=== PATIENT | male | born 1950 | race Hispanic/Latino ===

== ENCOUNTER 2017-06-05 10:54 | Emergency (ER) | payer MEDICARE ==
--- NOTE | 2017-06-05 14:33 | Emergency Department Report ---
ED Extremity Problem HPI - General Chief complaint: Extremity Injury, Lower Stated complaint: LT FOOT SWOLLEN Time Seen by Provider: 06/05/17 14:05 Source: patient, family Mode of arrival: Ambulatory Limitations: No Limitations - History of Present Illness Initial comments: Patient here complaining of left foot swelling for several days. Patient reports that the left side of his other foot appears red. He reports pain at 7 out of 10 . Pain is achy in. Patient denies any injuries. Patient and says that he has a history of pulmonary embolism and he is on aspirin. Denies any chest pain or shortness of breath. Denies any fever or chills. Denies any nausea or vomiting. Patient does have a primary care physician who is Dr. Magallon. Patient also has history of CVA with left-sided deficit. He drove himself to the emergency room. Patient is fully ambulatory. He has a history of deep vein thrombosis in his right arm. Diabetes GERD heart attack in 2012 in 2013, hypertension 15 years on medication COPD and home O2, coronary stent, AAA repair, bilateral knee replacement. He did not take any pain medication prior to coming to the emergency room. He said he had similar incident in the past and his doctor told him it was from standing to long and to elevate his feet but because he's had the redness and also has a history of blood clot he wanted to come in to get it checked MD Complaint: extremity pain, extremity swelling Onset/Timin -: days(s) Location: left, lower extremity History of Same: Yes -: No myalgia, Yes arthralgia, No fever, No associated dyspnea, No associated chest pain Radiation: none Severity scale (0 -10): 7 Quality: aching Consistency: intermittent Improves with: nothing Worsens with: weight bearing, walking, palpation, rest Associated Symptoms: arthralgias, other (redness to left side of foot). denies : chest pain, shortness of breath, fever, myalgias, rash - Related Data Home Medications Medication Instructions Recorded Confirmed Last Taken Aspirin [Aspirin TAB] 81 mg PO QDAY 12/10/13 12/10/15 12/07/15 09:00 Sildenafil Citrate [Viagra] 50 mg PO QDAY PRN 01/11/15 12/10/15 12/08/15 09:00 oxyCODONE /ACETAMINOPHEN [Percocet 1 mg PO Q6H PRN 04/05/15 12/10/15 12/09/15 09 :00 5/325 mg] ALPRAZolam [Xanax TAB] 1 mg PO BID PRN 08/02/15 12/10/15 12/08/15 21:00 Insulin Lispro [HumaLOG VIAL] 7 units SUB-Q TID 08/02/15 12/10/15 12/09/15 12:00 Potassium Chloride [K-Dur] 20 meq PO BID 08/02/15 12/10/15 12/09/15 09:00 Previous Rx's Medication Instructions Recorded Last Taken Type Antacid [Alum-Mag Hydrox-Simeth 30 ml PO Q4H PRN oral.liqd 01/22/15 12/09/15 09 :00 Rx [id number]/[id number]] Furosemide [Lasix] 40 mg PO DAILY #30 tablet 01/22/15 12/09/15 09:00 Rx Levothyroxine [Synthroid] 100 mcg PO QAM #30 tablet 01/22/15 12/09/15 06:00 Rx Metolazone [Zaroxolyn] 2.5 mg PO QDAY #30 tablet 01/22/15 12/09/15 09:00 Rx Modafinil [Provigil] 200 mg PO QDAY #30 tablet 01/22/15 12/09/15 09:00 Rx Niacin/Simvastatin [Simcor 1,000 mg PO QHS #30 tbmp.24hr 01/22/15 12/09/15 09: 00 Rx 1,000-20 mg] Ranolazine ER [Ranexa ER] 500 mg PO BID #60 tablet 01/22/15 12/09/15 09:00 Rx Simvastatin [Zocor TAB] 20 mg PO QHS #30 tablet 01/22/15 12/09/15 22:00 Rx Zolpidem [Ambien] 10 mg PO QHS PRN tablet 01/22/15 12/09/15 22:00 Rx Arformoterol Nebu [Brovana Nebu] 15 mcg IH Q12HRT #1 ml 04/07/15 12/09/15 09:00 Rx DULoxetine [Cymbalta] 60 mg PO QDAY #30 capsule 04/07/15 12/09/15 09:[address] [Depakote Dr] 500 mg PO TID #90 tablet 04/07/15 12/09/15 09:00 Rx HYDROcodone/APAP 10-325 [[place] 1 each PO Q6H PRN #60 tablet 04/07/15 12/07/15 09 :00 Rx 10-325 mg TAB] Insulin Glargine [Lantus VIAL] 30 unit SUB-Q QHS #100 units 04/07/15 12/09/15 22 :00 Rx Losartan [Cozaar] 12.5 mg PO QDAY #30 tablet 04/07/15 12/09/15 09:00 Rx Metoprolol [Lopressor TAB] 25 mg PO QDAY #30 tablet 04/07/15 12/09/15 09:00 Rx OLANzapine [Zyprexa] 20 mg PO QHS #30 tablet 04/07/15 12/10/15 Rx metFORMIN [Glucophage] 500 mg PO BID #60 tablet 04/07/15 12/10/15 05:30 Rx Acetaminophen/Codeine [Tylenol 1 tab PO Q6H PRN #12 tab 06/05/17 Unknown Rx /Codeine # 3 tab] Clindamycin [Clindamycin CAP] 300 mg PO Q8H #30 cap 06/05/17 Unknown Rx Allergies Allergy/AdvReac Type Severity Reaction Status Date / Time Penicillins Allergy Severe Swelling Verified 10/22/15 07:35 bismuth subsalicylate AdvReac Vomiting Verified 10/15/15 16:09 [From Pepto-Bismol] squash Allergy Hives Uncoded 11/30/15 14:39 ED Review of Systems ROS: Stated complaint: LT FOOT SWOLLEN Other details as noted in HPI Comment: All other systems reviewed and negative Constitutional: denies: chills, fever Respiratory: no symptoms reported Cardiovascular: edema. denies: chest pain, palpitations, syncope Gastrointestinal: denies: abdominal pain, nausea, vomiting Musculoskeletal: joint swelling, arthralgia. denies: back pain Skin: change in color (redness to left side of foot) Neurological: denies: headache, numbness, paresthesias, confusion ED Past Medical Hx - Past Medical History Previous Medical History?: Yes Hx Hypertension: Yes (X 15 YRS) Hx CVA: Yes (L sided deficits) Hx Heart Attack/AMI: Yes (X 2 2011,2012) Hx Congestive Heart Failure: Yes (2010) Hx Diabetes: Yes Hx Deep Vein Thrombosis: Yes (RT ARM) Hx Pulmonary Embolism: Yes (RT SIDE 2011) Hx GERD: Yes Hx Renal Disease: No Hx Sickle Cell Disease: No Hx Arthritis: Yes Hx Seizures: Yes (LAST ONE 1 1/2 YR AGO) Hx COPD: Yes (Home O2) Hx HIV: No Additional medical history: Uses a cane for knee replacement surgery on right knee 2013. States has slight left side weakness from previous stroke. - Surgical History Past Surgical History?: Yes Hx Coronary Stent: Yes Hx Open Heart Surgery: Yes (CORONARY STENT X1;AAA) Additional Surgical History: bilateral knee replacement - Family History Family history: CAD/VT, hypertension - Social History Smoking Status: Former Smoker Substance Use Type: None Other Social History: lives with family - Medications Home Medications: Home Medications Medication Instructions Recorded Confirmed Last Taken Type Aspirin [Aspirin TAB] 81 mg PO QDAY 12/10/13 12/10/15 12/07/15 09:00 History Sildenafil Citrate [Viagra] 50 mg PO QDAY PRN 01/11/15 12/10/15 12/08/15 09:00 History Antacid [Alum-Mag Hydrox-Simeth 30 ml PO Q4H PRN oral.liqd 01/22/15 12/10/15 09:00 Rx [id number]/5Ml] Furosemide [Lasix] 40 mg PO DAILY #30 tablet 01/22/15 12/10/15 12/09/15 09:00 Rx Levothyroxine [Synthroid] 100 mcg PO QAM #30 tablet 01/22/15 12/10/15 12/09/15 06:00 Rx Metolazone [Zaroxolyn] 2.5 mg PO QDAY #30 tablet 01/22/15 12/10/15 12/09/15 09: 00 Rx Modafinil [Provigil] 200 mg PO QDAY #30 tablet 01/22/15 12/10/15 12/09/15 09:00 Rx Niacin/Simvastatin [Simcor 1,000 mg PO QHS #30 tbmp.24hr 01/22/15 12/10/1512/09 09:00 Rx 1,000-20 mg] Ranolazine ER [Ranexa ER] 500 mg PO BID #60 tablet 01/22/15 12/10/15 12/09/15 09 :00 Rx Simvastatin [Zocor TAB] 20 mg PO QHS #30 tablet 01/22/15 12/10/15 12/09/15 22: 00 Rx Zolpidem [Ambien] 10 mg PO QHS PRN tablet 01/22/15 12/10/15 12/09/15 22:00 Rx oxyCODONE /ACETAMINOPHEN [Percocet 1 mg PO Q6H PRN 04/05/15 12/10/15 12/09/15 09 :00 History 5/325 mg] Arformoterol Nebu [Brovana Nebu] 15 mcg IH Q12HRT #1 ml 04/07/15 12/10/15 09:00 Rx DULoxetine [Cymbalta] 60 mg PO QDAY #30 capsule 04/07/15 12/10/15 12/09/15 09: 00 Rx Divalproex [Good Ariza] 500 mg PO TID #90 tablet 04/07/15 12/10/15 12/09/15 09:00 Rx HYDROcodone/APAP 10-325 [[place] 1 each PO Q6H PRN #60 tablet 04/07/15 12/10/15 09:00 Rx 10-325 mg TAB] Insulin Glargine [Lantus VIAL] 30 unit SUB-Q QHS #100 units 04/07/15 12/10/15 22:00 Rx Losartan [Cozaar] 12.5 mg PO QDAY #30 tablet 04/07/15 12/10/15 12/09/15 09:00 Rx Metoprolol [Lopressor TAB] 25 mg PO QDAY #30 tablet 04/07/15 12/10/15 12/09/15 09:00 Rx OLANzapine [Zyprexa] 20 mg PO QHS #30 tablet 04/07/15 12/10/15 12/10/15 Rx metFORMIN [Glucophage] 500 mg PO BID #60 tablet 04/07/15 12/10/15 12/10/15 05: 30 Rx ALPRAZolam [Xanax TAB] 1 mg PO BID PRN 08/02/15 12/10/15 12/08/15 21:00 History Insulin Lispro [HumaLOG VIAL] 7 units SUB-Q TID 08/02/15 12/10/15 12/09/15 12: 00 History Potassium Chloride [K-Dur] 20 meq PO BID 08/02/15 12/10/15 12/09/15 09:00 History Acetaminophen/Codeine [Tylenol 1 tab PO Q6H PRN #12 tab 06/05/17 Unknown Rx /Codeine # 3 tab] Clindamycin [Clindamycin CAP] 300 mg PO Q8H #30 cap 06/05/17 Unknown Rx ED Physical Exam - General Limitations: No Limitations General appearance: alert, in no apparent distress - Head Head exam: Present: atraumatic, normocephalic, normal inspection - Eye Eye exam: Present: normal appearance, PERRL, EOMI Pupils: Present: normal accommodation - ENT ENT exam: Present: normal exam, normal orophraynx, mucous membranes moist, TM's normal bilaterally, normal external ear exam - Neck Neck exam: Present: normal inspection, full ROM. Absent: tenderness, meningismus, lymphadenopathy - Respiratory Respiratory exam: Present: normal lung sounds bilaterally. Absent: respiratory distress, wheezes, rales, rhonchi, stridor, chest wall tenderness, accessory muscle use - Cardiovascular Cardiovascular Exam: Present: regular rate, normal rhythm, normal heart sounds - GI/Abdominal GI/Abdominal exam: Present: soft, normal bowel sounds. Absent: distended, tenderness, guarding, rebound, rigid - Extremities Exam Extremities exam: Present: normal inspection - Expanded Lower Extremity Exam Left Hip exam: Present: normal inspection, full ROM, pelvic stability. Absent: tenderness, swelling, abrasion, laceration, ecchymosis, deformity, crepidus, dislocation, erythema, external rotation, internal rotation, shortening Upper Leg exam: Present: normal inspection, full ROM. Absent: tenderness, swelling, abrasion, laceration, ecchymosis, deformity, crepidus, dislocation, erythema Knee exam: Present: normal inspection, full ROM, full knee extension. Absent: tenderness, swelling, abrasion, laceration, ecchymosis, deformity, crepidus, dislocation, erythema, effusion, pain w/ pronation/supination, posterior draw sign, pain/laxity with valgus, pain/laxity with varus Lower Leg exam: Present: normal inspection, full ROM. Absent: tenderness, swelling, abrasion, laceration, ecchymosis, deformity, crepidus, dislocation, erythema, palpable cord, Ever's sign Ankle exam: Present: normal inspection, full ROM, swelling. Absent: tenderness , abrasion, laceration, ecchymosis, deformity, crepidus, dislocation, erythema Foot/Toe exam: Present: normal inspection, full ROM, tenderness (inner lateral foot anteriorly), swelling (lateral foot with mild swelling), erythema (mild erythema to inner lateral foot). Absent: abrasion, laceration, ecchymosis, deformity, crepidus, dislocation, amputation, puncture wound, foreign body, calcaneal tenderness, tenderness at base of 5th metatarsal, nail avulsion, subungual hematoma Neuro vascular tendon exam: Present: no vascular compromise. Absent: pulse deficit, abnormal cap refill, motor deficit, sensory deficit, tendon deficit, extremity cold to touch, pallor, abnormal 2-point discrimination, decreased fine /light touch, foot drop, peroneal nerve deficit, significant pain with passive ROM of distal joint Gait: Positive: observed and limited by pain - Back Exam Back exam: Present: normal inspection, full ROM. Absent: tenderness, CVA tenderness (R), CVA tenderness (L), muscle spasm, paraspinal tenderness, vertebral tenderness, rash noted - Neurological Exam Neurological exam: Present: alert, oriented X3, abnormal gait (abnormal gait to left lower extremity due to previous history of stroke and left-sided weakness) , reflexes normal - Psychiatric Psychiatric exam: Present: normal affect, normal mood - Skin Skin exam: Present: warm, dry, intact, normal color, erythema (Moll area of erythema located to the left inner/lateral foot with mild swelling. Tender to palpate. No induration) ED Course Vital Signs 06/05/17 06/05/17 11:11 16:30 Temperature 97.9 F Pulse Rate 84 Respiratory 18 20 Rate Blood Pressure 137/89 O2 Sat by Pulse 98 Oximetry - Reevaluation(s) Reevaluation #1: 06/05/17 17:00 She received Motrin 800 mg by mouth in emergency room for pain ED Medical Decision Making - Lab Data Result diagrams: 06/05/17 16:00 06/05/17 16:00 Lab Results 06/05/17 06/05/17 Range/Units 16:00 16:00 WBC 5.0 (4.5-11.0) K/mm3 RBC 4.36 (3.65-5.03) M/mm3 Hgb 12.0 (11.8-15.2) gm/dl Hct 36.8 (35.5-45.6) % MCV 85 (84-94) fl MCH 27 L (28-32) pg MCHC 33 (32-34) % RDW 14.7 (13.2-15.2) % Plt Count 232 (140-440) K/mm3 Lymph % (Auto) 26.2 (13.4-35.0) % [place] % (Auto) 8.0 H (0.0-7.3) % Eos % (Auto) 1.5 (0.0-4.3) % Baso % (Auto) 0.4 (0.0-1.8) % Lymph # 1.3 (1.2-5.4) K/mm3 [place] # 0.4 (0.0-0.8) K/mm3 Eos # 0.1 (0.0-0.4) K/mm3 Baso # 0.0 (0.0-0.1) K/mm3 Seg Neutrophils % 63.9 (40.0-70.0) % Seg Neutrophils # 3.2 (1.8-7.7) K/mm3 PT 13.7 (12.2-14.9) Sec. INR 1.06 (0.87-1.13) APTT 31.2 (24.2-36.6) Sec. - Radiology Data Radiology results: report reviewed X-ray of left foot and ankle reveal left ankle swelling without any fracture or dislocation. No fracture or dislocation to left foot. U/S doppler of left lower extremity revealed no SVT or DVT - Medical Decision Making ED course: An air reports that he has swelling to the foot and ankle for a couple days he reports small area of redness to left lateral foot with pain. Denies any injury. He has a history of blood clot and was concerned. He denies any breath or chest pain. Denies any pain to upper extremities. Denies any nausea or vomiting. Patient given Motrin 800 mg by mouth for pain. I discussed the patient and family his ultrasound and x-ray report. Based on well 's criteria patient is low risk for DVT and ultrasound report shows patient without DVT or SVT to left lower extremity. Report revealed no fracture or dislocation ankle or foot but does have some swelling to ankle. They voiced understanding of discharge instruction and patient discharged home to follow up with his primary care physician in 2 days. Mild cellulitis to left foot and left foot/ankle swelling, arthralgia left foot. Patient discharged home with prescription for and the clindaycin due to penicillin allergy and Motrin. Critical care attestation.: If time is entered above; I have spent that time in minutes in the direct care of this critically ill patient, excluding procedure time. ED Disposition Clinical Impression: Cellulitis of left foot, Arthralgia of left foot, Pain and swelling of left lower extremity Disposition: DC-01 TO HOME OR SELFCARE Is pt being admited?: No Does the pt Need Aspirin: No Condition: Critical Instructions: Arthralgia (ED), Cellulitis (ED) Additional Instructions: Follow-up with primary care physician as instructed Take antibiotic as instructed Prescriptions: Acetaminophen/Codeine [Tylenol /Codeine # 3 tab] 1 tab PO Q6H PRN #12 tab PRN Reason: Pain Clindamycin [Clindamycin CAP] 300 mg PO Q8H #30 cap Referrals: PRIMARY CAREMD [Primary Care Provider] - 06/07/17
--- NOTE | 2017-06-05 15:09 | XRay Report ---
Left ankle, left foot, 3 views of each: Swelling. There is mild edema of the soft tissues around the ankle mostly noted anteriorly. No significant swelling identified in the foot. The visualized bones, joints, and soft tissues are unremarkable. Impression: Nonspecific ankle swelling.
[2017-06-05] MEDS ORDERED: MOTRIN PO ONE (15:43)
[2017-06-05 16:20] LABS: Basophils % (Auto) 0.4 % (0.0-1.8); Eosinophils % (Auto) 1.5 % (0.0-4.3); Hematocrit 36.8 % (35.5-45.6); Mean Corpuscular HGB Conc 33 % (32-34); Mean Corpuscular Hemoglobin 27 pg (28-32); Mean Corpuscular Volume 85 fl (84-94); Platelet Count 232 K/mm3 (140-440); Red Blood Count 4.36 M/mm3 (3.65-5.03); Red Cell Distribution Width 14.7 % (13.2-15.2)
[2017-06-05 16:29] LABS: INR 1.06 (0.87-1.13)
[2017-06-05 16:30] LABS: Partial Thromboplastin Time 31.2 Sec. (24.2-36.6)
[2017-06-05 17:05] LABS: Anion Gap 21 mmol/L; Blood Urea Nitrogen 12 mg/dL (9-20); Calcium 9.1 mg/dL (8.4-10.2); Carbon Dioxide 23 mmol/L (22-30); Glucose 105 mg/dL (75-100); Potassium 5.5 mmol/L (3.6-5.0); Sodium 138 mmol/L (137-145)
[2017-06-05 17:51] VITALS: BP 136/84
--- NOTE | 2017-06-07 10:32 | Vascular Lab Report ---
Left Lower Extremity Venous Duplex Study: Reason for Exam: Swelling of the left lower extremity. Comments on the Right: A limited duplex study was done of the proximal veins of the right lower extremity. All veins visualized are freely compressible without evidence of internal echogenicity. Flow is spontaneous and phasic throughout. No evidence of acute or chronic thrombus is seen in any of the vessels visualized. Comments on the Left: All veins visualized are freely compressible without evidence of internal echogenicity. Flow is spontaneous and phasic throughout. No evidence of acute or chronic thrombus is seen in any of the vessels visualized. Impression: No evidence of acute or chronic deep venous thrombosis in the left lower extremity.
== END 2017-06-05 17:52 | disposition home or self-care (01) ==
LOC: ED 10:54
DX: L03.116 Cellulitis of left lower limb (principal); I11.0 Hypertensive heart disease with heart failure; I50.9 Heart failure, unspecified; E11.9 Type 2 diabetes mellitus without complications; M19.90 Unspecified osteoarthritis, unspecified site; I25.2 Old myocardial infarction; J44.9 Chronic obstructive pulmonary disease, unspecified; K21.9 Gastro-esophageal reflux disease without esophagitis; Z79.82 Long term (current) use of aspirin; Z79.4 Long term (current) use of insulin; Z88.0 Allergy status to penicillin; Z88.8 Allergy status to other drugs, medicaments and biological substances; Z86.73 Personal history of transient ischemic attack (TIA), and cerebral infarction without residual deficits; Z95.1 Presence of aortocoronary bypass graft
CPT/HCPCS: 36415; 80048; 85025; 85610; 85730; 99284

== ENCOUNTER 2017-11-05 08:16 | Emergency (ER) | payer MEDICARE ==
[2017-11-05 08:28] VITALS: BP 131/90
[2017-11-05] MEDS ORDERED: TORADOL IM ONE (10:32)
--- NOTE | 2017-11-05 10:58 | XRay Report ---
Right hip 2 views: X. History: Right hip pain for 3 months. Findings: No acute abnormality of the hip joint. No lytic or blastic lesion. Calcification in the lateral aspect of the superior part of the acetabulum. Impression: No evidence of acute fracture. Calcification probably related to old injury.
--- NOTE | 2017-11-05 11:04 | Emergency Department Report ---
ED Extremity Problem HPI - General Chief complaint: Extremity Problem,Nontraumatic Stated complaint: RIGHT HIP PAIN Source: patient Mode of arrival: Ambulatory Limitations: No Limitations - History of Present Illness Initial comments: 67-year-old male comes in today for complaint of right hip pain shooting down her right left leg 3 months. Patient does admit to having a fall couple weeks ago. Patient has a past medical history of hypothyroidism hypertension diabetes and chronic pain management. Patient reports that the pain is at his right hip bone. He denies any swelling denies any warmth. -: month(s) (3) Location: right, lower extremity History of Same: No Severity scale (0 -10): 10 Quality: sharp Consistency: intermittent (getting worse) Associated Symptoms: denies other symptoms - Related Data Home Medications Medication Instructions Recorded Confirmed Last Taken Aspirin [Aspirin TAB] 81 mg PO QDAY 12/10/13 12/10/15 12/07/15 09:00 Sildenafil Citrate [Viagra] 50 mg PO QDAY PRN 01/11/15 12/10/15 12/08/15 09:00 oxyCODONE /ACETAMINOPHEN [Percocet 1 mg PO Q6H PRN 04/05/15 12/10/15 12/09/15 09 :00 5/325 mg] ALPRAZolam [Xanax TAB] 1 mg PO BID PRN 08/02/15 12/10/15 12/08/15 21:00 Insulin Lispro [HumaLOG VIAL] 7 units SUB-Q TID 08/02/15 12/10/15 12/09/15 12:00 Potassium Chloride [K-Dur] 20 meq PO BID 08/02/15 12/10/15 12/09/15 09:00 Previous Rx's Medication Instructions Recorded Last Taken Type Antacid [Alum-Mag Hydrox-Simeth 30 ml PO Q4H PRN oral.liqd 01/22/15 12/09/15 09 :00 Rx [id number]/5Ml] Furosemide [Lasix] 40 mg PO DAILY #30 tablet 01/22/15 12/09/15 09:00 Rx Levothyroxine [Synthroid] 100 mcg PO QAM #30 tablet 01/22/15 12/09/15 06:00 Rx Metolazone [Zaroxolyn] 2.5 mg PO QDAY #30 tablet 01/22/15 12/09/15 09:00 Rx Modafinil [Provigil] 200 mg PO QDAY #30 tablet 01/22/15 12/09/15 09:00 Rx Niacin/Simvastatin [Simcor 1,000 mg PO QHS #30 tbmp.24hr 01/22/15 12/09/15 09: 00 Rx 1,000-20 mg] Ranolazine ER [Ranexa ER] 500 mg PO BID #60 tablet 01/22/15 12/09/15 09:00 Rx Simvastatin [Zocor TAB] 20 mg PO QHS #30 tablet 01/22/15 12/09/15 22:00 Rx Zolpidem [Ambien] 10 mg PO QHS PRN tablet 01/22/15 12/09/15 22:00 Rx Arformoterol Nebu [Brovana Nebu] 15 mcg IH Q12HRT #1 ml 04/07/15 12/09/15 09:00 Rx DULoxetine [Cymbalta] 60 mg PO QDAY #30 capsule 04/07/15 12/09/15 09:[address] [Good Ariza] 500 mg PO TID #90 tablet 04/07/15 12/09/15 09:00 Rx HYDROcodone/APAP 10-325 [[place] 1 each PO Q6H PRN #60 tablet 04/07/15 12/07/15 09 :00 Rx 10-325 mg TAB] Insulin Glargine [Lantus VIAL] 30 unit SUB-Q QHS #100 units 04/07/15 12/09/15 22 :00 Rx Losartan [Cozaar] 12.5 mg PO QDAY #30 tablet 04/07/15 12/09/15 09:00 Rx Metoprolol [Lopressor TAB] 25 mg PO QDAY #30 tablet 04/07/15 12/09/15 09:00 Rx OLANzapine [Zyprexa] 20 mg PO QHS #30 tablet 04/07/15 12/10/15 Rx metFORMIN [Glucophage] 500 mg PO BID #60 tablet 04/07/15 12/10/15 05:30 Rx Acetaminophen/Codeine [Tylenol 1 tab PO Q6H PRN #12 tab 06/05/17 Unknown Rx /Codeine # 3 tab] Clindamycin [Clindamycin CAP] 300 mg PO Q8H #30 cap 06/05/17 Unknown Rx Naproxen 500 mg PO TID #15 tablet 11/05/17 Unknown Rx Allergies Allergy/AdvReac Type Severity Reaction Status Date / Time Penicillins Allergy Severe Swelling Verified 10/22/15 07:35 bismuth subsalicylate AdvReac Vomiting Verified 10/15/15 16:09 [From Pepto-Bismol] squash Allergy Hives Uncoded 11/30/15 14:39 ED Review of Systems ROS: Stated complaint: RIGHT HIP PAIN Other details as noted in HPI Constitutional: denies: chills, fever Eyes: denies: eye pain, eye discharge, vision change ENT: denies: ear pain, throat pain Respiratory: denies: cough, shortness of breath, wheezing Cardiovascular: denies: chest pain, palpitations Endocrine: no symptoms reported Gastrointestinal: denies: abdominal pain, nausea, diarrhea Genitourinary: denies: urgency, dysuria Musculoskeletal: arthralgia (rt hip) Skin: denies: rash, lesions Neurological: denies: headache, weakness, paresthesias Psychiatric: as per HPI Hematological/Lymphatic: denies: easy bleeding, easy bruising ED Past Medical Hx - Past Medical History Hx Hypertension: Yes (X 15 YRS) Hx CVA: Yes (L sided deficits) Hx Heart Attack/AMI: Yes (X 2 2011,2012) Hx Congestive Heart Failure: Yes (2010) Hx Diabetes: Yes Hx Deep Vein Thrombosis: Yes (RT ARM) Hx Pulmonary Embolism: Yes (RT SIDE 2011) Hx GERD: Yes Hx Renal Disease: No Hx Sickle Cell Disease: No Hx Arthritis: Yes Hx Seizures: Yes (LAST ONE 1 1/2 YR AGO) Hx COPD: Yes (Home O2) Hx HIV: No Additional medical history: Uses a cane for knee replacement surgery on right knee 2013. States has slight left side weakness from previous stroke. - Surgical History Hx Coronary Stent: Yes Hx Open Heart Surgery: Yes (CORONARY STENT X1;AAA) Additional Surgical History: bilateral knee replacement - Social History Smoking Status: Former Smoker Substance Use Type: Alcohol, Prescribed - Medications Home Medications: Home Medications Medication Instructions Recorded Confirmed Last Taken Type Aspirin [Aspirin TAB] 81 mg PO QDAY 12/10/13 12/10/15 12/07/15 09:00 History Sildenafil Citrate [Viagra] 50 mg PO QDAY PRN 01/11/15 12/10/15 12/08/15 09:00 History Antacid [Alum-Mag Hydrox-Simeth 30 ml PO Q4H PRN oral.liqd 01/22/15 12/10/15 09:00 Rx [id number]/5Ml] Furosemide [Lasix] 40 mg PO DAILY #30 tablet 01/22/15 12/10/15 12/09/15 09:00 Rx Levothyroxine [Synthroid] 100 mcg PO QAM #30 tablet 01/22/15 12/10/15 12/09/15 06:00 Rx Metolazone [Zaroxolyn] 2.5 mg PO QDAY #30 tablet 01/22/15 12/10/15 12/09/15 09: 00 Rx Modafinil [Provigil] 200 mg PO QDAY #30 tablet 01/22/15 12/10/15 12/09/15 09:00 Rx Niacin/Simvastatin [Simcor 1,000 mg PO QHS #30 tbmp.24hr 01/22/15 12/10/1512/09 09:00 Rx 1,000-20 mg] Ranolazine ER [Ranexa ER] 500 mg PO BID #60 tablet 01/22/15 12/10/15 12/09/15 09 :00 Rx Simvastatin [Zocor TAB] 20 mg PO QHS #30 tablet 01/22/15 12/10/15 12/09/15 22: 00 Rx Zolpidem [Ambien] 10 mg PO QHS PRN tablet 01/22/15 12/10/15 12/09/15 22:00 Rx oxyCODONE /ACETAMINOPHEN [Percocet 1 mg PO Q6H PRN 04/05/15 12/10/15 12/09/15 09 :00 History 5/325 mg] Arformoterol Nebu [Brovana Nebu] 15 mcg IH Q12HRT #1 ml 04/07/15 12/10/15 09:00 Rx DULoxetine [Cymbalta] 60 mg PO QDAY #30 capsule 04/07/15 12/10/15 12/09/15 09: [address] [Depdafne Dr] 500 mg PO TID #90 tablet 04/07/15 12/10/15 12/09/15 09:00 Rx HYDROcodone/APAP 10-325 [[place] 1 each PO Q6H PRN #60 tablet 04/07/15 12/10/15 09:00 Rx 10-325 mg TAB] Insulin Glargine [Lantus VIAL] 30 unit SUB-Q QHS #100 units 04/07/15 12/10/15 22:00 Rx Losartan [Cozaar] 12.5 mg PO QDAY #30 tablet 04/07/15 12/10/15 12/09/15 09:00 Rx Metoprolol [Lopressor TAB] 25 mg PO QDAY #30 tablet 04/07/15 12/10/15 12/09/15 09:00 Rx OLANzapine [Zyprexa] 20 mg PO QHS #30 tablet 04/07/15 12/10/15 12/10/15 Rx metFORMIN [Glucophage] 500 mg PO BID #60 tablet 04/07/15 12/10/15 12/10/15 05: 30 Rx ALPRAZolam [Xanax TAB] 1 mg PO BID PRN 08/02/15 12/10/15 12/08/15 21:00 History Insulin Lispro [HumaLOG VIAL] 7 units SUB-Q TID 08/02/15 12/10/15 12/09/15 12: 00 History Potassium Chloride [K-Dur] 20 meq PO BID 08/02/15 12/10/15 12/09/15 09:00 History Acetaminophen/Codeine [Tylenol 1 tab PO Q6H PRN #12 tab 06/05/17 Unknown Rx /Codeine # 3 tab] Clindamycin [Clindamycin CAP] 300 mg PO Q8H #30 cap 06/05/17 Unknown Rx Naproxen 500 mg PO TID #15 tablet 11/05/17 Unknown Rx ED Physical Exam - General Limitations: No Limitations General appearance: alert, in no apparent distress - Head Head exam: Present: atraumatic, normocephalic - Eye Eye exam: Present: normal appearance - ENT ENT exam: Present: mucous membranes moist - Respiratory Respiratory exam: Present: normal lung sounds bilaterally. Absent: respiratory distress - Cardiovascular Cardiovascular Exam: Present: regular rate, normal rhythm. Absent: systolic murmur, diastolic murmur, rubs, gallop - GI/Abdominal GI/Abdominal exam: Present: soft, normal bowel sounds - Expanded Lower Extremity Exam Right Hip exam: Present: tenderness (greater trochanter, tenderness to palpate down the gluteal and posterior aspect of the hamstring.). Absent: swelling, ecchymosis, deformity, crepidus, erythema Knee exam: Present: normal inspection Lower Leg exam: Present: normal inspection Ankle exam: Present: normal inspection, full ROM Foot/Toe exam: Present: normal inspection, full ROM Gait: Positive: not tested/not observed - Back Exam Back exam: Present: normal inspection - Neurological Exam Neurological exam: Present: alert, oriented X3 - Psychiatric Psychiatric exam: Present: normal affect, normal mood - Skin Skin exam: Present: warm, dry, intact, normal color. Absent: rash ED Course Vital Signs 11/05/17 08:20 Temperature 98.7 F Pulse Rate 94 H Respiratory 18 Rate Blood Pressure 131/90 O2 Sat by Pulse 95 Oximetry ED Medical Decision Making - Radiology Data Radiology results: report reviewed, image reviewed Findings: No acute abnormality of the hip joint. No lytic or blastic lesion. Calcification in the lateral aspect of the superior part of the acetabulum. Impression: No evidence of acute fracture. Calcification probably related to old injury. - Medical Decision Making Patient has been evaluated by this provider fast track. I would discharge patient on naproxen 1 tablet by mouth twice a day and a referral to physical therapy for sciatica. Critical care attestation.: If time is entered above; I have spent that time in minutes in the direct care of this critically ill patient, excluding procedure time. ED Disposition Clinical Impression: Sciatica without back pain Qualifiers: Laterality: right Qualified Code(s): M54.31 - Sciatica, right side Disposition: - TO HOME OR SELFCARE Is pt being admited?: No Does the pt Need Aspirin: No Condition: Stable Instructions: Sciatica (ED) Additional Instructions: Follow-up with your primary care provider and neurologist. Discussed with them to refer you to physical therapy. Take your medication as prescribed. Prescriptions: Naproxen 500 mg PO TID #15 tablet Referrals: PRIMARY CARE, [Primary Care Provider] - 3-5 Days DAVID VEGA MD [Staff Physician] - 3-5 Days
== END 2017-11-05 11:31 | disposition home or self-care (01) ==
LOC: ED 08:16
DX: M54.31 Sciatica, right side (principal); I10 Essential (primary) hypertension; Z86.73 Personal history of transient ischemic attack (TIA), and cerebral infarction without residual deficits; I25.2 Old myocardial infarction; E11.9 Type 2 diabetes mellitus without complications; K21.9 Gastro-esophageal reflux disease without esophagitis; M19.90 Unspecified osteoarthritis, unspecified site; I82.621 Acute embolism and thrombosis of deep veins of right upper extremity; J44.9 Chronic obstructive pulmonary disease, unspecified; Z88.0 Allergy status to penicillin; Z88.8 Allergy status to other drugs, medicaments and biological substances; Z95.818 Presence of other cardiac implants and grafts; Z79.82 Long term (current) use of aspirin; Z87.891 Personal history of nicotine dependence; W17.89XA Other fall from one level to another, initial encounter; Y93.89 Activity, other specified; Y92.89 Other specified places as the place of occurrence of the external cause; Y99.8 Other external cause status
CPT/HCPCS: 73502; 96372; 99283; J1885

== ENCOUNTER 2018-03-10 11:53 | Emergency (ER) | payer MEDICARE ==
--- NOTE | 2018-03-10 13:05 | Emergency Department Report ---
Chief Complaint: Medical Clearance Stated Complaint: CHEST INJURY Time Seen by Provider: 03/10/18 12:49 - HPI History of Present Illness: 67-year-old male presents to the emergency department with complaint of some discomfort to the lower sternum and upper abdomen after a 3 pound hammer fell off of a door he was working on and hit him in this area. He is mostly concerned with making sure that he does not have any cracked rib. Patient has a past medical history significant for diabetes, coronary artery disease with [place], CHF. He has not taken anything for symptoms. Presentation. - ROS Review of Systems: Positive for chest wall and upper abdominal pain Negative for shortness of breath, fever, back pain, nausea, vomiting, diaphoresis. - Exam Vital Signs: Vital Signs 03/10/18 11:58 Temperature 98.6 F Pulse Rate 82 Respiratory 16 Rate Blood Pressure 115/72 O2 Sat by Pulse 94 Oximetry Physical Exam: Patient has some reproducible tenderness palpation to the lower mid sternum and upper abdomen over the epigastrium. Heart SOUNDS ARE NORMAL TO AUSCULTATION. NO VISIBLE BRUISING. MSE screening note: Focused history and physical exam performed. Due to findings the following was ordered: Patient will have a CBC, BMP, troponin, EKG and a 2 view x-ray of the chest and abdomen. ED Disposition for MSE Condition: Stable Referrals: JAY BOUCHER MD [Primary Care Provider] - 3-5 Days
[2018-03-10 13:41] LABS: Basophils % (Auto) 0.5 % (0.0-1.8); Eosinophils # (Auto) 0.1 K/mm3 (0.0-0.4); Eosinophils % (Auto) 1.5 % (0.0-4.3); Hemoglobin 10.6 gm/dl (11.8-15.2); Lymphocytes # (Auto) 0.7 K/mm3 (1.2-5.4); Lymphocytes % (Auto) 10.9 % (13.4-35.0); Mean Corpuscular HGB Conc 32 % (32-34); Mean Corpuscular Volume 78 fl (84-94); Monocytes # (Auto) 0.5 K/mm3 (0.0-0.8); Monocytes % (Auto) 7.2 % (0.0-7.3); Platelet Count 237 K/mm3 (140-440); Red Blood Count 4.24 M/mm3 (3.65-5.03); Red Cell Distribution Width 15.8 % (13.2-15.2)
[2018-03-10 13:44] LABS: Mean Corpuscular Hemoglobin 25 pg (28-32)
[2018-03-10 13:58] LABS: BUN/Creatinine Ratio 13; Blood Urea Nitrogen 13 mg/dL (9-20); Calcium 8.6 mg/dL (8.4-10.2); Hemolysis Index 11
--- NOTE | 2018-03-10 15:33 | XRay Report ---
FINAL REPORT PROCEDURE: XR CHEST ROUTINE 2V TECHNIQUE: PA and lateral chest radiographs were obtained. CPT 41743 HISTORY: chest trauma, sternal pain COMPARISON: No prior studies are available for comparison. FINDINGS: Lungs are hyperinflated consistent with underlying COPD. Heart size and pulmonary vasculature appear normal. No evidence of pulmonary edema pleural effusion infiltrate or mass. Postsurgical changes are present involving the left shoulder. There is a sideplate fixation screws in place. IMPRESSION: COPD. Postsurgical changes left shoulder. No acute abnormalities are identified. If clinically indicated plain films of the sternum could be obtained for further evaluation..
--- NOTE | 2018-03-10 15:55 | XRay Report ---
FINAL REPORT PROCEDURE: XR ABDOMEN 2V TECHNIQUE: Abdominal series, including supine and upright AP views. HISTORY: Abd pain COMPARISON: No prior studies are available for comparison. FINDINGS: Surgical clips are seen in the right upper quadrant and also project over the pelvis. There appear to be metallic implants in the patient's prostate gland. These are only partially visualized suggesting treatment for prostate malignancy. Moderate thoracolumbar scoliosis present convex to the right. No abnormal masses are seen. There are few air-fluid levels seen on the upright view. These are nonspecific. No definite evidence of bowel obstruction. There is no free intraperitoneal gas.. IMPRESSION: Postsurgical changes are present as described as well as scoliosis. No acute abnormalities are identified. Metallic implants appear to be present within the patient's prostate gland..
--- NOTE | 2018-03-10 16:25 | XRay Report ---
FINAL REPORT PROCEDURE: XR STERNUM 2+V TECHNIQUE: Sternal radiographs, minimum of 2 views, including lateral and oblique projections. HISTORY: sternal pain FROM 5 POUND SLEDGE HAMMER COMPARISON: No prior studies are available for comparison. FINDINGS: No fracture is identified. Alignment of the sternoclavicular joint appears abnormal. I suspect there subluxation on the right. No other abnormalities are identified. IMPRESSION: Abnormal alignment right sternal clavicular joint. Consider CT scan to evaluate for subluxation or dislocation.
--- NOTE | 2018-03-10 16:57 | Emergency Department Report ---
HPI - General Chief Complaint: Medical Clearance Time Seen by Provider: 03/10/18 12:49 - HPI HPI: 67-year-old male presents to the emergency department with complaint of some discomfort to the lower sternum and upper abdomen after a 3 pound hammer fell off of a door he was working on and hit him in this area. He is mostly concerned with making sure that he does not have any cracked rib. Patient has a past medical history significant for diabetes, coronary artery disease with [place], CHF. He has not taken anything for symptoms. ED Past Medical Hx - Past Medical History Hx Hypertension: Yes (X 15 YRS) Hx CVA: Yes (L sided deficits) Hx Heart Attack/AMI: Yes (X 2 2011,2012) Hx Congestive Heart Failure: Yes (2010) Hx Diabetes: Yes Hx Deep Vein Thrombosis: Yes (RT ARM) Hx Pulmonary Embolism: Yes (RT SIDE 2011) Hx GERD: Yes Hx Renal Disease: No Hx Sickle Cell Disease: No Hx Arthritis: Yes Hx Seizures: Yes (LAST ONE 1 1/2 YR AGO) Hx COPD: Yes (Home O2) Hx HIV: No Additional medical history: Uses a cane for knee replacement surgery on right knee Dec. 2013. States has slight left side weakness from previous stroke. - Surgical History Hx Coronary Stent: Yes Hx Open Heart Surgery: Yes (CORONARY STENT X1;AAA) Additional Surgical History: bilateral knee replacement - Social History Smoking Status: Never Smoker - Medications Home Medications: Home Medications Medication Instructions Recorded Confirmed Last Taken Type Aspirin [Aspirin TAB] 81 mg PO QDAY 12/10/13 12/10/15 12/07/15 09:00 History Sildenafil Citrate [Viagra] 50 mg PO QDAY PRN 01/11/15 12/10/15 12/08/15 09:00 History Antacid [Alum-Mag Hydrox-Simeth 30 ml PO Q4H PRN oral.liqd 01/22/15 12/10/15 09:00 Rx [id number]/5Ml] Furosemide [Lasix] 40 mg PO DAILY #30 tablet 01/22/15 12/10/15 12/09/15 09:00 Rx Levothyroxine [Synthroid] 100 mcg PO QAM #30 tablet 01/22/15 12/10/15 12/09/15 06:00 Rx Metolazone [Zaroxolyn] 2.5 mg PO QDAY #30 tablet 01/22/15 12/10/15 12/09/15 09: 00 Rx Modafinil [Provigil] 200 mg PO QDAY #30 tablet 01/22/15 12/10/15 12/09/15 09:00 Rx Niacin/Simvastatin [Simcor 1,000 mg PO QHS #30 tbmp.24hr 01/22/15 12/10/1512/09 09:00 Rx 1,000-20 mg] Ranolazine ER [Ranexa ER] 500 mg PO BID #60 tablet 01/22/15 12/10/15 12/09/15 09 :00 Rx Simvastatin [Zocor TAB] 20 mg PO QHS #30 tablet 01/22/15 12/10/15 12/09/15 22: 00 Rx Zolpidem [Ambien] 10 mg PO QHS PRN tablet 01/22/15 12/10/15 12/09/15 22:00 Rx oxyCODONE /ACETAMINOPHEN [Percocet 1 mg PO Q6H PRN 04/05/15 12/10/15 12/09/15 09 :00 History 5/325 mg] Arformoterol Nebu [Brovana Nebu] 15 mcg IH Q12HRT #1 ml 04/07/15 12/10/15 09:00 Rx DULoxetine [Cymbalta] 60 mg PO QDAY #30 capsule 04/07/15 12/10/15 12/09/15 09: 00 Rx Divalproex [Good Ariza] 500 mg PO TID #90 tablet 04/07/15 12/10/15 12/09/15 09:00 Rx HYDROcodone/APAP 10-325 [[place] 1 each PO Q6H PRN #60 tablet 04/07/15 12/10/15 09:00 Rx 10-325 mg TAB] Insulin Glargine [Lantus VIAL] 30 unit SUB-Q QHS #100 units 04/07/15 12/10/15 22:00 Rx Losartan [Cozaar] 12.5 mg PO QDAY #30 tablet 04/07/15 12/10/15 12/09/15 09:00 Rx Metoprolol [Lopressor TAB] 25 mg PO QDAY #30 tablet 04/07/15 12/10/15 12/09/15 09:00 Rx OLANzapine [Zyprexa] 20 mg PO QHS #30 tablet 04/07/15 12/10/15 12/10/15 Rx metFORMIN [Glucophage] 500 mg PO BID #60 tablet 04/07/15 12/10/15 12/10/15 05: 30 Rx ALPRAZolam [Xanax TAB] 1 mg PO BID PRN 08/02/15 12/10/15 12/08/15 21:00 History Insulin Lispro [HumaLOG VIAL] 7 units SUB-Q TID 08/02/15 12/10/15 12/09/15 12: 00 History Potassium Chloride [K-Dur] 20 meq PO BID 08/02/15 12/10/15 12/09/15 09:00 History Acetaminophen/Codeine [Tylenol 1 tab PO Q6H PRN #12 tab 06/05/17 Unknown Rx /Codeine # 3 tab] Clindamycin [Clindamycin CAP] 300 mg PO Q8H #30 cap 06/05/17 Unknown Rx Naproxen 500 mg PO TID #15 tablet 11/05/17 Unknown Rx HYDROcodone/APAP 5-325 [[place] 1 each PO Q6HR PRN #10 tablet 03/10/18 Unknown Rx 5/325] ED Review of Systems ROS: Stated complaint: CHEST INJURY Other details as noted in HPI Comment: All other systems reviewed and negative Constitutional: denies: chills, fever Eyes: denies: eye pain, eye discharge, vision change ENT: denies: ear pain, throat pain Respiratory: denies: cough, shortness of breath, wheezing Cardiovascular: chest pain. denies: palpitations Gastrointestinal: abdominal pain. denies: nausea, diarrhea Genitourinary: denies: urgency, dysuria Musculoskeletal: denies: back pain, joint swelling, arthralgia Skin: denies: rash, lesions Neurological: denies: headache, weakness, paresthesias Physical Exam - Physical Exam Vital Signs: Vital Signs 03/10/18 11:58 Temperature 98.6 F Pulse Rate 82 Respiratory 16 Rate Blood Pressure 115/72 O2 Sat by Pulse 94 Oximetry Physical Exam: GENERAL: The patient is well-developed well-nourished. HENT: Normocephalic. Atraumatic. Patient has moist mucous membranes. EYES: Extraocular motions are intact. Pupils equal reactive to light bilaterally. NECK: Supple. Trachea is midline. CHEST/LUNGS: Clear to auscultation. There is no respiratory distress noted. There is some mild tenderness to palpation to the lower mid sternum but no crepitus or deformity. HEART/CARDIOVASCULAR: Regular. There is no tachycardia. There is no murmur. ABDOMEN: Abdomen is soft. Mild epigastric abdominal wall tenderness to palpation. No guarding. Patient has normal bowel sounds. There is no abdominal distention. SKIN: Skin is warm and dry. NEURO: The patient is awake, alert, and oriented. The patient is cooperative. The patient has no focal neurologic deficits. The patient has normal speech and gait. MUSCULOSKELETAL: There is no tenderness or deformity. There is no limitation range of motion. There is no evidence of acute injury. ED Course Vital Signs 03/10/18 11:58 Temperature 98.6 F Pulse Rate 82 Respiratory 16 Rate Blood Pressure 115/72 O2 Sat by Pulse 94 Oximetry ED Medical Decision Making - Lab Data Result diagrams: 03/10/18 13:13 03/10/18 13:13 - EKG Data -: EKG Interpreted by Me EKG shows normal: sinus rhythm, axis (left axis deviation), intervals, QRS complexes, ST-T waves Rate: normal - EKG Data When compared to previous EKG there are: no significant change Interpretation: unchanged when compared t (08/05/15) - Radiology Data Radiology results: report reviewed, image reviewed interpreted by me: Chest x-ray does not show any acute process. There are no pleural effusions, obvious pneumonia and there is no pneumothorax. Abdominal x-ray shows nonspecific nodular to bowel gas. PROCEDURE: XR STERNUM 2+V TECHNIQUE: Sternal radiographs, minimum of 2 views, including lateral and oblique projections. HISTORY: sternal pain FROM 5 POUND SLEDGE HAMMER COMPARISON: No prior studies are available for comparison. FINDINGS: No fracture is identified. Alignment of the sternoclavicular joint appears abnormal. I suspect there subluxation on the right. No other abnormalities are identified. IMPRESSION: Abnormal alignment right sternal clavicular joint. Consider CT scan to evaluate for subluxation or dislocation. Transcribed By: JUSTIN Dictated By: TRISTON ELY MD Electronically Authenticated By: TRISTON ELY MD Signed Date/Time: 03/10/18 4936 - Medical Decision Making Patient presents with some pain to the lower sternum and upper abdomen after a 3 -5 pound hammer came down him off the chest and abdomen. No obvious deformity on physical examination. The chest x-ray and abdominal x-ray were unremarkable. The sternal x-ray was read by radiology is concerned for a sternoclavicular right-sided subluxation. However this was not where the patient was hit and he has no pain to palpation or even without palpation to this area. I told the patient that we would need a CT scan to further evaluate this possible injury but he did not have time and would not stay for any further evaluation. I spoke with his PCP, Dr. Boucher, who says that the patient can follow-up with him on Monday and if there is still any issues or discomfort to this area that he will send him for further evaluation and treatment. The patient had labs that were unremarkable and negative troponin and EKG that did not show any signs of ST elevation [place]. - Differential Diagnosis contusion, rib fracture, sternal fracture, [place] Critical Care Time: No Critical care attestation.: If time is entered above; I have spent that time in minutes in the direct care of this critically ill patient, excluding procedure time. ED Disposition Clinical Impression: Chest wall pain, Abdominal wall pain Disposition: TO HOME OR SELFCARE Is pt being admited?: No Condition: Stable Instructions: Chest Pain (ED), Costochondritis (ED), Abdominal Pain (ED) Additional Instructions: Please follow-up with your primary care physician on Monday. Return to the emergency Department with any worsening of her symptoms or any acute distress. You have been prescribed a medication that is sedating and therefore should not be taken prior to driving, working, and responsible for children and in no way should be mixed with alcohol of any quantity. Prescriptions: HYDROcodone/APAP 5-325 [[place] 5/325] 1 each PO Q6HR PRN #10 tablet PRN Reason: Pain Referrals: JAY BOUCHER MD [Primary Care Provider] - [facility] Time of Disposition: 16:57
[2018-03-10 17:05] VITALS: BP 126/84
== END 2018-03-10 17:04 | disposition home or self-care (01) ==
LOC: ED 11:53
DX: R07.89 Other chest pain (principal); R10.13 Epigastric pain; I10 Essential (primary) hypertension; E11.9 Type 2 diabetes mellitus without complications; K21.9 Gastro-esophageal reflux disease without esophagitis; I50.9 Heart failure, unspecified; M19.90 Unspecified osteoarthritis, unspecified site; J44.9 Chronic obstructive pulmonary disease, unspecified; I21.9 Acute myocardial infarction, unspecified; Z79.4 Long term (current) use of insulin; Z86.718 Personal history of other venous thrombosis and embolism; Z86.73 Personal history of transient ischemic attack (TIA), and cerebral infarction without residual deficits; Z86.711 Personal history of pulmonary embolism
CPT/HCPCS: 36415; 71046; 71120; 74019; 80048; 84484; 85025; 93005; 93010; 99284

== ENCOUNTER 2018-04-27 13:04 | Emergency (ER) | payer MEDICARE ==
[2018-04-27 13:23] VITALS: BP 116/84
--- NOTE | 2018-04-27 14:34 | XRay Report ---
PA and lateral chest: Cough, chills. There is a focal linear area of atelectasis at the right lung base. The lungs the lungs appear generally clear and well inflated. Normal heart size with no vascular congestion. No significant change compared to prior exam on March 10, 2018. Impression: No significant findings.
[2018-04-27] MEDS ORDERED: TESSALON PERLES PO ONE ×2 (16:32→16:46)
--- NOTE | 2018-04-27 16:38 | Emergency Department Report ---
- General Chief Complaint: Upper Respiratory Infection Stated Complaint: FLU LIKE SYMPTOMS Time Seen by Provider: 04/27/18 16:26 Source: patient Mode of arrival: Ambulatory Limitations: No Limitations - History of Present Illness Initial Comments: 67 yo with a past medical history CHF, COPD with home O2 when necessary, CVA with residual left-sided weakness, history of right arm DVT, diabetes, GERD, CAD , hypertension, PE, and seizures presents to the hospital complains of cough and cold symptoms 1 week. Patient have a cough productive of white and occasionally yellow brown sputum. Anterior chest wall pain reported with coughing. Patient having subjective fevers with last hospital fever 4 days ago. Patient denies wheezing or shortness of breath. Having difficulty sleeping due to persistent coughing. Patient has not been using his home oxygen lately. Generalized body aches reported. PMD: Dr. Boucher - Related Data Home Medications Medication Instructions Recorded Confirmed Last Taken Aspirin [Aspirin TAB] 81 mg PO QDAY 12/10/13 12/10/15 12/07/15 09:00 Sildenafil Citrate [Viagra] 50 mg PO QDAY PRN 01/11/15 12/10/15 12/08/15 09:00 oxyCODONE /ACETAMINOPHEN [Percocet 1 mg PO Q6H PRN 04/05/15 12/10/15 12/09/15 09 :00 5/325 mg] ALPRAZolam [Xanax TAB] 1 mg PO BID PRN 08/02/15 12/10/15 12/08/15 21:00 Insulin Lispro [HumaLOG VIAL] 7 units SUB-Q TID 08/02/15 12/10/15 12/09/15 12:00 Potassium Chloride [K-Dur] 20 meq PO BID 08/02/15 12/10/15 12/09/15 09:00 Previous Rx's Medication Instructions Recorded Last Taken Type Antacid [Alum-Mag Hydrox-Simeth 30 ml PO Q4H PRN oral.liqd 01/22/15 12/09/15 09 :00 Rx [id number]/5Ml] Furosemide [Lasix] 40 mg PO DAILY #30 tablet 01/22/15 12/09/15 09:00 Rx Levothyroxine [Synthroid] 100 mcg PO QAM #30 tablet 01/22/15 12/09/15 06:00 Rx Metolazone [Zaroxolyn] 2.5 mg PO QDAY #30 tablet 01/22/15 12/09/15 09:00 Rx Modafinil [Provigil] 200 mg PO QDAY #30 tablet 01/22/15 12/09/15 09:00 Rx Niacin/Simvastatin [Simcor 1,000 mg PO QHS #30 tbmp.24hr 01/22/15 12/09/15 09: 00 Rx 1,000-20 mg] Ranolazine ER [Ranexa ER] 500 mg PO BID #60 tablet 01/22/15 12/09/15 09:00 Rx Simvastatin [Zocor TAB] 20 mg PO QHS #30 tablet 01/22/15 12/09/15 22:00 Rx Zolpidem [Ambien] 10 mg PO QHS PRN tablet 01/22/15 12/09/15 22:00 Rx Arformoterol Nebu [Brovana Nebu] 15 mcg IH Q12HRT #1 ml 04/07/15 12/09/15 09:00 Rx DULoxetine [Cymbalta] 60 mg PO QDAY #30 capsule 04/07/15 12/09/15 09:[address] [Good Ariza] 500 mg PO TID #90 tablet 04/07/15 12/09/15 09:00 Rx HYDROcodone/APAP 10-325 [[place] 1 each PO Q6H PRN #60 tablet 04/07/15 12/07/15 09 :00 Rx 10-325 mg TAB] Insulin Glargine [Lantus VIAL] 30 unit SUB-Q QHS #100 units 04/07/15 12/09/15 22 :00 Rx Losartan [Cozaar] 12.5 mg PO QDAY #30 tablet 04/07/15 12/09/15 09:00 Rx Metoprolol [Lopressor TAB] 25 mg PO QDAY #30 tablet 04/07/15 12/09/15 09:00 Rx OLANzapine [Zyprexa] 20 mg PO QHS #30 tablet 04/07/15 12/10/15 Rx metFORMIN [Glucophage] 500 mg PO BID #60 tablet 04/07/15 12/10/15 05:30 Rx Acetaminophen/Codeine [Tylenol 1 tab PO Q6H PRN #12 tab 06/05/17 Unknown Rx /Codeine # 3 tab] Clindamycin [Clindamycin CAP] 300 mg PO Q8H #30 cap 06/05/17 Unknown Rx Naproxen 500 mg PO TID #15 tablet 11/05/17 Unknown Rx HYDROcodone/APAP 5-325 [[place] 1 each PO Q6HR PRN #10 tablet 03/10/18 Unknown Rx 5/325] Azithromycin [Zithromax Z-LUDWIG] 1 dose PO DAILY 5 Days tab 04/27/18 Unknown Rx Benzonatate [Tessalon Perles] 100 mg PO Q8HR #30 capsule 04/27/18 Unknown Rx Allergies Allergy/AdvReac Type Severity Reaction Status Date / Time Penicillins Allergy Severe Swelling Verified 10/22/15 07:35 bismuth subsalicylate AdvReac Vomiting Verified 10/15/15 16:09 [From Pepto-Bismol] squash Allergy Hives Uncoded 11/30/15 14:39 ED Review of Systems ROS: Stated complaint: FLU LIKE SYMPTOMS Other details as noted in HPI Comment: All other systems reviewed and negative ED Past Medical Hx - Past Medical History Hx Hypertension: Yes (X 15 YRS) Hx CVA: Yes (L sided deficits) Hx Heart Attack/AMI: Yes (X 2 2011,2012) Hx Congestive Heart Failure: Yes (2010) Hx Diabetes: Yes Hx Deep Vein Thrombosis: Yes (RT ARM) Hx Pulmonary Embolism: Yes (RT SIDE 2011) Hx GERD: Yes Hx Renal Disease: No Hx Sickle Cell Disease: No Hx Arthritis: Yes Hx Seizures: Yes (LAST ONE 1 1/2 YR AGO) Hx COPD: Yes (Home O2) Hx HIV: No Additional medical history: Uses a cane for knee replacement surgery on right knee 2013. States has slight left side weakness from previous stroke. - Surgical History Hx Coronary Stent: Yes Hx Open Heart Surgery: Yes (CORONARY STENT X1;AAA) Additional Surgical History: bilateral knee replacement - Social History Smoking Status: Former Smoker Substance Use Type: None - Medications Home Medications: Home Medications Medication Instructions Recorded Confirmed Last Taken Type Aspirin [Aspirin TAB] 81 mg PO QDAY 12/10/13 12/10/15 12/07/15 09:00 History Sildenafil Citrate [Viagra] 50 mg PO QDAY PRN 01/11/15 12/10/15 12/08/15 09:00 History Antacid [Alum-Mag Hydrox-Simeth 30 ml PO Q4H PRN oral.liqd 01/22/15 12/10/15 09:00 Rx [id number]/5Ml] Furosemide [Lasix] 40 mg PO DAILY #30 tablet 01/22/15 12/10/15 12/09/15 09:00 Rx Levothyroxine [Synthroid] 100 mcg PO QAM #30 tablet 01/22/15 12/10/15 12/09/15 06:00 Rx Metolazone [Zaroxolyn] 2.5 mg PO QDAY #30 tablet 01/22/15 12/10/15 12/09/15 09: 00 Rx Modafinil [Provigil] 200 mg PO QDAY #30 tablet 01/22/15 12/10/15 12/09/15 09:00 Rx Niacin/Simvastatin [Simcor 1,000 mg PO QHS #30 tbmp.24hr 01/22/15 12/10/1512/09 09:00 Rx 1,000-20 mg] Ranolazine ER [Ranexa ER] 500 mg PO BID #60 tablet 01/22/15 12/10/15 12/09/15 09 :00 Rx Simvastatin [Zocor TAB] 20 mg PO QHS #30 tablet 01/22/15 12/10/15 12/09/15 22: 00 Rx Zolpidem [Ambien] 10 mg PO QHS PRN tablet 01/22/15 12/10/15 12/09/15 22:00 Rx oxyCODONE /ACETAMINOPHEN [Percocet 1 mg PO Q6H PRN 04/05/15 12/10/15 12/09/15 09 :00 History 5/325 mg] Arformoterol Nebu [Brovana Nebu] 15 mcg IH Q12HRT #1 ml 04/07/15 12/10/15 09:00 Rx DULoxetine [Cymbalta] 60 mg PO QDAY #30 capsule 04/07/15 12/10/15 12/09/15 09: 00 Rx Divalproex [Good Ariza] 500 mg PO TID #90 tablet 06/12/2112/10/15 12/09/15 09:00 Rx HYDROcodone/APAP 10-325 [[place] 1 each PO Q6H PRN #60 tablet 04/07/15 12/10/15 09:00 Rx 10-325 mg TAB] Insulin Glargine [Lantus VIAL] 30 unit SUB-Q QHS #100 units 04/07/15 12/10/15 22:00 Rx Losartan [Cozaar] 12.5 mg PO QDAY #30 tablet 04/07/15 12/10/15 12/09/15 09:00 Rx Metoprolol [Lopressor TAB] 25 mg PO QDAY #30 tablet 04/07/15 12/10/15 12/09/15 09:00 Rx OLANzapine [Zyprexa] 20 mg PO QHS #30 tablet 04/07/15 12/10/15 12/10/15 Rx metFORMIN [Glucophage] 500 mg PO BID #60 tablet 04/07/15 12/10/15 12/10/15 05: 30 Rx ALPRAZolam [Xanax TAB] 1 mg PO BID PRN 08/02/15 12/10/15 12/08/15 21:00 History Insulin Lispro [HumaLOG VIAL] 7 units SUB-Q TID 08/02/15 12/10/15 12/09/15 12: 00 History Potassium Chloride [K-Dur] 20 meq PO BID 08/02/15 12/10/15 12/09/15 09:00 History Acetaminophen/Codeine [Tylenol 1 tab PO Q6H PRN #12 tab 06/05/17 Unknown Rx /Codeine # 3 tab] Clindamycin [Clindamycin CAP] 300 mg PO Q8H #30 cap 06/05/17 Unknown Rx Naproxen 500 mg PO TID #15 tablet 11/05/17 Unknown Rx HYDROcodone/APAP 5-325 [[place] 1 each PO Q6HR PRN #10 tablet 03/10/18 Unknown Rx 5/325] Azithromycin [Zithromax Z-LUDWIG] 1 dose PO DAILY 5 Days tab 04/27/18 Unknown Rx Benzonatate [Tessalon Perles] 100 mg PO Q8HR #30 capsule 04/27/18 Unknown Rx ED Physical Exam - General Limitations: No Limitations - Other Other exam information: General: No limitations, patient is alert in no acute distress Head exam: Atraumatic, normocephalic Eyes exam: Normal appearance ENT: Moist mucous membrane, normal oropharynx Neck exam: Normal inspection, full range of motion, no meningismus nontender Respiratory exam: Clear to auscultation bilateral, no wheezes, rales, crackles. Anterior chest wall tenderness Cardiovascular: Normal rate and rhythm, normal heart sounds Abdomen: Soft, nondistended, and nontender, with normal bowel sounds, no rebound, or guarding Extremity: Full range of motion normal inspection no deformity, no calf tenderness or edema Back: Normal Inspection, full range of motion, no tenderness Neurologic: Alert, oriented x3, cranial nerves intact, no motor or sensory deficit Psychiatric: normal affect, normal mood Skin: Warm, dry, intact ED Course Vital Signs 04/27/18 13:21 Temperature 98.4 F Pulse Rate 76 Respiratory 16 Rate Blood Pressure 116/84 O2 Sat by Pulse 96 Oximetry - Reevaluation(s) Reevaluation #1: 04/27/18 16:38 talasalon margaret for cough ED Medical Decision Making - Radiology Data Radiology results: report reviewed LEFT WRIST: Nontraumatic pain. Routine views demonstrate the carpal bones to be well mineralized with well preserved bony mineralization and interosseous joint spaces. The carpal and adjacent articular bones have normal contours. The surrounding soft tissues are unremarkable. IMPRESSION: Normal study. - Medical Decision Making Vital signs unremarkable. Chest x-ray negative. Lungs clear. Patient be treated with Z-Ludwig for possible bronchitis/atypical pneumonia. This patient denies wheezing therefore no steroids will be prescribed at this time. Earnestine Thakkar for cough. Outpatient follow-up recommended. - Differential Diagnosis pneumonia, bronchitis, COPD, viral syndrome Critical Care Time: No Critical care attestation.: If time is entered above; I have spent that time in minutes in the direct care of this critically ill patient, excluding procedure time. ED Disposition Clinical Impression: COPD with acute bronchitis Disposition: TO HOME OR SELFCARE Is pt being admited?: No Does the pt Need Aspirin: No Condition: Stable Instructions: Acute Bronchitis (ED) Additional Instructions: Taken medication as prescribed. Follow-up with your primary care doctor within 3-5 days. Return if symptoms worsen as indicated by your dischrage instructions. Prescriptions: Azithromycin [Zithromax Z-LUDWIG] 1 dose PO DAILY 5 Days tab Benzonatate [Tessalon Perles] 100 mg PO Q8HR #30 capsule Referrals: JAY BOUCHER MD [Staff Physician] - 3-5 Days Time of Disposition: 16:38
== END 2018-04-27 16:48 | disposition home or self-care (01) ==
LOC: ED 13:04
DX: J44.9 Chronic obstructive pulmonary disease, unspecified (principal); J20.9 Acute bronchitis, unspecified; I10 Essential (primary) hypertension; E11.9 Type 2 diabetes mellitus without complications
CPT/HCPCS: 71046

== ENCOUNTER 2018-11-30 12:13 | Inpatient (IN) | payer MEDICARE ==
[~2018-11-30 12:13] MED LIST: D50W (25GM) Syringe IV PRN; MORPHINE IV PRN; NACL 0.9% 1000 ML 1,000 ML IV SCH; PROTONIX IV SCH; SODIUM CHLORIDE FLUSH SYRINGE 10 ML IV PRN; TYLENOL PO PRN; ZOFRAN IV PRN
[2018-11-30 12:26] LABS: Basophils # (Auto) 0.1 K/mm3 (0.0-0.1); Basophils % (Auto) 1.1 % (0.0-1.8); Eosinophils # (Auto) 0.1 K/mm3 (0.0-0.4); Eosinophils % (Auto) 1.3 % (0.0-4.3); Lymphocytes # (Auto) 1.5 K/mm3 (1.2-5.4); Lymphocytes % (Auto) 21.2 % (13.4-35.0); Mean Corpuscular HGB Conc 31 % (32-34); Mean Corpuscular Volume 70 fl (84-94); Monocytes # (Auto) 0.5 K/mm3 (0.0-0.8); Monocytes % (Auto) 7.7 % (0.0-7.3); Platelet Count 370 K/mm3 (140-440); Red Blood Count 5.48 M/mm3 (3.65-5.03); Red Cell Distribution Width 17.9 % (13.2-15.2)
[2018-11-30 12:27] LABS: Hematocrit 38.6 % (35.5-45.6); Hemoglobin 11.8 gm/dl (11.8-15.2)
--- NOTE | 2018-11-30 12:28 | History and Physical Report ---
History of Present Illness Date of examination: 11/30/18 Date of admission: 11/30/2018 Chief complaint: GI bleed, epigastric abdominal pain, symptomatic anemia. History of present illness: Patient is a 68 y.o male who has a h/o CHF, DM-II, A-fib, PUD, on Xarelto for A- fib, presented to my office with progressive fatigue and anemia. Per his lab studies that was done on 11/26/18 when he presented to Emergency department showed low H/H of 9.7/32.0. Patient has epigastric abdominal pain that is dull in nature, severity of pain is 5-6/10, no radiation. Endorses melena, no hematemesis, petechiae. Patient had been passing blood in his stool for the past 2 months, progressively getting worse. Patient started being very fatigue and unable to perform his daily activities. Medications and Allergies Allergies Allergy/AdvReac Type Severity Reaction Status Date / Time Penicillins Allergy Severe Swelling Verified 11/30/18 12:27 bismuth subsalicylate AdvReac Vomiting Verified 11/30/18 12:27 [From Pepto-Bismol] squash Allergy Hives Uncoded 11/30/15 14:39 Home Medications Medication Instructions Recorded Confirmed Last Taken Type Aspirin [Aspirin TAB] 81 mg PO QDAY 12/10/13 12/10/15 12/07/15 09:00 History Sildenafil Citrate [Viagra] 50 mg PO QDAY PRN 01/11/15 12/10/15 12/08/15 09:00 History Antacid [Alum-Mag Hydrox-Simeth 30 ml PO Q4H PRN oral.liqd 01/22/15 12/10/15 12/09/15 09:00 Rx [id number]/5Ml] Furosemide [Lasix] 40 mg PO DAILY #30 tablet 01/22/15 12/10/15 12/09/15 09:00 Rx Levothyroxine [Synthroid] 100 mcg PO QAM #30 tablet 01/22/15 12/10/15 12/09/15 06:00 Rx Modafinil [Provigil] 200 mg PO QDAY #30 tablet 01/22/15 12/10/15 12/09/15 09:00 Rx Niacin/Simvastatin [Simcor 1,000 mg PO QHS #30 tbmp.24hr 01/22/15 12/10/15 12/09/15 09:00 Rx 1,000-20 mg] Ranolazine ER [Ranexa ER] 500 mg PO BID #60 tablet 01/22/15 12/10/15 12/09/15 09:00 Rx Simvastatin (Nf) [Zocor TAB] 20 mg PO QHS #30 tablet 01/22/15 12/10/15 12/09/15 22:00 Rx Zolpidem [Ambien] 10 mg PO QHS PRN tablet 01/22/15 12/10/15 12/09/15 22:00 Rx metOLazone [Zaroxolyn] 2.5 mg PO QDAY #30 tablet 01/22/15 12/10/15 12/09/15 09:00 Rx oxyCODONE /ACETAMINOPHEN [Percocet 1 mg PO Q6H PRN 04/05/15 12/10/15 12/09/15 09:00 History 5/325 mg] Arformoterol Nebu [Brovana Nebu] 15 mcg IH Q12HRT #1 ml 04/07/15 12/10/15 12/09/15 09:00 Rx DULoxetine [Cymbalta] 60 mg PO QDAY #30 capsule 04/07/15 12/10/15 12/09/15 09:[address] [Good Dr] 500 mg PO TID #90 tablet 04/07/15 12/10/15 12/09/15 09:00 Rx HYDROcodone/APAP 10-325 [[place] 1 each PO Q6H PRN #60 tablet 04/07/15 12/10/15 12/07/15 09:00 Rx 10-325 mg TAB] Insulin Glargine [Lantus VIAL] 30 unit SUB-Q QHS #100 units 04/07/15 12/10/15 12/09/15 22:00 Rx Losartan [Cozaar] 12.5 mg PO QDAY #30 tablet 04/07/15 12/10/15 12/09/15 09:00 Rx Metoprolol [Lopressor TAB] 25 mg PO QDAY #30 tablet 04/07/15 12/10/15 12/09/15 09:00 Rx OLANzapine [Zyprexa] 20 mg PO QHS #30 tablet 04/07/15 12/10/15 12/10/15 Rx metFORMIN [Glucophage] 500 mg PO BID #60 tablet 04/07/15 12/10/15 12/10/15 05:30 Rx ALPRAZolam [Xanax TAB] 1 mg PO BID PRN 08/02/15 12/10/15 12/08/15 21:00 History Insulin Lispro [HumaLOG VIAL] 7 units SUB-Q TID 08/02/15 12/10/15 12/09/15 12:00 History Potassium Chloride [K-Dur] 20 meq PO BID 08/02/15 12/10/15 12/09/15 09:00 History Acetaminophen/Codeine [Tylenol 1 tab PO Q6H PRN #12 tab 06/05/17 Unknown Rx /Codeine # 3 tab] Clindamycin [Clindamycin CAP] 300 mg PO Q8H #30 cap 06/05/17 Unknown Rx Naproxen 500 mg PO TID #15 tablet 11/05/17 Unknown Rx HYDROcodone/APAP 5-325 [[place] 1 each PO Q6HR PRN #10 tablet 03/10/18 Unknown Rx 5/325] Azithromycin [Zithromax Z-CIARA] 1 dose PO DAILY 5 Days tab 04/27/18 Unknown Rx Benzonatate [Tessalon Perles] 100 mg PO Q8HR #30 capsule 04/27/18 Unknown Rx Ondansetron [Zofran Odt] 4 mg PO Q8HR #6 tab.rapdis 11/26/18 Unknown Rx traMADol [Ultram 50 MG tab] 50 mg PO Q6HR PRN #10 tablet 11/26/18 Unknown Rx
[2018-11-30 12:35] LABS: INR 0.96 (0.87-1.13)
[2018-11-30 12:36] LABS: Partial Thromboplastin Time 20.3 Sec. (24.2-36.6)
[2018-11-30 12:42] LABS: Albumin 4.8 g/dL (3.9-5); BUN/Creatinine Ratio 25; Blood Urea Nitrogen 28 mg/dL (9-20); Calcium 9.5 mg/dL (8.4-10.2); Hemolysis Index 4
[2018-11-30 12:43] LABS: Alanine Aminotransferase < 5 units/L (7-56)
[2018-11-30 13:19] LABS: Basophils % (Auto) 0.7 % (0.0-1.8); Eosinophils # (Auto) 0.1 K/mm3 (0.0-0.4); Eosinophils % (Auto) 0.9 % (0.0-4.3); Hematocrit 37.5 % (35.5-45.6); Hemoglobin 11.8 gm/dl (11.8-15.2); Lymphocytes # (Auto) 1.4 K/mm3 (1.2-5.4); Mean Corpuscular HGB Conc 31 % (32-34); Mean Corpuscular Volume 70 fl (84-94); Monocytes # (Auto) 0.5 K/mm3 (0.0-0.8); Monocytes % (Auto) 7.1 % (0.0-7.3); Platelet Count 360 K/mm3 (140-440); Red Blood Count 5.36 M/mm3 (3.65-5.03); Red Cell Distribution Width 18.1 % (13.2-15.2)
[2018-11-30 13:25] LABS: Albumin 4.7 g/dL (3.9-5); BUN/Creatinine Ratio 25; Blood Urea Nitrogen 27 mg/dL (9-20); Calcium 9.5 mg/dL (8.4-10.2); Hemolysis Index 5
[2018-11-30 13:26] LABS: Alanine Aminotransferase < 5 units/L (7-56)
[2018-11-30 13:29] LABS: INR 1.01 (0.87-1.13); Partial Thromboplastin Time 23.4 Sec. (24.2-36.6)
[2018-11-30] MEDS ORDERED: MORPHINE IV ONE (13:38)
[2018-11-30] MEDS ORDERED: ZOFRAN IV ONE (13:38)
--- NOTE | 2018-11-30 13:48 | Cat Scan Report ---
CT ABDOMEN PELVIS WITHOUT CONTRAST: HISTORY: Epigastric abdominal pain, GI bleeding. COMPARISON: none. TECHNIQUE: Helical CT in 1.25mm intervals without IV contrast. Sagittal and coronal reconstructions. FINDINGS: Lung bases: Normal. Liver: Normal. Biliary system: Cholecystectomy. No biliary dilatation. Pancreas: Normal. Spleen: Normal. Kidneys/ureters/bladder: Multiple bilateral renal cysts are identified. The largest cyst measures 5.5 cm at the superior pole of the left kidney. No evidence for nephrolithiasis or hydronephrosis. The ureters and bladder are unremarkable. Radiotherapy beads are noted in the prostate bed. Adrenal glands: Normal. Aorta: Normal. Intestines: There are a few scattered diverticula in the descending colon. No evidence for GI obstruction, obvious mass or inflammation. Please note this exam is slightly limited without oral and IV contrast. Appendix: Normal. Ascites: None. Adenopathy: None. Musculoskeletal: No suspicious bony lesion or fracture. Moderate lumbar spondylosis. IMPRESSION: No acute process is identified in the abdomen or pelvis. Bilateral renal cysts. Mild diverticulosis of the descending colon. Thoracolumbar spondylosis.
--- NOTE | 2018-11-30 14:07 | Emergency Department Report ---
ED Abdominal Pain HPI - General Chief Complaint: GI Bleed Stated Complaint: GI BLEED Time Seen by Provider: 11/30/18 12:46 Source: patient Mode of arrival: Wheelchair Limitations: No Limitations - History of Present Illness Initial Comments: 68-year-old male with with a extensive past medical history presents to the Hospital complaining of abdominal pain and black stool. Patient has had intermittent abdominal pain for last 2-3 months but becoming more constant and severe. Pain is currently analyzed, guarding, and rated 10/10 in intensity. Patient complains of nausea without vomiting. He complains of diarrhea every time he eats his stool is dark/black color. Patient was here in the ED for evaluation on November 26 and had a hemoglobin of 9.7 feet. He follow up with his primary care doctor within to the ER for admission. Patient denied he had labs and CT ordered prior to my evaluation. Patient has had previous cholecystectomy and has a history of a AAA. Patient had a colonoscopy with polypectomy 2 years ago and states he has never received an EGD. PMD: Dr. Magallon Severity scale (0 -10): 10 - Related Data Home Medications Medication Instructions Recorded Confirmed Last Taken Aspirin [Aspirin TAB] 81 mg PO QDAY 12/10/13 12/10/15 12/07/15 09:00 Sildenafil Citrate [Viagra] 50 mg PO QDAY PRN 01/11/15 12/10/15 12/08/15 09:00 oxyCODONE /ACETAMINOPHEN [Percocet 1 mg PO Q6H PRN 04/05/15 12/10/15 12/09/15 09:00 5/325 mg] ALPRAZolam [Xanax TAB] 1 mg PO BID PRN 08/02/15 12/10/15 12/08/15 21:00 Insulin Lispro [HumaLOG VIAL] 7 units SUB-Q TID 08/02/15 12/10/15 12/09/15 12:00 Potassium Chloride [K-Dur] 20 meq PO BID 08/02/15 12/10/15 12/09/15 09:00 Previous Rx's Medication Instructions Recorded Last Taken Type Antacid [Alum-Mag Hydrox-Simeth 30 ml PO Q4H PRN oral.liqd 01/22/15 12/09/15 09:00 Rx [id number]/5Ml] Furosemide [Lasix] 40 mg PO DAILY #30 tablet 01/22/15 12/09/15 09:00 Rx Levothyroxine [Synthroid] 100 mcg PO QAM #30 tablet 01/22/15 12/09/15 06:00 Rx Modafinil [Provigil] 200 mg PO QDAY #30 tablet 01/22/15 12/09/15 09:00 Rx Niacin/Simvastatin [Simcor 1,000 mg PO QHS #30 tbmp.24hr 01/22/15 12/09/15 09:00 Rx 1,000-20 mg] Ranolazine ER [Ranexa ER] 500 mg PO BID #60 tablet 01/22/15 12/09/15 09:00 Rx Simvastatin (Nf) [Zocor TAB] 20 mg PO QHS #30 tablet 01/22/15 12/09/15 22:00 Rx Zolpidem [Ambien] 10 mg PO QHS PRN tablet 01/22/15 12/09/15 22:00 Rx metOLazone [Zaroxolyn] 2.5 mg PO QDAY #30 tablet 01/22/15 12/09/15 09:00 Rx Arformoterol Nebu [Brovana Nebu] 15 mcg IH Q12HRT #1 ml 04/07/15 12/09/15 09:00 Rx DULoxetine [Cymbalta] 60 mg PO QDAY #30 capsule 04/07/15 12/09/15 09:[address] [Depakote Dr] 500 mg PO TID #90 tablet 04/07/15 12/09/15 09:00 Rx HYDROcodone/APAP 10-325 [[place] 1 each PO Q6H PRN #60 tablet 04/07/15 12/07/15 09:00 Rx 10-325 mg TAB] Insulin Glargine [Lantus VIAL] 30 unit SUB-Q QHS #100 units 04/07/15 12/09/15 22:00 Rx Losartan [Cozaar] 12.5 mg PO QDAY #30 tablet 04/07/15 12/09/15 09:00 Rx Metoprolol [Lopressor TAB] 25 mg PO QDAY #30 tablet 04/07/15 12/09/15 09:00 Rx OLANzapine [Zyprexa] 20 mg PO QHS #30 tablet 04/07/15 12/10/15 Rx metFORMIN [Glucophage] 500 mg PO BID #60 tablet 04/07/15 12/10/15 05:30 Rx Acetaminophen/Codeine [Tylenol 1 tab PO Q6H PRN #12 tab 06/05/17 Unknown Rx /Codeine # 3 tab] Clindamycin [Clindamycin CAP] 300 mg PO Q8H #30 cap 06/05/17 Unknown Rx Naproxen 500 mg PO TID #15 tablet 11/05/17 Unknown Rx HYDROcodone/APAP 5-325 [[place] 1 each PO Q6HR PRN #10 tablet 03/10/18 Unknown Rx 5/325] Azithromycin [Zithromax Z-CIARA] 1 dose PO DAILY 5 Days tab 04/27/18 Unknown Rx Benzonatate [Tessalon Perles] 100 mg PO Q8HR #30 capsule 04/27/18 Unknown Rx Ondansetron [Zofran Odt] 4 mg PO Q8HR #6 tab.rapdis 11/26/18 Unknown Rx traMADol [Ultram 50 MG tab] 50 mg PO Q6HR PRN #10 tablet 11/26/18 Unknown Rx Allergies Allergy/AdvReac Type Severity Reaction Status Date / Time Penicillins Allergy Severe Swelling Verified 11/30/18 12:27 bismuth subsalicylate AdvReac Vomiting Verified 11/30/18 12:27 [From Pepto-Bismol] squash Allergy Hives Uncoded 11/30/15 14:39 ED Review of Systems ROS: Stated complaint: GI BLEED Other details as noted in HPI Comment: All other systems reviewed and negative ED Past Medical Hx - Past Medical History Previous Medical History?: Yes Hx Hypertension: Yes (X 15 YRS) Hx CVA: Yes (L sided deficits) Hx Heart Attack/AMI: Yes (X 2 2011,2012) Hx Congestive Heart Failure: Yes (2010) Hx Diabetes: Yes Hx Deep Vein Thrombosis: Yes (RT ARM) Hx Pulmonary Embolism: Yes (RT SIDE 2012) Hx GERD: Yes Hx Renal Disease: No Hx Sickle Cell Disease: No Hx Arthritis: Yes Hx Seizures: Yes (LAST ONE 1 1/2 YR AGO) Hx COPD: Yes (Home O2) Hx HIV: No Additional medical history: Uses a cane for knee replacement surgery on right knee 2013. States has slight left side weakness from previous stroke. - Surgical History Past Surgical History?: Yes Hx Coronary Stent: Yes Hx Open Heart Surgery: Yes (CORONARY STENT X1;AAA) Hx Cholecystectomy: Yes Additional Surgical History: bilateral knee replacement,left shoulder - Social History Smoking Status: Never Smoker Substance Use Type: Alcohol - Medications Home Medications: Home Medications Medication Instructions Recorded Confirmed Last Taken Type Aspirin [Aspirin TAB] 81 mg PO QDAY 12/10/13 12/10/15 12/07/15 09:00 History Sildenafil Citrate [Viagra] 50 mg PO QDAY PRN 01/11/15 12/10/15 12/08/15 09:00 History Antacid [Alum-Mag Hydrox-Simeth 30 ml PO Q4H PRN oral.liqd 01/22/15 12/10/15 12/09/15 09:00 Rx [id number]/5Ml] Furosemide [Lasix] 40 mg PO DAILY #30 tablet 01/22/15 12/10/15 12/09/15 09:00 Rx Levothyroxine [Synthroid] 100 mcg PO QAM #30 tablet 01/22/15 12/10/15 12/09/15 06:00 Rx Modafinil [Provigil] 200 mg PO QDAY #30 tablet 01/22/15 12/10/15 12/09/15 09:00 Rx Niacin/Simvastatin [Simcor 1,000 mg PO QHS #30 tbmp.24hr 01/22/15 12/10/15 12/09/15 09:00 Rx 1,000-20 mg] Ranolazine ER [Ranexa ER] 500 mg PO BID #60 tablet 01/22/15 12/10/15 12/09/15 09:00 Rx Simvastatin (Nf) [Zocor TAB] 20 mg PO QHS #30 tablet 01/22/15 12/10/15 12/09/15 22:00 Rx Zolpidem [Ambien] 10 mg PO QHS PRN tablet 01/22/15 12/10/15 12/09/15 22:00 Rx metOLazone [Zaroxolyn] 2.5 mg PO QDAY #30 tablet 01/22/15 12/10/15 12/09/15 09:00 Rx oxyCODONE /ACETAMINOPHEN [Percocet 1 mg PO Q6H PRN 04/05/15 12/10/15 12/09/15 09:00 History 5/325 mg] Arformoterol Nebu [Brovana Nebu] 15 mcg IH Q12HRT #1 ml 04/07/15 12/10/15 12/09/15 09:00 Rx DULoxetine [Cymbalta] 60 mg PO QDAY #30 capsule 04/07/15 12/10/15 12/09/15 09:00 Rx Divalproex [Good Ariza] 500 mg PO TID #90 tablet 04/07/15 12/10/15 12/09/15 09:00 Rx HYDROcodone/APAP 10-325 [[place] 1 each PO Q6H PRN #60 tablet 04/07/15 12/10/15 12/07/15 09:00 Rx 10-325 mg TAB] Insulin Glargine [Lantus VIAL] 30 unit SUB-Q QHS #100 units 04/07/15 12/10/15 12/09/15 22:00 Rx Losartan [Cozaar] 12.5 mg PO QDAY #30 tablet 04/07/15 12/10/15 12/09/15 09:00 Rx Metoprolol [Lopressor TAB] 25 mg PO QDAY #30 tablet 04/07/15 12/10/15 12/09/15 09:00 Rx OLANzapine [Zyprexa] 20 mg PO QHS #30 tablet 04/07/15 12/10/15 12/10/15 Rx metFORMIN [Glucophage] 500 mg PO BID #60 tablet 04/07/15 12/10/15 12/10/15 05:30 Rx ALPRAZolam [Xanax TAB] 1 mg PO BID PRN 08/02/15 12/10/15 12/08/15 21:00 History Insulin Lispro [HumaLOG VIAL] 7 units SUB-Q TID 08/02/15 12/10/15 12/09/15 12:00 History Potassium Chloride [K-Dur] 20 meq PO BID 08/02/15 12/10/15 12/09/15 09:00 History Acetaminophen/Codeine [Tylenol 1 tab PO Q6H PRN #12 tab 06/05/17 Unknown Rx /Codeine # 3 tab] Clindamycin [Clindamycin CAP] 300 mg PO Q8H #30 cap 06/05/17 Unknown Rx Naproxen 500 mg PO TID #15 tablet 11/05/17 Unknown Rx HYDROcodone/APAP 5-325 [[place] 1 each PO Q6HR PRN #10 tablet 03/10/18 Unknown Rx 5/325] Azithromycin [Zithromax Z-CIARA] 1 dose PO DAILY 5 Days tab 04/27/18 Unknown Rx Benzonatate [Tessalon Perles] 100 mg PO Q8HR #30 capsule 04/27/18 Unknown Rx Ondansetron [Zofran Odt] 4 mg PO Q8HR #6 tab.rapdis 11/26/18 Unknown Rx traMADol [Ultram 50 MG tab] 50 mg PO Q6HR PRN #10 tablet 11/26/18 Unknown Rx ED Physical Exam - General Limitations: No Limitations - Other Other exam information: General: No limitations, patient is alert in no acute distress Head exam: Atraumatic, normocephalic Eyes exam: Normal appearance, pupils equal reactive to light, extraocular movements intact ENT: Moist mucous membrane Neck exam: Normal inspection, full range of motion, no meningismus nontender Respiratory exam: Clear to auscultation bilateral, no wheezes, rales, crackles Cardiovascular: Normal rate and rhythm, normal heart sounds Abdomen: Soft, nondistended, generalized tenderness, with normal bowel sounds, no rebound, or guarding Extremity: Full range of motion normal inspection no deformity Back: Normal Inspection, full range of motion, no tenderness Neurologic: Alert, oriented x3, cranial nerves intact, no motor or sensory deficit Psychiatric: normal affect, normal mood Skin: Warm, dry, intact ED Course Vital Signs 11/30/18 11/30/18 11/30/18 12:13 13:30 13:45 Temperature 98.3 F Pulse Rate 87 80 84 Respiratory 18 19 16 Rate Blood Pressure 115/89 123/90 120/91 O2 Sat by Pulse 98 95 93 Oximetry 11/30/18 14:00 Temperature Pulse Rate 72 Respiratory 10 L Rate Blood Pressure 128/87 O2 Sat by Pulse 96 Oximetry ED Medical Decision Making - Lab Data Result diagrams: 11/30/18 12:38 11/30/18 12:38 Lab Results 11/30/18 11/30/18 11/30/18 Range/Units 12:38 12:38 12:38 WBC 6.4 (4.5-11.0) K/mm3 RBC 5.36 H (3.65-5.03) M/mm3 Hgb 11.8 (11.8-15.2) gm/dl Hct 37.5 (35.5-45.6) % MCV 70 L (84-94) fl MCH 22 L (28-32) pg MCHC 31 L (32-34) % RDW 18.1 H (13.2-15.2) % Plt Count 360 (140-440) K/mm3 Lymph % (Auto) 22.0 (13.4-35.0) % [place] % (Auto) 7.1 (0.0-7.3) % Eos % (Auto) 0.9 (0.0-4.3) % Baso % (Auto) 0.7 (0.0-1.8) % Lymph # 1.4 (1.2-5.4) K/mm3 [place] # 0.5 (0.0-0.8) K/mm3 Eos # 0.1 (0.0-0.4) K/mm3 Baso # 0.0 (0.0-0.1) K/mm3 Seg Neutrophils % 69.3 (40.0-70.0) % Seg Neutrophils # 4.5 (1.8-7.7) K/mm3 PT 13.7 (12.2-14.9) Sec. INR 1.01 (0.87-1.13) APTT 23.4 L (24.2-36.6) Sec. Sodium 133 L (137-145) mmol/L Potassium 4.4 (3.6-5.0) mmol/L Chloride 94.5 L (98-107) mmol/L Carbon Dioxide 24 (22-30) mmol/L Anion Gap 19 mmol/L BUN 27 H (9-20) mg/dL Creatinine 1.1 (0.8-1.5) mg/dL Estimated GFR > 60 ml/min BUN/Creatinine Ratio 25 % Glucose 189 H (75-100) mg/dL Calcium 9.5 (8.4-10.2) mg/dL Total Bilirubin 0.80 (0.1-1.2) mg/dL AST 19 (5-40) units/L ALT < 5 L (7-56) units/L Alkaline Phosphatase 59 (35-129) units/L Total Protein 7.7 (6.3-8.2) g/dL Albumin 4.7 (3.9-5) g/dL Albumin/Globulin Ratio 1.6 % Lipase 69 H (13-60) units/L - EKG Data -: EKG Interpreted by [place] EKG shows normal: sinus rhythm, axis (qrs -62), QRS complexes (qrsd 96 ), ST-T waves (no stemi/t inv) Rate: normal (83) - EKG Data When compared to previous EKG there are: no significant change - Radiology Data Radiology results: report reviewed CT ABDOMEN PELVIS WITHOUT CONTRAST: HISTORY: Epigastric abdominal pain, GI bleeding. COMPARISON: none. TECHNIQUE: Helical CT in 1.25mm intervals without IV contrast. Sagittal and coronal reconstructions. FINDINGS: Lung bases: Normal. Liver: Normal. Biliary system: Cholecystectomy. No biliary dilatation. Pancreas: Normal. Spleen: Normal. Kidneys/ureters/bladder: Multiple bilateral renal cysts are identified. The largest cyst measures 5.5 cm at the superior pole of the left kidney. No evidence for nephrolithiasis or hydronephrosis. The ureters and bladder are unremarkable. Radiotherapy beads are noted in the prostate bed. Adrenal glands: Normal. Aorta: Normal. Intestines: There are a few scattered diverticula in the descending colon. No evidence for GI obstruction, obvious mass or inflammation. Please note this exam is slightly limited without oral and IV contrast. Appendix: Normal. Ascites: None. Adenopathy: None. Musculoskeletal: No suspicious bony lesion or fracture. Moderate lumbar spondylosis. IMPRESSION: No acute process is identified in the abdomen or pelvis. Bilateral renal cysts. Mild diverticulosis of the descending colon. Thoracolumbar spondylosis. - Medical Decision Making Patient's hemoglobin has improved compared to previous value. CT without acute findings. Patient will be admitted to Dr. Magallon service for further GI evaluation as per his recommendation. Patient did receive morphine and Zofran for pain in the ED. - Differential Diagnosis AAA, diverticulitis, colitis, UTI Critical Care Time: No Critical care attestation.: If time is entered above; I have spent that time in minutes in the direct care of this critically ill patient, excluding procedure time. ED Disposition Clinical Impression: Abdominal pain, Diabetes, Diarrhea Disposition: - OP ADMIT IP TO THIS HOSP Is pt being admited?: Yes Condition: Stable Referrals: DAVID PEOPLES MD [Primary Care Provider] - 3-5 Days Time of Disposition: 14:07 (Dr Magallon)
[2018-11-30] MEDS ORDERED: NACL 0.9% 1000 ML 1,000 ML IV ONE (14:31)
--- NOTE | 2018-11-30 14:47 | Gastroenterology Consultation ---
<BETO KING - Last Filed: 11/30/18 15:15> History of Present Illness - Reason for Consult Consult date: 11/30/18 GI bleed Requesting physician: JAY BOUCHER - History of Present Illness Patient is a 68 y/o male with PMH of CHF, DM, HTN, CVA, CAD ([place] x 2; 2012& 2013; coronary stent x 1), DVT (rt arm), A-fib, GERD, PE, arthritis, seizures, and COPD who presented to ED with c/o generalized abd pain and black stool to which GI has been consulted. Abd CT upon admission, showed no acute process (renal cysts, diverticulosis w/o evidence of diverticulitis, and thoracolumbar spondylosis). This afternoon patient was sitting on stretcher w/o acute distress drinking liquid. He reports intermittent generalized abd pain for the last couple of months with sometimes pain being in epigastic area and other times pain being in lower abdomen on either side with also intermittent dark stools. No exacerbating or alleviating factors. Denies fever, CP, SOB, N/V, hematemesis, diarrhea, constipation, or hematochezia. Takes daily ASA at home (xarelto?). No prior EGD. Last colonoscopy 2 yrs ago with polyps removed per pt reports. Past History Past Medical History: other (as per HPI) Past Surgical History: cholecystectomy, Other (AAA, bilateral knee replacement) Social history: , other (alcohol). denies: smoking (former smoker) Medications and Allergies Allergies Allergy/AdvReac Type Severity Reaction Status Date / Time Penicillins Allergy Severe Swelling Verified 11/30/18 12:27 bismuth subsalicylate AdvReac Vomiting Verified 11/30/18 12:27 [From Pepto-Bismol] squash Allergy Hives Uncoded 11/30/15 14:39 Home Medications Medication Instructions Recorded Confirmed Last Taken Type Aspirin [Aspirin TAB] 81 mg PO QDAY 12/10/13 12/10/15 12/07/15 09:00 History Sildenafil Citrate [Viagra] 50 mg PO QDAY PRN 01/11/15 12/10/15 12/08/15 09:00 History Antacid [Alum-Mag Hydrox-Simeth 30 ml PO Q4H PRN oral.liqd 0312/10/15 12/09/15 09:00 Rx [id number]/5Ml] Furosemide [Lasix] 40 mg PO DAILY #30 tablet 01/22/15 12/10/15 12/09/15 09:00 Rx Levothyroxine [Synthroid] 100 mcg PO QAM #30 tablet 01/22/15 12/10/15 12/09/15 06:00 Rx Modafinil [Provigil] 200 mg PO QDAY #30 tablet 01/22/15 12/10/15 12/09/15 09:00 Rx Niacin/Simvastatin [Simcor 1,000 mg PO QHS #30 tbmp.24hr 01/22/15 12/10/15 12/09/15 09:00 Rx 1,000-20 mg] Ranolazine ER [Ranexa ER] 500 mg PO BID #60 tablet 01/22/15 12/10/15 12/09/15 09:00 Rx Simvastatin (Nf) [Zocor TAB] 20 mg PO QHS #30 tablet 01/22/15 12/10/15 12/09/15 22:00 Rx Zolpidem [Ambien] 10 mg PO QHS PRN tablet 01/22/15 12/10/15 12/09/15 22:00 Rx metOLazone [Zaroxolyn] 2.5 mg PO QDAY #30 tablet 01/22/15 12/10/15 12/09/15 09:00 Rx oxyCODONE /ACETAMINOPHEN [Percocet 1 mg PO Q6H PRN 04/05/15 12/10/15 12/09/15 09:00 History 5/325 mg] Arformoterol Nebu [Brovana Nebu] 15 mcg IH Q12HRT #1 ml 04/07/15 12/10/15 12/09/15 09:00 Rx DULoxetine [Cymbalta] 60 mg PO QDAY #30 capsule 04/07/15 12/10/15 12/09/15 09:[address] [Good Ariza] 500 mg PO TID #90 tablet 04/07/15 12/10/15 12/09/15 09:00 Rx HYDROcodone/APAP 10-325 [[place] 1 each PO Q6H PRN #60 tablet 04/07/15 12/10/15 12/07/15 09:00 Rx 10-325 mg TAB] Insulin Glargine [Lantus VIAL] 30 unit SUB-Q QHS #100 units 04/07/15 12/10/15 12/09/15 22:00 Rx Losartan [Cozaar] 12.5 mg PO QDAY #30 tablet 04/07/15 12/10/15 12/09/15 09:00 Rx Metoprolol [Lopressor TAB] 25 mg PO QDAY #30 tablet 04/07/15 12/10/15 12/09/15 09:00 Rx OLANzapine [Zyprexa] 20 mg PO QHS #30 tablet 04/07/15 12/10/15 12/10/15 Rx metFORMIN [Glucophage] 500 mg PO BID #60 tablet 04/07/15 12/10/15 12/10/15 05:30 Rx ALPRAZolam [Xanax TAB] 1 mg PO BID PRN 08/02/15 12/10/15 12/08/15 21:00 History Insulin Lispro [HumaLOG VIAL] 7 units SUB-Q TID 08/02/15 12/10/15 12/09/15 12:00 History Potassium Chloride [K-Dur] 20 meq PO BID 08/02/15 12/10/15 12/09/15 09:00 History Acetaminophen/Codeine [Tylenol 1 tab PO Q6H PRN #12 tab 06/05/17 Unknown Rx /Codeine # 3 tab] Clindamycin [Clindamycin CAP] 300 mg PO Q8H #30 cap 06/05/17 Unknown Rx Naproxen 500 mg PO TID #15 tablet 11/05/17 Unknown Rx HYDROcodone/APAP 5-325 [[place] 1 each PO Q6HR PRN #10 tablet 03/10/18 Unknown Rx 5/325] Azithromycin [Zithromax Z-CIARA] 1 dose PO DAILY 5 Days tab 04/27/18 Unknown Rx Benzonatate [Tessalon Perles] 100 mg PO Q8HR #30 capsule 04/27/18 Unknown Rx Ondansetron [Zofran Odt] 4 mg PO Q8HR #6 tab.rapdis 11/26/18 Unknown Rx traMADol [Ultram 50 MG tab] 50 mg PO Q6HR PRN #10 tablet 11/26/18 Unknown Rx Active Meds: Active Medications Dextrose/Sodium Chloride (D5/0.45ns) 1,000 mls @ 100 mls/hr IV DIRECT ALAN Sodium Chloride (Nacl 0.9% 1000 Ml) 1,000 mls @ 100 mls/hr IV DIRECT ONE Stop: 12/01/18 00:30 Insulin Human Regular (Humulin R) 0 units SUB-Q ACHS ALAN; Protocol medications reviewed/updated as required Review of Systems - Review of Systems All systems: negative Gastrointestinal: abdominal pain (generalized), other (dark stool) Exam - Constitutional Vital Signs: Temp Pulse Resp BP Pulse Ox 98.3 F 72 10 L 128/87 96 11/30/18 12:13 11/30/18 14:00 11/30/18 14:00 11/30/18 14:00 11/30/18 14:00 General appearance: no acute distress - EENT Eyes: PERRL, EOM intact ENT: hearing intact - Respiratory Respiratory: bilateral: diminished - Cardiovascular Rhythm: regular - Gastrointestinal General gastrointestinal: Present: soft, tender (slight generalized TTP), non- distended, normal bowel sounds Rectal Exam: stool brown (light brown stool noted on rectal-lunchroom mother present during exam (Rey RN)) - Neurologic Neurological: alert and oriented x3 - Labs CBC & Chem 7: 11/30/18 12:38 11/30/18 12:38 Lab Results: Laboratory Results - last 24 hr 11/30/18 11/30/18 11/30/18 12:38 12:38 12:38 WBC 6.4 RBC 5.36 H Hgb 11.8 Hct 37.5 MCV 70 L MCH 22 L MCHC 31 L RDW 18.1 H Plt Count 360 Lymph % (Auto) 22.0 [place] % (Auto) 7.1 Eos % (Auto) 0.9 Baso % (Auto) 0.7 Lymph # 1.4 [place] # 0.5 Eos # 0.1 Baso # 0.0 Seg Neutrophils % 69.3 Seg Neutrophils # 4.5 PT 13.7 INR 1.01 APTT 23.4 L Sodium 133 L Potassium 4.4 Chloride 94.5 L Carbon Dioxide 24 Anion Gap 19 BUN 27 H Creatinine 1.1 Estimated GFR > 60 BUN/Creatinine Ratio 25 Glucose 189 H Calcium 9.5 Total Bilirubin 0.80 AST 19 ALT < 5 L Alkaline Phosphatase 59 Total Protein 7.7 Albumin 4.7 Albumin/Globulin Ratio 1.6 Lipase 69 H Assessment and Plan 1.GI bleed? -INR 1.01 -H/H WNL (11.8/37.5)-improved compared to previous -continue to monitor H/H and transfuse as needed -patient reports intermittent dark stool x approximately 1 month-rectal exam revealed light brown stool (no hematemesis or hematochezia) -HD stable -abd CT w/o acute process -last colonoscopy approximately 2 years ago which showed polyps per pt report -etiology- no clinical evidence of significant GI bleeding -no plan for scope at this time, unless overt bleeding develops -start on daily PPI -continue supportive care -recommend f/u in clinic in ~2-3 weeks for further workup as an outpatient -will sign off, please call if needed <EVA ABAD - Last Filed: 11/30/18 15:17> Medications and Allergies Active Meds: Active Medications Dextrose/Sodium Chloride (D5/0.45ns) 1,000 mls @ 100 mls/hr IV DIRECT ALAN Sodium Chloride (Nacl 0.9% 1000 Ml) 1,000 mls @ 100 mls/hr IV DIRECT ONE Stop: 12/01/18 00:30 Last Admin: 11/30/18 15:01 Dose: 100 mls/hr Documented by: Insulin Human Regular (Humulin R) 0 units SUB-Q ACHS ALAN; Protocol Exam - Constitutional Vital Signs: Temp Pulse Resp BP Pulse Ox 98.3 F 72 10 L 128/87 96 11/30/18 12:13 11/30/18 14:00 11/30/18 14:00 11/30/18 14:00 11/30/18 14:00 - Labs CBC & Chem 7: 11/30/18 12:38 11/30/18 12:38 Lab Results: Laboratory Results - last 24 hr 11/30/18 11/30/18 11/30/18 12:38 12:38 12:38 WBC 6.4 RBC 5.36 H Hgb 11.8 Hct 37.5 MCV 70 L MCH 22 L MCHC 31 L RDW 18.1 H Plt Count 360 Lymph % (Auto) 22.0 [place] % (Auto) 7.1 Eos % (Auto) 0.9 Baso % (Auto) 0.7 Lymph # 1.4 [place] # 0.5 Eos # 0.1 Baso # 0.0 Seg Neutrophils % 69.3 Seg Neutrophils # 4.5 PT 13.7 INR 1.01 APTT 23.4 L Sodium 133 L Potassium 4.4 Chloride 94.5 L Carbon Dioxide 24 Anion Gap 19 BUN 27 H Creatinine 1.1 Estimated GFR > 60 BUN/Creatinine Ratio 25 Glucose 189 H Calcium 9.5 Total Bilirubin 0.80 AST 19 ALT < 5 L Alkaline Phosphatase 59 Total Protein 7.7 Albumin 4.7 Albumin/Globulin Ratio 1.6 Lipase 69 H Assessment and Plan Pt seen and examined. Agree with note above. no signs of bleeding at present time. manage conservatively from gi stand point. will sign off, please call as needed. f/u in gi clinic in 2-3 weeks
[2018-11-30 16:02] LABS: Chol/HDL Ratio 3.11 %
[2018-11-30] MEDS ORDERED: HumaLOG SUB-Q SCH (16:30)
[2018-11-30] MEDS ORDERED: MORPHINE IV PRN (16:46)
[2018-11-30] MEDS: HumuLIN R SUB-Q SCH ×2 (16:47→22:10)
[2018-11-30] MEDS ORDERED: MORPHINE ONE (16:54)
[2018-11-30 17:50] LABS: Hematocrit 36.5 % (35.5-45.6); Hemoglobin 11.1 gm/dl (11.8-15.2)
--- NOTE | 2018-11-30 20:55 | History and Physical Report ---
History of Present Illness Date of examination: 11/30/18 Date of admission: 11/30/18 14:05 Chief complaint: Abdominal pain with dark tarry stool - 2 months History of present illness: Patient is a 68-year-old gentleman was a history of diabetes mellitus, CHF, hypertension, A. fib, PE, GERD, [place] 2 in 2011 and 2012, COPD who presented to the emergency department initially on 11/26/2018 for abdomen pain and fatigue. Patient was evaluated and advised to follow-up with primary care physician as hemoglobin was 9.7 at the time and patient was hemodynamically stable. Patient presents to the office today complaining intermittent dark tarry stool for past 2 - 3 months.patient was in my office today accompanied office complains of progressive weakness. Denies any hematemesis, melena, petechia or subcutaneous hemorrhage. Patient had colonoscopy 2 years ago with polypectomy. Has not had an EGD. Denies any chest pain or shortness of breath. No PND. No fever or chills. Patient is Jehovah witness and does not want any blood transfusion. Admission was therefore requested for further evaluation of diffuse abdominal pain with dark tarry stool On admission hemoglobin was found to 11.8 with hematocrit 0.5. Glucose Was 189. Lipase Was 69. CT Abdomen and pelvis is pending Past History Past Medical History: CAD, COPD, diabetes, heart failure, hyperlipidemia, other (as per HPI) Past Surgical History: cholecystectomy, Other (AAA, bilateral knee replacement) Social history: , other (alcohol). denies: smoking (former smoker) Medications and Allergies Allergies Allergy/AdvReac Type Severity Reaction Status Date / Time Penicillins Allergy Severe Swelling Verified 11/30/18 12:27 bismuth subsalicylate AdvReac Vomiting Verified 11/30/18 12:27 [From Pepto-Bismol] squash Allergy Hives Uncoded 11/30/15 14:39 Home Medications Medication Instructions Recorded Confirmed Last Taken Type Furosemide [Lasix] 40 mg PO DAILY #30 tablet 01/22/15 11/30/18 12/09/15 09:00 Rx Modafinil [Provigil] 200 mg PO QDAY #30 tablet 01/22/15 11/30/18 12/09/15 09:00 Rx DULoxetine [Cymbalta] 60 mg PO QDAY #30 capsule 04/07/15 11/30/18 12/09/15 09:00 Rx Insulin Glargine [Lantus VIAL] 30 unit SUB-Q QHS #100 units 04/07/15 11/30/18 12/09/15 22:00 Rx metFORMIN [Glucophage] 500 mg PO BID #60 tablet 04/07/15 11/30/18 12/10/15 05:30 Rx Insulin Lispro [HumaLOG VIAL] 7 units SUB-Q TID 08/02/15 11/30/18 12/09/15 12:00 History Azithromycin [Zithromax Z-CIARA] 1 dose PO DAILY 5 Days tab 04/27/18 11/30/18 Unknown Rx Ondansetron [Zofran Odt] 4 mg PO Q8HR #6 tab.rapdis 11/26/18 11/30/18 Unknown Rx traMADol [Ultram 50 MG tab] 50 mg PO Q6HR PRN #10 tablet 11/26/18 11/30/18 Unknown Rx Carisoprodol [Soma] 350 mg PO QID 11/30/18 11/30/18 Unknown History Gabapentin [Neurontin] 100 mg PO Q8HR 11/30/18 11/30/18 Unknown History Mirtazapine 45 mg PO QHS 11/30/18 11/30/18 Unknown History Omeprazole 40 mg PO BID 11/30/18 11/30/18 Unknown History QUEtiapine [SEROquel] 200 mg PO BID 11/30/18 11/30/18 Unknown History Rosuvastatin (Nf) [Crestor] 20 mg PO QHS 11/30/18 11/30/18 Unknown History Trazodone HCl 150 mg PO QHS 11/30/18 11/30/18 Unknown History diazePAM [Diazepam] 2 mg PO QHS 11/30/18 11/30/18 Unknown History tiZANidine [Zanaflex] 4 mg PO QID 11/30/18 11/30/18 Unknown History Active Meds: Active Medications Dextrose/Sodium Chloride (D5/0.45ns) 1,000 mls @ 100 mls/hr IV DIRECT ALAN Sodium Chloride (Nacl 0.9% 1000 Ml) 1,000 mls @ 100 mls/hr IV DIRECT ONE Stop: 12/01/18 00:30 Last Admin: 11/30/18 15:01 Dose: 100 mls/hr Documented by: Insulin Human Regular (Humulin R) 0 units SUB-Q ACHS ALAN; Protocol Last Admin: 11/30/18 16:47 Dose: Not Given Documented by: Morphine Sulfate (Morphine) 2 mg IV Q4H PRN PRN Reason: Pain, Moderate (4-6) Last Admin: 11/30/18 16:54 Dose: 2 mg Documented by: Review of systems Constitutional: Well Nouridhed and Well developed. Head: NC/ AT Eyes: Denies any visual impairments. No discharge from the eyes Nose: Denies any rhinorrhea or epistaxis Throats: Denies any post nasal drainage. Ears: Denies any hearing deficits Cardiovascular system: Denies any chest pain, shortness of breath, orthopnea, paroxysmal nocturnal dyspnea, or palpitation. Respiratory system: Denies any cough, difficulty breathing, wheezing, pleuritic chest pain, Gastrointestinal system: Has abdominal pain, no nausea vomiting, hematemesis or melena. Neurological system: Denies any headache, slurred speech, facial droop, lateralizing weakness Genitalia system: Denies any dysuria, urinary frequency or urgency, urethral discharge Skin: No rashes, hyperpigmented spots. Hematological: Denies any cervical tenderness hemorrhages or petechia. Immunological: Denies any multiple septic spots, Lymphatic: Denies any generalized lymphadenopathy. Endocrine: Denies any polyuria, polydipsia, polyphagia. No heat or cold intolerance. Musculoskeletal system: No joint pain or swelling. Psych: No visual, tactile, auditory or hallucination Exam - Physical Exam Narrative exam: Constitutional: Well-nourished well-developed. In no distress Head: Normocephalic atraumatic Eyes: Pupils are equal round and reactive to light Nose: No enlarged turbinates, no septal deviation. Mouth: Moist mucous membranes. Neck: Supple no thyromegaly. No bruit. No JVD Heart: Regular rate and rhythm, S1-S2 normal. No rubs murmurs or gallop Lungs: Clear to auscultation bilaterally. no rales or rhonchi Abdomen: Soft, epigastric tenderness. Bowel sound are present. Extremities: No edema, no cyanosis, no clubbing. Neuro: Alert oriented Oriented x3. No focal sensory or motor deficit. Skin: No rashes or hyperpigmented spots Musculoskeletal system: No joint pain or swelling Hematological: No petechia or subcutanous hemorrhages. Immunological: No multiple septic spots on the skin Lymphatic: No generalized lymphadenopathy Psychiatry: Euthymic. Calm. - Constitutional Vitals: Temp Pulse Resp BP Pulse Ox 98.1 F 66 16 133/86 94 11/30/18 19:28 11/30/18 19:28 11/30/18 19:28 11/30/18 19:28 11/30/18 19:28 Results - Labs CBC & Chem 7: 11/30/18 17:33 11/30/18 12:38 Labs: Abnormal lab results 11/30/18 11/30/18 11/30/18 Range/Units 12:38 12:38 12:38 RBC 5.36 H (3.65-5.03) M/mm3 Hgb (11.8-15.2) gm/dl MCV 70 L (84-94) fl MCH 22 L (28-32) pg MCHC 31 L (32-34) % RDW 18.1 H (13.2-15.2) % APTT 23.4 L (24.2-36.6) Sec. Sodium 133 L (137-145) mmol/L Chloride 94.5 L (98-107) mmol/L BUN 27 H (9-20) mg/dL Glucose 189 H (75-100) mg/dL POC Glucose (70-105) ALT < 5 L (7-56) units/L Lipase 69 H (13-60) units/L 11/30/18 11/30/18 Range/Units 16:43 17:33 RBC (3.65-5.03) M/mm3 Hgb 11.1 L (11.8-15.2) gm/dl MCV (84-94) fl MCH (28-32) pg MCHC (32-34) % RDW (13.2-15.2) % APTT (24.2-36.6) Sec. Sodium (137-145) mmol/L Chloride (98-107) mmol/L BUN (9-20) mg/dL Glucose (75-100) mg/dL POC Glucose 129 H (70-105) ALT (7-56) units/L Lipase (13-60) units/L Assessment and Plan - GI bleeding Hemodynamically stable Obtain Hemoccult Serial H&H Nothing by mouth, IV fluids, Last colonoscopy was 2 years ago. No neoplastic findings. Had polypectomy GI sap pp consultant. Input appreciated. Patient had a questionable history of xerotic intake. Sputum aspirin - Epigastric pain Likely from peptic ulcer disease IV Protonix - Hyponatremia Cautious repletion of sodium - Diabetes mellitus Obtain A1c Sliding scale insulin Consistent carbohydrate diet when patient commences or a feeding - History of CHF Was reminded to inputs and outputs Continue with appropriate home medications - History of A. fib EKG We still anticoagulation because of GI bleeding in the patient's who does not take blood transfusion as a Jehovah witness - DVT prophylaxis With SCDs only. We will anticoagulation because of GI bleeding Plan was discussed with the patient and . Nondistended. All questions answered. Spent 40 minutes during this admission process
[2018-11-30] MEDS: CYMBALTA PO SCH (21:48)
[2018-11-30] MEDS: GLUCOPHAGE PO SCH (21:49)
[2018-11-30] MEDS: NEURONTIN PO SCH (21:49)
[2018-11-30] MEDS: VALIUM PO SCH (21:49)
[2018-11-30] MEDS: LASIX PO SCH (21:49)
[2018-11-30] MEDS ORDERED: NON-FORMULARY (Rosuvastatin (Nf) 20 MG) PO SCH (22:00)
[2018-11-30] MEDS ORDERED: SODIUM CHLORIDE FLUSH SYRINGE 10 ML IV SCH (22:00)
[2018-11-30] MEDS: REMERON PO SCH (22:06)
[2018-11-30] MEDS: DESYREL PO SCH (22:06)
[2018-11-30] MEDS: LANTUS SUB-Q SCH (22:16)
[2018-11-30] MEDS: MORPHINE IV PRN (22:23)
[2018-11-30 22:33] LABS: Chol/HDL Ratio 3.5 %
[2018-11-30] MEDS: PROVIGIL PO SCH (23:29)
[2018-11-30] MEDS: D5/0.45NS 1,000 ML IV SCH (23:30)
[2018-12-01 00:01] LABS: Hemoglobin 11.1 gm/dl (11.8-15.2)
[2018-12-01 02:17] LABS: Basophils % (Auto) 0.7 % (0.0-1.8); Eosinophils # (Auto) 0.1 K/mm3 (0.0-0.4); Eosinophils % (Auto) 1.9 % (0.0-4.3); Hematocrit 36.1 % (35.5-45.6); Hemoglobin 11.1 gm/dl (11.8-15.2); Lymphocytes # (Auto) 1.7 K/mm3 (1.2-5.4); Lymphocytes % (Auto) 29.5 % (13.4-35.0); Mean Corpuscular HGB Conc 31 % (32-34); Mean Corpuscular Volume 71 fl (84-94); Monocytes # (Auto) 0.5 K/mm3 (0.0-0.8); Monocytes % (Auto) 9.1 % (0.0-7.3); Platelet Count 314 K/mm3 (140-440); Red Blood Count 5.12 M/mm3 (3.65-5.03)
[2018-12-01] MEDS: MORPHINE IV PRN ×5 (04:04→23:45)
[2018-12-01 05:31] LABS: INR 1.11 (0.87-1.13)
[2018-12-01] MEDS: NEURONTIN PO SCH ×3 (05:33→21:54)
[2018-12-01 06:50] LABS: Alanine Aminotransferase 14 units/L (7-56); Albumin 4.3 g/dL (3.9-5); BUN/Creatinine Ratio 24; Blood Urea Nitrogen 26 mg/dL (9-20); Calcium 9.3 mg/dL (8.4-10.2); Hemolysis Index 0
[2018-12-01] MEDS: D5/0.45NS 1,000 ML IV SCH ×2 (08:53→18:31)
[2018-12-01] MEDS: HumuLIN R SUB-Q SCH ×4 (08:55→21:55)
[2018-12-01] MEDS: LASIX PO SCH (10:27)
[2018-12-01] MEDS: GLUCOPHAGE PO SCH ×2 (10:36→21:54)
[2018-12-01] MEDS: CYMBALTA PO SCH (10:37)
[2018-12-01 10:41] LABS: Hematocrit 37.5 % (35.5-45.6); Hemoglobin 11.4 gm/dl (11.8-15.2)
[2018-12-01] MEDS: PROVIGIL PO SCH (12:33)
--- NOTE | 2018-12-01 15:23 | Progress Note ---
Assessment and Plan - Patient Problems (1) Abdominal pain Current Visit: Yes Status: Acute Qualifiers: Abdominal location: lower abdomen, unspecified Qualified Code(s): R10.30 - Lower abdominal pain, unspecified Plan to address problem: We'll order an ultrasound of the abdomen to evaluate ongoing abdominal discomfort. (2) Diarrhea Current Visit: Yes Status: Acute Plan to address problem: We will send stool samples for stool studies, start on anti diarrhea medication (3) Diabetes Current Visit: Yes Status: Chronic Qualifiers: Diabetes mellitus complication status: without complication (4) Acute renal failure Current Visit: No Status: Acute (5) Anemia Current Visit: No Status: Acute Qualifiers: Anemia type: unspecified type Qualified Code(s): D64.9 - Anemia, unspecified Plan to address problem: Hemoglobin noted to be stable we will continue to monitor Subjective Date of service: 12/01/18 Interval history: Covering Dr Magallon Patient seen and examined chart reviewed , patient complained of lower abdominal pain no nausea or vomiting, appetite is poor denied chest pain or shortness of breath no fever reported . Objective - Constitutional Vitals: Vital Signs - 12hr 12/01/18 12/01/18 12/01/18 04:48 07:48 08:00 Temperature 98.0 F 98.2 F Pulse Rate 114 H 87 87 Respiratory 17 20 Rate Blood Pressure 97/62 91/65 Blood Pressure [Right] O2 Sat by Pulse 88 91 Oximetry 12/01/18 12/01/18 09:58 10:00 Temperature Pulse Rate 76 Respiratory 18 Rate Blood Pressure Blood Pressure 106/73 [Right] O2 Sat by Pulse Oximetry General appearance: Present: no acute distress - EENT Eyes: PERRL ENT: hearing intact, clear oral mucosa - Neck Neck: normal ROM - Respiratory Respiratory effort: normal Respiratory: bilateral: CTA - Cardiovascular Rhythm: regular Heart Sounds: Present: S1 & S2 Extremities: no ischemia, pulses symmetrical - Gastrointestinal General gastrointestinal: Present: soft, tender, normal bowel sounds Localized gastrointestinal: tender: suprapubic, guarding: suprapubic Rectal Exam: deferred - Integumentary Integumentary: warm, dry - Musculoskeletal Musculoskeletal: strength equal bilaterally - Neurologic Neurologic: CNII-XII intact - Psychiatric Psychiatric: appropriate mood/affect - Labs CBC & Chem 7: 12/02/18 05:16 11/30/18 12:38 Labs: Abnormal lab results 11/30/18 11/30/18 11/30/18 Range/Units 16:43 17:33 21:13 RBC (3.65-5.03) M/mm3 Hgb 11.1 L (11.8-15.2) gm/dl MCV (84-94) fl MCH (28-32) pg MCHC (32-34) % RDW (13.2-15.2) % [place] % (Auto) (0.0-7.3) % POC Glucose 129 H 118 H (70-105) Phosphorus (2.5-4.5) mg/dL Magnesium (1.7-2.3) mg/dL Triglycerides (2-149) mg/dL HDL Cholesterol (40-59) mg/dL TSH (0.270-4.200) mlU/mL 11/30/18 11/30/18 12/01/18 Range/Units 21:21 21:21 01:50 RBC 5.12 H (3.65-5.03) M/mm3 Hgb 11.1 L (11.8-15.2) gm/dl MCV 71 L (84-94) fl MCH 22 L (28-32) pg MCHC 31 L (32-34) % RDW 18.0 H (13.2-15.2) % [place] % (Auto) 9.1 H (0.0-7.3) % POC Glucose (70-105) Phosphorus (2.5-4.5) mg/dL Magnesium (1.7-2.3) mg/dL Triglycerides 151 H (2-149) mg/dL HDL Cholesterol 36 L (40-59) mg/dL TSH 6.410 H (0.270-4.200) mlU/mL 12/01/18 12/01/18 12/01/18 Range/Units 04:34 05:49 09:46 RBC (3.65-5.03) M/mm3 Hgb 11.4 L (11.8-15.2) gm/dl MCV (84-94) fl MCH (28-32) pg MCHC (32-34) % RDW (13.2-15.2) % [place] % (Auto) (0.0-7.3) % POC Glucose 169 H (70-105) Phosphorus 4.80 H (2.5-4.5) mg/dL Magnesium 1.40 L (1.7-2.3) mg/dL Triglycerides (2-149) mg/dL HDL Cholesterol (40-59) mg/dL TSH (0.270-4.200) mlU/mL 12/01/18 Range/Units 11:20 RBC (3.65-5.03) M/mm3 Hgb (11.8-15.2) gm/dl MCV (84-94) fl MCH (28-32) pg MCHC (32-34) % RDW (13.2-15.2) % [place] % (Auto) (0.0-7.3) % POC Glucose 185 H (70-105) Phosphorus (2.5-4.5) mg/dL Magnesium (1.7-2.3) mg/dL Triglycerides (2-149) mg/dL HDL Cholesterol (40-59) mg/dL TSH (0.270-4.200) mlU/mL
[2018-12-01] MEDS: VALIUM PO SCH (21:52)
[2018-12-01] MEDS: REMERON PO SCH (21:52)
[2018-12-01] MEDS: DESYREL PO SCH (21:54)
[2018-12-01] MEDS: LANTUS SUB-Q SCH (21:55)
[2018-12-02] MEDS: D5/0.45NS 1,000 ML IV SCH ×2 (04:52→14:37)
[2018-12-02] MEDS: MORPHINE IV PRN ×5 (04:57→22:38)
[2018-12-02 06:04] LABS: Basophils % (Auto) 0.7 % (0.0-1.8); Eosinophils # (Auto) 0.1 K/mm3 (0.0-0.4); Eosinophils % (Auto) 3.1 % (0.0-4.3); Hematocrit 34.4 % (35.5-45.6); Hemoglobin 10.6 gm/dl (11.8-15.2); Lymphocytes # (Auto) 1.2 K/mm3 (1.2-5.4); Lymphocytes % (Auto) 32.9 % (13.4-35.0); Mean Corpuscular HGB Conc 31 % (32-34); Mean Corpuscular Volume 70 fl (84-94); Monocytes # (Auto) 0.4 K/mm3 (0.0-0.8); Monocytes % (Auto) 11.5 % (0.0-7.3); Platelet Count 284 K/mm3 (140-440); Red Cell Distribution Width 17.8 % (13.2-15.2)
[2018-12-02] MEDS: NEURONTIN PO SCH ×3 (06:13→22:29)
[2018-12-02] MEDS: HumuLIN R SUB-Q SCH ×4 (07:49→22:30)
[2018-12-02 08:07] LABS: Alanine Aminotransferase 18 units/L (7-56); Albumin 3.9 g/dL (3.9-5); BUN/Creatinine Ratio 19; Blood Urea Nitrogen 21 mg/dL (9-20); Calcium 8.6 mg/dL (8.4-10.2); Hemolysis Index 17
[2018-12-02] MEDS: LASIX PO SCH (09:46)
[2018-12-02] MEDS: CYMBALTA PO SCH (09:46)
[2018-12-02] MEDS: GLUCOPHAGE PO SCH ×3 (09:46→22:30)
[2018-12-02] MEDS: PROVIGIL PO SCH (12:05)
--- NOTE | 2018-12-02 13:35 | Progress Note ---
Assessment and Plan - Patient Problems (1) Abdominal pain Current Visit: Yes Status: Acute Qualifiers: Abdominal location: lower abdomen, unspecified Qualified Code(s): R10.30 - Lower abdominal pain, unspecified Plan to address problem: We'll order an ultrasound of the abdomen to evaluate ongoing abdominal discomfort. (2) Diarrhea Current Visit: Yes Status: Acute Plan to address problem: We will send stool samples for stool studies, start on anti diarrhea medication (3) Diabetes Current Visit: Yes Status: Chronic Qualifiers: Diabetes mellitus complication status: without complication (4) Acute renal failure Current Visit: No Status: Acute (5) Anemia Current Visit: No Status: Acute Qualifiers: Anemia type: unspecified type Qualified Code(s): D64.9 - Anemia, unspecified Plan to address problem: Hemoglobin noted to be stable we will continue to monitor Subjective Date of service: 12/02/18 Interval history: Patient complaint abdominal pain as well as diarrhea, had 2 loose bowel movements this morning, denied any nausea vomiting and no fever reported. Abdominal pain is mostly in the suprapubic area denied any dysuria, urinary frequency Objective - Constitutional Vitals: Vital Signs - 12hr 12/02/18 12/02/18 12/02/18 05:05 05:12 08:04 Temperature 98.6 F 98.0 F Pulse Rate 82 85 75 Pulse Rate [ From Monitor] Respiratory 17 20 Rate Blood Pressure 114/74 112/79 O2 Sat by Pulse 94 95 Oximetry 12/02/18 10:00 Temperature Pulse Rate Pulse Rate [ 75 From Monitor] Respiratory 20 Rate Blood Pressure O2 Sat by Pulse 95 Oximetry General appearance: Present: no acute distress - EENT Eyes: PERRL, EOM intact ENT: clear oral mucosa - Neck Neck: supple, normal ROM - Respiratory Respiratory effort: normal Respiratory: bilateral: CTA - Cardiovascular Rhythm: regular Heart Sounds: Present: S1 & S2 Extremities: no ischemia, pulses intact, pulses symmetrical - Gastrointestinal General gastrointestinal: Present: soft, tender Localized gastrointestinal: tender: suprapubic Rectal Exam: deferred - Genitourinary Male genitourinary: deferred - Integumentary Integumentary: clear, warm - Musculoskeletal Musculoskeletal: strength equal bilaterally - Neurologic Neurologic: CNII-XII intact - Psychiatric Psychiatric: appropriate mood/affect - Labs CBC & Chem 7: 12/02/18 05:16 11/30/18 12:38 Labs: Abnormal lab results 12/01/18 12/01/18 12/02/18 Range/Units 16:06 20:49 05:16 WBC 3.6 L (4.5-11.0) K/mm3 Hgb 10.6 L (11.8-15.2) gm/dl Hct 34.4 L (35.5-45.6) % MCV 70 L (84-94) fl MCH 22 L (28-32) pg MCHC 31 L (32-34) % RDW 17.8 H (13.2-15.2) % [place] % (Auto) 11.5 H (0.0-7.3) % POC Glucose 179 H 163 H (70-105) 12/02/18 12/02/18 Range/Units 06:19 11:39 WBC (4.5-11.0) K/mm3 Hgb (11.8-15.2) gm/dl Hct (35.5-45.6) % MCV (84-94) fl MCH (28-32) pg MCHC (32-34) % RDW (13.2-15.2) % [place] % (Auto) (0.0-7.3) % POC Glucose 182 H 273 H (70-105)
[2018-12-02 17:54] LABS: Bilirubin,Urine NEG (Negative); Blood,Urine NEG (Negative); Color,Urine Straw (Yellow); Protein,Urine <15 mg/dL mg/dL (Negative); Urobilinogen,Urine < 2.0 mg/dL (<2.0); WBC,Urine < 1.0 /HPF (0.0-6.0)
[2018-12-02] MEDS: LANTUS SUB-Q SCH (22:29)
[2018-12-02] MEDS: VALIUM PO SCH (22:29)
[2018-12-02] MEDS: REMERON PO SCH (22:29)
[2018-12-02] MEDS: DESYREL PO SCH (22:30)
[2018-12-03] MEDS: MORPHINE IV PRN ×5 (01:38→20:11)
[2018-12-03] MEDS: D5/0.45NS 1,000 ML IV SCH ×2 (01:39→15:14)
[2018-12-03] MEDS: NEURONTIN PO SCH ×3 (06:03→21:45)
[2018-12-03 07:19] LABS: Basophils % (Auto) 1.1 % (0.0-1.8); Eosinophils # (Auto) 0.1 K/mm3 (0.0-0.4); Eosinophils % (Auto) 4.1 % (0.0-4.3); Hematocrit 32.2 % (35.5-45.6); Lymphocytes # (Auto) 1.3 K/mm3 (1.2-5.4); Lymphocytes % (Auto) 38.3 % (13.4-35.0); Mean Corpuscular HGB Conc 31 % (32-34); Mean Corpuscular Volume 71 fl (84-94); Monocytes # (Auto) 0.4 K/mm3 (0.0-0.8); Monocytes % (Auto) 11.9 % (0.0-7.3); Platelet Count 290 K/mm3 (140-440); Red Blood Count 4.54 M/mm3 (3.65-5.03); Red Cell Distribution Width 17.6 % (13.2-15.2)
[2018-12-03 07:24] LABS: Alanine Aminotransferase 21 units/L (7-56); Albumin 3.9 g/dL (3.9-5); BUN/Creatinine Ratio 11; Blood Urea Nitrogen 11 mg/dL (9-20); Calcium 8.7 mg/dL (8.4-10.2); Hemolysis Index 4
[2018-12-03] MEDS: HumuLIN R SUB-Q SCH ×4 (07:30→21:54)
--- NOTE | 2018-12-03 10:10 | Progress Note ---
Assessment and Plan - GI bleeding - resolved Hemodynamically stable Obtain Hemoccult Nothing by mouth, IV fluids, Last colonoscopy was 2 years ago. No neoplastic findings. Had polypectomy GI crm consultant. Input appreciated. Patient had a questionable history of being Xeralto but stopped now on Sputum aspirin - Epigastric pain Likely from peptic ulcer disease IV Protonix - Hyponatremia Cautious repletion of sodium b/c h/o CHF - Diabetes mellitus Obtain A1c Sliding scale insulin Consistent carbohydrate diet when patient commences or a feeding - History of CHF strict inputs and outputs Continue with appropriate home medications - History of A. fib EKG showed no Afib Stopped all antiplatelet and anticoagulation because of GI bleeding in the pat yong's who does not take blood transfusion as a Jehovah witness - DVT prophylaxis With SCDs only. We will anticoagulation because of GI bleeding Plan was discussed with the patient and . Expressed understanding and questions answered. Spent 25 min Subjective Date of service: 12/03/18 Principal diagnosis: GI bleeding, Epigastic pain, CHF Interval history: no new complaint Objective - Exam Narrative Exam: Constitutional: Well-nourished well-developed. In no distress Head: Normocephalic atraumatic Eyes: Pupils are equal round and reactive to light Nose: No enlarged turbinates, no septal deviation. Mouth: Moist mucous membranes. Neck: Supple no thyromegaly. No bruit. No JVD Heart: Regular rate and rhythm, S1-S2 normal. No rubs murmurs or gallop Lungs: Clear to auscultation bilaterally. no rales or rhonchi Abdomen: Soft, epigastric tenderness. Bowel sound are present. Extremities: No edema, no cyanosis, no clubbing. Neuro: Alert oriented Oriented x3. No focal sensory or motor deficit. Skin: No rashes or hyperpigmented spots Musculoskeletal system: No joint pain or swelling Hematological: No petechia or subcutanous hemorrhages. Immunological: No multiple septic spots on the skin Lymphatic: No generalized lymphadenopathy Psychiatry: Euthymic. Calm. - Constitutional Vitals: Vital Signs - 12hr 12/02/18 12/02/18 12/03/18 22:38 23:13 03:34 Temperature 97.4 F L Pulse Rate 75 Respiratory 20 18 20 Rate Blood Pressure 125/77 O2 Sat by Pulse 90 Oximetry 12/03/18 12/03/18 04:17 07:44 Temperature 97.9 F 97.9 F Pulse Rate 89 89 Respiratory 18 20 Rate Blood Pressure 98/69 138/77 O2 Sat by Pulse 89 95 Oximetry - Labs CBC & Chem 7: 12/03/18 06:26 11/30/18 12:38 Labs: Abnormal lab results 12/02/18 12/02/18 12/02/18 Range/Units 11:39 15:43 16:50 WBC (4.5-11.0) K/mm3 Hgb (11.8-15.2) gm/dl Hct (35.5-45.6) % MCV (84-94) fl MCH (28-32) pg MCHC (32-34) % RDW (13.2-15.2) % Lymph % (Auto) (13.4-35.0) % [place] % (Auto) (0.0-7.3) % Seg Neutrophils # (1.8-7.7) K/mm3 POC Glucose 273 H 316 H (70-105) Ur Specific [place] 1.001 L (1.003-1.030) 12/02/18 12/03/18 12/03/18 Range/Units 21:34 05:59 06:26 WBC 3.3 L (4.5-11.0) K/mm3 Hgb 10.0 L (11.8-15.2) gm/dl Hct 32.2 L (35.5-45.6) % MCV 71 L (84-94) fl MCH 22 L (28-32) pg MCHC 31 L (32-34) % RDW 17.6 H (13.2-15.2) % Lymph % (Auto) 38.3 H (13.4-35.0) % [place] % (Auto) 11.9 H (0.0-7.3) % Seg Neutrophils # 1.5 L (1.8-7.7) K/mm3 POC Glucose 205 H 186 H (70-105) Ur Specific [place] (1.003-1.030)
[2018-12-03] MEDS: CYMBALTA PO SCH (10:51)
[2018-12-03] MEDS: LASIX PO SCH (10:52)
[2018-12-03] MEDS: GLUCOPHAGE PO SCH ×2 (10:53→21:55)
--- NOTE | 2018-12-03 13:12 | Ultrasound Report ---
ULTRASOUND ABDOMEN INDICATION: Abdominal pain. COMPARISON: 11/30/2018 CT. FINDINGS: Abdominal sonography demonstrates diffuse hepatic echogenic coarsening/fatty infiltration with possible right hepatic lobe craniocaudal enlargement, estimated at 18.5 cm on the prior CT. No definite focal suspicious hepatic lesions or biliary dilatation. Gallbladder again surgically absent. CBD caliber at the merari hepatis 0.9 cm, image 26. Homogenous spleen, 13 cm in length. No ascites. Pancreas partly obscured due to bowel gas, though imaged portions grossly within normal limits. Unremarkable IVC. Nonaneurysmal abdominal aorta. No hydronephrosis. Right kidney estimated at 11.9 x 4 x 5.2 cm with cortical thickness of 1.4 cm. A 1.8 x 1.5 cm right upper pole cortical cyst noted, image 18. Left kidney is 13.1 x 6.6 x 7.1 cm with cortical thickness of 1.2 cm. Multiple left renal cysts noted, the largest 4.4 x 3.8 x 2.5 cm at the upper pole, image 37. CONCLUSION: Fatty, slightly enlarged liver, top normal spleen, bilateral renal cysts and cholecystectomy noted, as described. Please correlate. Thank you for the opportunity to participate in this patient's care.
--- NOTE | 2018-12-03 15:24 | Gastroenterology Progress Note ---
Addendum entered and electronically signed by ROMY TELLEZ MD 12/04/18 14:25: Plan: follow h/h, transfuse as needed - plan EGD in am - other rec as outlined below Original Note: Assessment and Plan 1.epigastric pain 2.GI bleed? -LFTs WNL -INR 1.11 -H/H 10.0/32.2-stable -continue to monitor H/H and transfuse as needed -abd CT w/o acute process -clinically, patient reports intermittent black stool x 1 month which has since resolved and epigastric pain with occasional nausea. No vomiting, hematemesis, or hematochezia. Tolerating clears. -currently HD stable- no active signs of bleeding -last colonoscopy 2 years ago which revealed polyps per pt report -etiology-possible ulcer vs other -will schedule for EGD tomorrow -NPO after MN -avoid NSAIDs -optimize glycemic control -continue PPI and supportive care -will follow Subjective Date of service: 12/03/18 Principal diagnosis: Epigastic pain Interval history: GI has been re-consulted on this patient for continued epigastric pain. This afternoon patient was sitting up in bed w/o acute distress. Reports continued constant epigastric pain. Exacerbated with PO intake. Admits to occasional nausea. No vomiting or active signs of bleeding. S/p cholecystectomy. Objective - Constitutional Vitals: Temp Pulse Resp BP Pulse Ox 97.9 F 83 18 126/79 95 12/03/18 10:48 12/03/18 10:48 12/03/18 10:48 12/03/18 10:48 12/03/18 10:48 General appearance: no acute distress - Respiratory Respiratory: bilateral: CTA (anterior) - Cardiovascular Rhythm: other (irregular) - Gastrointestinal General gastrointestinal: Present: soft, tender (slight generalized TTP), non- distended, normal bowel sounds - Neurologic Neurological: alert and oriented x3 - Labs CBC & Chem 7: 12/03/18 06:26 11/30/18 12:38 Labs: Laboratory Results - last 24 hr 12/02/18 12/02/18 12/02/18 15:02 15:43 16:50 WBC RBC Hgb Hct MCV MCH MCHC RDW Plt Count Lymph % (Auto) [place] % (Auto) Eos % (Auto) Baso % (Auto) Lymph # [place] # Eos # Baso # Seg Neutrophils % Seg Neutrophils # POC Glucose 316 H Amylase 65 Urine Color Straw Urine Turbidity Clear Urine pH 5.0 Ur Specific [place] 1.001 L Urine Protein <15 mg/dl Urine Glucose (UA) >=500 Urine Ketones Neg Urine Blood Neg Urine Nitrite Neg Urine Bilirubin Neg Urine Urobilinogen < 2.0 Ur Leukocyte Esterase Neg Urine WBC (Auto) < 1.0 Urine RBC (Auto) 1.0 U Epithel Cells (Auto) < 1.0 12/02/18 12/03/18 12/03/18 21:34 05:59 06:26 WBC 3.3 L RBC 4.54 Hgb 10.0 L Hct 32.2 L MCV 71 L MCH 22 L MCHC 31 L RDW 17.6 H Plt Count 290 Lymph % (Auto) 38.3 H [place] % (Auto) 11.9 H Eos % (Auto) 4.1 Baso % (Auto) 1.1 Lymph # 1.3 [place] # 0.4 Eos # 0.1 Baso # 0.0 Seg Neutrophils % 44.6 Seg Neutrophils # 1.5 L POC Glucose 205 H 186 H Amylase Urine Color Urine Turbidity Urine pH Ur Specific [place] Urine Protein Urine Glucose (UA) Urine Ketones Urine Blood Urine Nitrite Urine Bilirubin Urine Urobilinogen Ur Leukocyte Esterase Urine WBC (Auto) Urine RBC (Auto) U Epithel Cells (Auto) 12/03/18 10:50 WBC RBC Hgb Hct MCV MCH MCHC RDW Plt Count Lymph % (Auto) [place] % (Auto) Eos % (Auto) Baso % (Auto) Lymph # [place] # Eos # Baso # Seg Neutrophils % Seg Neutrophils # POC Glucose 202 H Amylase Urine Color Urine Turbidity Urine pH Ur Specific [place] Urine Protein Urine Glucose (UA) Urine Ketones Urine Blood Urine Nitrite Urine Bilirubin Urine Urobilinogen Ur Leukocyte Esterase Urine WBC (Auto) Urine RBC (Auto) U Epithel Cells (Auto)
[2018-12-03] MEDS: PROVIGIL PO SCH (18:46)
[2018-12-03] MEDS: VALIUM PO SCH (21:44)
[2018-12-03] MEDS: REMERON PO SCH (21:45)
[2018-12-03] MEDS: DESYREL PO SCH (21:45)
[2018-12-03] MEDS: LANTUS SUB-Q SCH (21:49)
[2018-12-04] MEDS: MORPHINE IV PRN ×4 (00:28→20:01)
[2018-12-04] MEDS: NEURONTIN PO SCH ×3 (06:09→22:41)
[2018-12-04 07:04] LABS: Basophils % (Auto) 0.8 % (0.0-1.8); Eosinophils # (Auto) 0.1 K/mm3 (0.0-0.4); Eosinophils % (Auto) 3.2 % (0.0-4.3); Hematocrit 32.5 % (35.5-45.6); Hemoglobin 9.9 gm/dl (11.8-15.2); Mean Corpuscular HGB Conc 30 % (32-34); Mean Corpuscular Volume 71 fl (84-94); Monocytes # (Auto) 0.4 K/mm3 (0.0-0.8); Platelet Count 276 K/mm3 (140-440); Red Blood Count 4.56 M/mm3 (3.65-5.03); Red Cell Distribution Width 17.8 % (13.2-15.2)
[2018-12-04 07:12] LABS: Alanine Aminotransferase 20 units/L (7-56); Albumin 3.9 g/dL (3.9-5); BUN/Creatinine Ratio 10; Blood Urea Nitrogen 10 mg/dL (9-20); Calcium 8.6 mg/dL (8.4-10.2); Hemolysis Index 0
[2018-12-04] MEDS: HumuLIN R SUB-Q SCH ×4 (09:24→22:48)
[2018-12-04] MEDS: CYMBALTA PO SCH (09:25)
[2018-12-04] MEDS: LASIX PO SCH (09:25)
[2018-12-04] MEDS: GLUCOPHAGE PO SCH (09:25)
[2018-12-04] MEDS: D5/0.45NS 1,000 ML IV SCH (09:30)
--- NOTE | 2018-12-04 10:31 | Progress Note ---
Assessment and Plan - Epigastric pain Likely from peptic ulcer disease IV Protonix Fro EGD today - GI bleeding - resolved Hemodynamically stable Obtain Hemoccult Nothing by mouth, IV fluids, Last colonoscopy was 2 years ago. No neoplastic findings. Had polypectomy GI testing consultant. Input appreciated. Patient had a questionable history of being Xeralto but stopped now on Sputum aspirin - Hyponatremia Cautious repletion of sodium b/c h/o CHF - Diabetes mellitus Obtain A1c Sliding scale insulin Consistent carbohydrate diet when patient commences or a feeding - History of CHF strict inputs and outputs Continue with appropriate home medications - History of A. fib EKG showed no Afib Stopped all antiplatelet and anticoagulation because of GI bleeding in the patient's who does not take blood transfusion as a Jehovah witness - DVT prophylaxis With SCDs only. We will anticoagulation because of GI bleeding Plan was discussed with the patient and . Expressed understanding and questions answered. Spent 25 min Subjective Date of service: 12/04/18 Principal diagnosis: GI bleeding, Epigastic pain, CHF Interval history: no new complaint. No melana or hematemesis Objective - Exam Narrative Exam: Constitutional: Well-nourished well-developed. In no distress Head: Normocephalic atraumatic Eyes: Pupils are equal round and reactive to light Nose: No enlarged turbinates, no septal deviation. Mouth: Moist mucous membranes. Neck: Supple no thyromegaly. No bruit. No JVD Heart: Regular rate and rhythm, S1-S2 normal. No rubs murmurs or gallop Lungs: Clear to auscultation bilaterally. no rales or rhonchi Abdomen: Soft, epigastric tenderness. Bowel sound are present. Extremities: No edema, no cyanosis, no clubbing. Neuro: Alert oriented Oriented x3. No focal sensory or motor deficit. Skin: No rashes or hyperpigmented spots Musculoskeletal system: No joint pain or swelling Hematological: No petechia or subcutanous hemorrhages. Immunological: No multiple septic spots on the skin Lymphatic: No generalized lymphadenopathy Psychiatry: Euthymic. Calm. - Constitutional Vitals: Vital Signs - 12hr 12/04/18 12/04/18 12/04/18 00:10 04:00 04:59 Temperature 97.5 F L 97.3 F L Pulse Rate 68 70 70 Respiratory 18 18 Rate Blood Pressure 138/77 120/73 O2 Sat by Pulse 92 96 Oximetry 12/04/18 12/04/18 08:43 08:45 Temperature 98.3 F Pulse Rate 85 Respiratory 18 Rate Blood Pressure 131/86 O2 Sat by Pulse 98 Oximetry - Labs CBC & Chem 7: 12/04/18 06:36 12/04/18 06:36 Labs: Abnormal lab results 12/03/18 12/03/18 12/03/18 Range/Units 10:50 15:52 21:30 WBC (4.5-11.0) K/mm3 Hgb (11.8-15.2) gm/dl Hct (35.5-45.6) % MCV (84-94) fl MCH (28-32) pg MCHC (32-34) % RDW (13.2-15.2) % [place] % (Auto) (0.0-7.3) % Lymph # (1.2-5.4) K/mm3 Carbon Dioxide (22-30) mmol/L Glucose (75-100) mg/dL POC Glucose 202 H 173 H 120 H (70-105) Total Protein (6.3-8.2) g/dL 12/04/18 12/04/18 12/04/18 Range/Units 05:34 06:36 06:36 WBC 3.9 L (4.5-11.0) K/mm3 Hgb 9.9 L (11.8-15.2) gm/dl Hct 32.5 L (35.5-45.6) % MCV 71 L (84-94) fl MCH 22 L (28-32) pg MCHC 30 L (32-34) % RDW 17.8 H (13.2-15.2) % [place] % (Auto) 10.0 H (0.0-7.3) % Lymph # 1.0 L (1.2-5.4) K/mm3 Carbon Dioxide 31 H (22-30) mmol/L Glucose 167 H (75-100) mg/dL POC Glucose 161 H (70-105) Total Protein 6.2 L (6.3-8.2) g/dL
[2018-12-04] MEDS ORDERED: PROVIGIL PO SCH (12:00)
[2018-12-04] MEDS ORDERED: WATER FOR IRRIG STERILE IR ONE (13:23)
[2018-12-04] MEDS ORDERED: WATER FOR IRRIG STERILE ONE (13:35)
[2018-12-04] MEDS: NACL 0.9% 1000 ML 1,000 ML IV SCH ×2 (13:43→20:08)
[2018-12-04] MEDS ORDERED: XYLOCAINE 2% INFILTRATI ONE ×2 (13:51)
[2018-12-04] MEDS ORDERED: DIPRIVAN 10 MG/ML IV ONE (13:51)
[2018-12-04] MEDS ORDERED: ZOFRAN ONE (13:51)
[2018-12-04] MEDS ORDERED: VERSED ONE (13:51)
--- NOTE | 2018-12-04 14:15 | Anesthesia Day of Surgery ---
Anesthesia Day of Surgery - Day of Surgery Patient Examined: Yes Patient H&P Reviewed: Yes Patient is NPO: Yes Beta Blockers: No
--- NOTE | 2018-12-04 14:16 | Anesthesia Consultation ---
Anesthesia Consult and Med Hx Date of service: 12/04/18 - Airway Anesthetic Teeth Evaluation: Dentures, Edentulous ROM Head & Neck: Adequate Mental/Hyoid Distance: Adequate Mallampati Class: Class III Intubation Access Assessment: Good - Pulmonary Exam CTA: Yes - Cardiac Exam Cardiac Exam: No Murmur - Pre-Operative Health Status ASA Pre-Surgery Classification: ASA3 Proposed Anesthetic Plan: MAC - Pulmonary Hx Smoking: Yes (4 1/2 PPD X 40YRS-STOPPED 1998) COPD: Yes (Home O2) Hx Sleep Apnea: Yes - Cardiovascular System Hx Hypertension: Yes (X 15 YRS) Hx Coronary Artery Disease: Yes Hx Heart Attack/AMI: Yes (X 2 2011,2013) Hx Angina: Yes Hx Percutaneous Transluminal Coronary Angioplasty (PTCA): No Hx Cardia Arrhythmia: Yes (patient had episode non-sustained SVT after last surgery) Hx Valvular Heart Disease: Yes Hx Heart Murmur: Yes Hx Peripheral Vascular Disease: Yes (NEUROPATHY KANDY LEGS) - Central Nervous System Hx Seizures: Yes (LAST ONE 1 1/2 YR AGO) 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
--- NOTE | 2018-12-04 14:29 | Post Operative Note ---
Pre-op diagnosis: epigastric pain Post-op diagnosis: same Findings: EGD: small hiatal hernia - irregular z-line 40 cm (bx's) - moderate antral gastritis (bx's) - negative other Procedure: EGD Anesthesia: MAC Surgeon: ROMY TELLEZ Estimated blood loss: none Pathology: list Specimen disposition: to lab Condition: stable Disposition: floor
[2018-12-04] MEDS: PROTONIX PO SCH (15:37)
--- NOTE | 2018-12-04 17:17 | Operative Report ---
PROCEDURE: EGD with cold biopsies. INDICATION: 1. Anemia. 2. Epigastric pain. MEDICATIONS: Propofol per DEMOGRAPHER. COMPLICATIONS: None. DESCRIPTION OF PROCEDURE: The patient brought to procedure suite. The patient had the procedure discussed with him at length. All risks, complications, and benefits discussed, which the patient signed for the procedure performed. The patient was placed in left lateral decubitus position. Mouth block was placed in the patient's oral cavity. After adequate sedation medication as above, endoscope was introduced into the mouth and brought to level of the second portion of duodenum. Retroflexion view performed. The patient's vital signs remained stable throughout the procedure. FINDINGS: Irregular Z line noted 40 cm from the gums, bubble from acid reflux. Biopsy taken and sent to pathology. Small hiatal hernia at GE junction. The esophagus otherwise appeared to be normal. There was mild antral gastritis with a few erosions noted. Biopsies were taken and sent to pathology. The remaining stomach otherwise appeared to be normal. The duodenum appeared to be normal. Retroflexion view performed in the stomach showed no other pathology other than noted above. The patient tolerated the procedure well. No complications during the procedure. IMPRESSION: 1. Hiatal hernia. 2. Irregular Z line, biopsies performed. 3. Otherwise, normal esophagus. 4. Gastritis with erosions. Biopsies performed. 5. Otherwise, normal stomach. 6. Normal duodenum. RECOMMENDATIONS: 1. Follow up biopsy results. 2. If stool for H. pylori positive, we will treat. 3. PPI daily. 4. If H and H stable in a.m., okay to discharge from GI standpoint. JOB# [id number] CAB/NTS
[2018-12-04] MEDS ORDERED: ZOFRAN IV PRN (18:35)
[2018-12-04] MEDS: DESYREL PO SCH (22:41)
[2018-12-04] MEDS: REMERON PO SCH (22:41)
[2018-12-04] MEDS: VALIUM PO SCH (22:41)
[2018-12-04] MEDS: LANTUS SUB-Q SCH (22:49)
[2018-12-05] MEDS: GLUCOPHAGE PO SCH ×2 (00:11→11:10)
[2018-12-05] MEDS: MORPHINE IV PRN ×2 (01:05→06:52)
[2018-12-05] MEDS: NEURONTIN PO SCH (05:49)
[2018-12-05 09:07] VITALS: BP 142/85
--- NOTE | 2018-12-05 10:27 | Discharge Summary ---
Providers - Providers Date of Admission: 11/30/18 14:05 Date of discharge: 12/05/18 Attending physician: JAY BOUCHER 11/30/18 14:28 Consult to Physician [CONS] Stat Comment: DEOLN Ugarte/ CASSANDRA GASTRO CONSULT @1607 Consulting Provider: EVA ABAD Physician Instructions: Reason For Exam: GI bleed Primary care physician: DAVID PEOPLES Hospitalization Reason for admission: GI bleeding, Abdominal pain Condition: Stable Pertinent studies: CT abdoman and pelvis done (under a different account number, ie the account number on direct admission from office which is different from the one he got in the ED) showed multiple diverticular in the descending colon. No masses or inflamation seen. Abdominal US was unremarkable Procedures: EGD 12/04/18 showed hiatal hernia, Abnormal Z-line, antral gastritis Hospital course: Patient is a 68-year-old gentleman was a history of diabetes mellitus, CHF, hypertension, A. fib, PE, GERD, AR 2 in 2011 and 2012, COPD who presented to the emergency department initially on 11/26/2018 for abdomen pain and fatigue. Patient was evaluated and advised to follow-up with primary care physician as hemoglobin was 9.7 at the time and patient was hemodynamically stable. Patient presents to the office today complaining intermittent dark tarry stool for past 2 - 3 months.patient was in my office today accompanied office complains of progressive weakness. Denies any hematemesis, melena, petechia or subcutaneous hemorrhage. Patient had colonoscopy 2 years ago with polypectomy. Has not had an EGD. Denies any chest pain or shortness of breath. No PND. No fever or chills. Patient is Jehovah witness and does not want any blood transfusion. Admission was therefore requested for further evaluation of diffuse abdominal pain with dark tarry stool. Pt had been off anticoagulation for Afib prior to admission because his rate has been controlled. and ws in NSR On admission hemoglobin was found to 11.8 with hematocrit 0.5. Glucose Was 189. Lipase Was 69. CT Abdomen and pelvis showed descending colon diverticular. No massed or inflammation seen. No active bleeding noted while in the hospital. Hgb was 11.1 on admission. GI consult was obtained as pt was still complaining of epigstric pain after they had signed off saying he had a recent Colonoscopy with no significant findings,. EGD showed hiatal hernia, antral gastritis and abnorma Z-line that was biopsied. ABdominal pain has resolved with no GI bleedign. Pt is therefore being dischrged today to f/u with PCP in 3-5 dasy and Gi in 7 day and Cardilogist in 10 days Disposition: DC-01 TO HOME OR SELFCARE Time spent for discharge: 42 mins - Discharge Diagnoses (1) GI bleeding Status: Acute (2) Anemia Status: Acute Qualifiers: Anemia type: unspecified type Qualified Code(s): D64.9 - Anemia, unspecified (3) Diabetes mellitus out of control Status: Acute (4) CAD (coronary artery disease) Status: Chronic (5) Diabetes mellitus type 2, uncontrolled Status: Chronic Core Measure Documentation - Palliative Care Palliative Care/ Comfort Measures: Not Applicable - Core Measures Any of the following diagnoses?: none Exam - Physical Exam Narrative exam: Constitutional: Well-nourished well-developed. In no distress Head: Normocephalic atraumatic Eyes: Pupils are equal round and reactive to light Nose: No enlarged turbinates, no septal deviation. Mouth: Moist mucous membranes. Neck: Supple no thyromegaly. No bruit. No JVD Heart: Regular rate and rhythm, S1-S2 normal. No rubs murmurs or gallop Lungs: Clear to auscultation bilaterally. no rales or rhonchi Abdomen: Soft, epigastric tenderness. Bowel sound are present. Extremities: No edema, no cyanosis, no clubbing. Neuro: Alert oriented Oriented x3. No focal sensory or motor deficit. Skin: No rashes or hyperpigmented spots Musculoskeletal system: No joint pain or swelling Hematological: No petechia or subcutanous hemorrhages. Immunological: No multiple septic spots on the skin Lymphatic: No generalized lymphadenopathy Psychiatry: Euthymic. Calm. - Constitutional Vitals: Temp Pulse Resp BP Pulse Ox 97.3 F L 72 20 142/85 99 12/05/18 09:07 12/05/18 09:06 12/05/18 09:06 12/05/18 09:06 12/05/18 09:06 Plan Activity: fall precautions Weight Bearing Status: Weight Bear as Tolerated Diet: diabetic Follow up with: JAY BOUCHER MD [Staff Physician] - 3 Days DAVID PEOPLES MD [Primary Care Provider] - 14 Days ROMY TELLEZ MD [Staff Physician] - 7 Days Prescriptions: diazePAM [Diazepam] 2 mg PO QHS #30 tablet DULoxetine [Cymbalta] 60 mg PO QDAY #30 capsule Gabapentin [Neurontin] 100 mg PO Q8HR #90 capsule Insulin Glargine [Lantus VIAL] 30 unit SUB-Q QHS #100 units metFORMIN [Glucophage] 500 mg PO BID #60 tablet Mirtazapine [Remeron] 45 mg PO QHS #30 tablet Omeprazole 40 mg PO BID #60 capsule. QUEtiapine [SEROquel] 200 mg PO BID #60 tablet Rosuvastatin (Nf) [Crestor] 20 mg PO QHS #30 tablet traMADol [Ultram 50 MG tab] 50 mg PO Q12HR PRN #10 tablet PRN Reason: Pain Trazodone HCl 150 mg PO QHS #30 tablet
[2018-12-05] MEDS: CYMBALTA PO SCH (11:10)
[2018-12-05] MEDS: LASIX PO SCH (11:11)
[2018-12-05] MEDS: PROTONIX PO SCH (11:11)
--- NOTE | 2018-12-05 14:28 | Gastroenterology Progress Note ---
Addendum entered and electronically signed by ROMY TELLEZ MD 12/05/18 14:41: - management as outlined - will sign off, call if needed Original Note: Assessment and Plan 1.epigastric pain 2.GI bleed? -H/H stable -continue to monitor H/H and transfuse as needed -abd CT w/o acute process -last colonoscopy 2 years ago which revealed polyps per pt report -s/p EGD that revealed hiatal hernia, irregular z-line, and gastritis with erosions -bx results pending-f/u in clinic -clinically, patient is stable with no active signs of bleeding. Reports some continued abd discomfort. Tolerating diet. -avoid NSAIDs -optimize glycemic control -continue PPI and supportive care -patient okay to be d/c per GI standpoint on PPI with f/u in clinic ~2 weeks -will sign off, please call if needed Subjective Date of service: 12/05/18 Principal diagnosis: GI bleeding, Epigastic pain Interval history: No acute distress. No active signs of bleeding. Objective - Constitutional Vitals: Temp Pulse Resp BP Pulse Ox 97.3 F L 72 20 142/85 99 12/05/18 09:07 12/05/18 09:06 12/05/18 09:06 12/05/18 09:06 12/05/18 09:06 General appearance: no acute distress - Respiratory Respiratory: bilateral: CTA - Cardiovascular Rhythm: regular Heart Sounds: Present: S1 & S2 - Gastrointestinal General gastrointestinal: Present: soft, non-tender, non-distended, normal bowel sounds - Neurologic Neurological: alert and oriented x3 - Labs CBC & Chem 7: 12/04/18 06:36 12/04/18 06:36 Labs: Laboratory Results - last 24 hr 12/04/18 12/04/18 12/05/18 18:40 21:16 05:42 POC Glucose 181 H 222 H 249 H
== END 2018-12-05 14:22 | disposition home or self-care (01) | DRG 378 ==
LOC: ED 12:13 → 4A 14:05
PROVIDERS: ADMIT Family Medicine; ATTEND Family Medicine
PROC: 0DB48ZX Excision of Esophagogastric Junction, Via Natural or Artificial Opening Endoscopic, Diagnostic (ICD-10-PCS; principal; 2018-12-04)
PROC: 0DB78ZX Excision of Stomach, Pylorus, Via Natural or Artificial Opening Endoscopic, Diagnostic (ICD-10-PCS; 2018-12-04)
DX: K29.01 Acute gastritis with bleeding (principal); E87.1 Hypo-osmolality and hyponatremia; I69.354 Hemiplegia and hemiparesis following cerebral infarction affecting left non-dominant side; N17.9 Acute kidney failure, unspecified; K57.31 Diverticulosis of large intestine without perforation or abscess with bleeding; K27.0 Acute peptic ulcer, site unspecified, with hemorrhage; J44.9 Chronic obstructive pulmonary disease, unspecified; G47.30 Sleep apnea, unspecified; I25.10 Atherosclerotic heart disease of native coronary artery without angina pectoris; K21.9 Gastro-esophageal reflux disease without esophagitis; E11.51 Type 2 diabetes mellitus with diabetic peripheral angiopathy without gangrene; E03.9 Hypothyroidism, unspecified; K44.9 Diaphragmatic hernia without obstruction or gangrene; I50.9 Heart failure, unspecified; I11.0 Hypertensive heart disease with heart failure; I48.91 Unspecified atrial fibrillation; D64.9 Anemia, unspecified; Z96.653 Presence of artificial knee joint, bilateral; M19.90 Unspecified osteoarthritis, unspecified site; Z90.49 Acquired absence of other specified parts of digestive tract; Z87.891 Personal history of nicotine dependence; I25.2 Old myocardial infarction; Z79.4 Long term (current) use of insulin; Z86.711 Personal history of pulmonary embolism; Z88.0 Allergy status to penicillin; Z86.718 Personal history of other venous thrombosis and embolism; Z95.5 Presence of coronary angioplasty implant and graft; Z72.89 Other problems related to lifestyle; Z79.82 Long term (current) use of aspirin; Z79.899 Other long term (current) drug therapy
CPT/HCPCS: 36415; 74176; 76700; 80048; 80053; 80061; 81001; 82150; 82962; 83036; 83690; 83735; 83880; 84100; 84443; 85007; 85014; 85018; 85025; 85610; 85730; 88305; 88342; 93005; 93010; 96361; 96374; 96375; 96376; G0378; A9270-GY; J1815; J2250; J2270; J2405; J2704; J7030

== ENCOUNTER 2019-03-01 11:53 | Inpatient (IN) | payer MEDICARE ==
--- NOTE | 2019-03-01 12:14 | Emergency Department Report ---
Chief Complaint: Chest Pain Stated Complaint: CHEST PAIN/FEVER/LUNG PAIN Time Seen by Provider: 03/01/19 12:09 - HPI History of Present Illness: This is a 68 y.o. male that presents to the ER with cough and chest pain for 4 days. PMH COPD, CVA, MS, CHF, DM, & seizures - Exam Vital Signs: Vital Signs 03/01/19 12:11 Temperature 98.3 F Pulse Rate 92 H Respiratory 20 Rate Blood Pressure 136/86 O2 Sat by Pulse 86 Oximetry MSE screening note: Focused history and physical exam performed. Due to findings the following was ordered: Placed on oxygen 2L Labs, EKG, & CXR Main ED for further evaluation. ED Disposition for MSE Condition: Stable
[2019-03-01 12:43] LABS: Hematocrit 39.6 % (35.5-45.6); Mean Corpuscular HGB Conc 33 % (32-34); Mean Corpuscular Volume 83 fl (84-94); Platelet Count 180 K/mm3 (140-440); Red Blood Count 4.78 M/mm3 (3.65-5.03)
[2019-03-01 12:48] LABS: Red Cell Distribution Width 22.7 % (13.2-15.2)
[2019-03-01] MEDS ORDERED: NITRO-BID 2% TP ONE (12:55)
[2019-03-01] MEDS ORDERED: SUBLIMAZE IV ONE (12:55)
[2019-03-01] MEDS ORDERED: ASPIRIN PO ONE (12:55)
[2019-03-01] MEDS ORDERED: ZOFRAN IV ONE (12:55)
--- NOTE | 2019-03-01 13:02 | Emergency Department Report ---
HPI - General Chief Complaint: Chest Pain Time Seen by Provider: 03/01/19 12:09 - HPI HPI: Room 3 The patient is a 68-year-old male presenting with a chief complaint chest pain. The patient states his symptoms began 4 days ago with substernal chest pain described as sharp and intermittent in nature. Patient states the pain feels "about the same" as his previous MIs. The patient states he has had a subjective fever 2-3 days ago as well as a cough productive of whitish eastman sputum. The patient admits to occasional(. Patient missed his shortness of breath, nausea/vomiting and diaphoresis with his chest pain. Patient states she had a stress test last year with his last cardiac catheterization occurred over 5 years ago. Patient has one coronary stent Location: Chest Duration: Intermittent 4 days Quality: Sharp Severity: 02/13 Modifying factors: [see above] Context: [see above] Mode of transportation: [not driving] ED Past Medical Hx - Past Medical History Hx Hypertension: Yes (X 15 YRS) Hx CVA: Yes (L sided deficits) Hx Heart Attack/AMI: Yes (X 2 2011,2012) Hx Congestive Heart Failure: Yes (2010) Hx Diabetes: Yes Hx Deep Vein Thrombosis: Yes (RT ARM) Hx Pulmonary Embolism: Yes (RT SIDE 2011) Hx GERD: Yes Hx Arthritis: Yes Hx Seizures: Yes (LAST ONE 1 1/2 YR AGO) Hx COPD: Yes (Home O2) Additional medical history: Right knee replacement surgery 2013. Atrial fibrillation - Surgical History Hx Coronary Stent: Yes Hx Open Heart Surgery: Yes (CORONARY STENT X1;AAA) Hx Cholecystectomy: Yes Additional Surgical History: bilateral knee replacement,left shoulder - Family History Family history: no significant - Social History Smoking Status: Former Smoker (none 20 years) Substance Use Type: None (denies illicit drug use) - Medications Home Medications: Home Medications Medication Instructions Recorded Confirmed Last Taken Type Modafinil [Provigil] 200 mg PO QDAY #30 tablet 01/22/15 11/30/18 12/09/15 09:00 Rx Insulin Lispro [HumaLOG VIAL] 7 units SUB-Q TID 08/02/15 11/30/18 12/09/15 12:00 History DULoxetine [Cymbalta] 60 mg PO QDAY #30 capsule 12/05/18 Unknown Rx Furosemide [Lasix TAB] 40 mg PO DAILY tablet 12/05/18 Unknown Rx Gabapentin [Neurontin] 100 mg PO Q8HR #90 capsule 12/05/18 Unknown Rx Insulin Glargine [Lantus VIAL] 30 unit SUB-Q QHS #100 units 12/05/18 Unknown Rx Insulin Glargine [Lantus VIAL] 30 units SUB-Q QHS units 12/05/18 Unknown Rx Insulin Regular, Human [HumuLIN R] 0 units SUB-Q ACHS units 12/05/18 Unknown Rx Mirtazapine [Remeron] 45 mg PO QHS #30 tablet 12/05/18 Unknown Rx Omeprazole 40 mg PO BID #60 capsule. 12/05/18 Unknown Rx QUEtiapine [SEROquel] 200 mg PO BID #60 tablet 12/05/18 Unknown Rx Rosuvastatin (Nf) [Crestor] 20 mg PO QHS #30 tablet 12/05/18 Unknown Rx Trazodone HCl 150 mg PO QHS #30 tablet 12/05/18 Unknown Rx diazePAM [Diazepam] 2 mg PO QHS #30 tablet 12/05/18 Unknown Rx metFORMIN [Glucophage] 500 mg PO BID #60 tablet 12/05/18 Unknown Rx traMADol [Ultram 50 MG tab] 50 mg PO Q12HR PRN #10 tablet 12/05/18 Unknown Rx ED Review of Systems ROS: Stated complaint: CHEST PAIN/FEVER/LUNG PAIN Other details as noted in HPI Constitutional: diaphoresis Eyes: denies: eye pain ENT: denies: throat pain Respiratory: cough, shortness of breath, other (hemoptysis) Cardiovascular: chest pain Endocrine: no symptoms reported Gastrointestinal: nausea, vomiting Genitourinary: denies: dysuria Musculoskeletal: denies: back pain Neurological: denies: headache Physical Exam - Physical Exam Vital Signs: Vital Signs 03/01/19 12:11 Temperature 98.3 F Pulse Rate 92 H Respiratory 20 Rate Blood Pressure 136/86 O2 Sat by Pulse 86 Oximetry Physical Exam: GENERAL: The patient is well-developed well-nourished male lying on stretcher not appearing to be in acute distress. [] HEENT: Normocephalic. Atraumatic. Extraocular motions are intact. Patient has moist mucous membranes. NECK: Supple. Trachea midline CHEST/LUNGS: Clear to auscultation. There is no respiratory distress noted. HEART/CARDIOVASCULAR: Regular. There is no tachycardia. There is no gallop rub or murmur. ABDOMEN: Abdomen is soft, nontender. Patient has normal bowel sounds. There is no abdominal distention. SKIN: There is no rash. There is no edema. There is no diaphoresis. NEURO: The patient is awake, alert, and oriented. The patient is cooperative. The patient has normal speech MUSCULOSKELETAL: There is no evidence of acute injury. ED Course Vital Signs 03/01/19 12:11 Temperature 98.3 F Pulse Rate 92 H Respiratory 20 Rate Blood Pressure 136/86 O2 Sat by Pulse 86 Oximetry ED Medical Decision Making - Lab Data Result diagrams: 03/01/19 12:24 Laboratory Tests 03/01/19 03/01/19 03/01/19 12:24 12:24 13:00 WBC 7.0 RBC 4.78 Hgb 13.0 Hct 39.6 MCV 83 L MCH 27 L MCHC 33 RDW 22.7 H Plt Count 180 D-Dimer 232.47 Sodium 133 L Potassium 4.2 Chloride 98.6 Carbon Dioxide 25 Anion Gap 14 BUN 12 Creatinine 1.1 Estimated GFR > 60 BUN/Creatinine Ratio 11 Glucose 220 H Calcium 8.6 Troponin T < 0.010 - EKG Data -: EKG Interpreted by Me EKG shows normal: sinus rhythm Rate: normal - EKG Data When compared to previous EKG there are: no significant change Interpretation: nonspecific ST-T wave shalom (T-wave inversion in lead aVL) - Radiology Data Radiology results: image reviewed (chest x-ray) interpreted by me: Chest x-ray-no focal infiltrates, no pneumothorax - Differential Diagnosis bronchitis, pneumonia, ACS, PE, pericarditis Critical care attestation.: If time is entered above; I have spent that time in minutes in the direct care of this critically ill patient, excluding procedure time. ED Disposition Clinical Impression: Chest pain Disposition: DC-09 OP ADMIT IP TO THIS HOSP Is pt being admited?: Yes Does the pt Need Aspirin: Yes Condition: Fair Instructions: Chest Pain (ED) Time of Disposition: 13:36 (hospitalist paged (Dr Aleman))
[2019-03-01 13:05] LABS: BUN/Creatinine Ratio 11; Blood Urea Nitrogen 12 mg/dL (9-20); Calcium 8.6 mg/dL (8.4-10.2); Hemolysis Index 27
--- NOTE | 2019-03-01 13:38 | XRay Report ---
PORTABLE CHEST INDICATION: Chest pain. COMPARISON: 04/27/2018 FINDINGS: Portable, frontal chest radiograph suggests slight increased bronchovascular prominence centrally, with subtle/vague left mid to lower lung subcentimeter nodularity difficult to entirely exclude versus technical. No pleural effusions or CHF. Normal cardiomediastinal silhouette. Stable plate and screw repair about the left shoulder joint. EKG leads. CONCLUSION: Subtle nonspecific left mid to lower lung nodularity/bronchovascular prominence now questioned, as described. Followup with dedicated PA and lateral radiographs, if appropriate. Thank you for the opportunity to participate in this patient's care.
[2019-03-01 14:27] LABS: Anisocytosis 1+; Basophils % (Manual) 0 % (0.0-1.8); Eosinophils % (Manual) 0 % (0.0-4.3); Ovalocytes 1+; Total Cells Counted 100
[2019-03-01 14:28] LABS: Platelet Estimate Consistent w Auto; Spherocytes Rare
[2019-03-01] MEDS: HumaLOG SUB-Q SCH (23:48)
--- NOTE | 2019-03-02 02:16 | Event Note ---
Date: 03/01/19 See H/p in reports Chest pain r/o [place] Htn IDDM
[2019-03-02] MEDS ORDERED: ZOFRAN IV PRN (02:17)
[2019-03-02] MEDS ORDERED: SODIUM CHLORIDE FLUSH SYRINGE 10 ML IV PRN (02:17)
[2019-03-02] MEDS ORDERED: TYLENOL PO PRN (02:17)
--- NOTE | 2019-03-02 02:56 | History and Physical Report ---
CHIEF COMPLAINT: Left-sided chest pain. HISTORY OF PRESENT ILLNESS: This is a 68-year-old female with multiple medical problems including insulin-dependent diabetes, hypertension, coronary artery disease, congestive heart failure, deep vein thrombosis presents with left-sided chest pain for the last 4 days, intermittent in nature. This chest pain is about 6 on a scale of 1-10. Also, fever and cough is present. No diaphoresis, no palpitations. The patient states he had a stress test last year and cardiac catheterization over 5 years ago. PAST MEDICAL HISTORY: As mentioned, hypertension, cerebrovascular accident, coronary artery disease, congestive heart failure, diabetes, pulmonary embolism, deep vein thrombosis, gastroesophageal reflux disease, arthritis, seizures, chronic obstructive pulmonary disease and right knee replacement surgery and atrial fibrillation. PAST SURGICAL HISTORY: Right knee replacement, coronary stents x 1, cholecystectomy, left shoulder surgery, bilateral knee replacement. FAMILY HISTORY: Hypertension. SOCIAL HISTORY: Smoked until 20 years ago. CURRENT MEDICATIONS: On chart. REVIEW OF SYSTEMS: Review of systems is significant for chest pain for 4 days, intermittent in nature, 6 on a scale of 1-10. PHYSICAL EXAMINATION: GENERAL: Young elderly male, cooperative during examination. VITAL SIGNS: Blood pressure is 117/69, temperature is 98.6, pulse is 83, respirations are 20. HEENT: Unremarkable. Pupils are equal and reactive. NECK: Supple, no lymphadenopathy, no thyromegaly. LUNGS: Clear to auscultation and percussion. Good air entry. CARDIOVASCULAR: S1, S2 heard. No gallop, no murmur, no rub. Apical impulse in left fifth intercostal space and midclavicular line. ABDOMEN: Soft and benign. No hepatosplenomegaly. No guarding, no rigidity. Hernial orifices are normal. EXTREMITIES: Good pedal pulses. No pedal edema. CENTRAL NERVOUS SYSTEM: Alert and oriented x 4, nonfocal examination. SKIN: Normal. LABORATORY DATA AND IMAGING STUDIES: Labs are significant for MCV being slightly low at 83. H and H is 13 and 39.6, platelet count is normal. RDW is 22.7. Electrolytes are normal. Sodium is slightly low at 133, glucose is 220. BUN and creatinine is 13 and 1.1. EKG shows sinus rhythm, atrial premature complex, left anterior fascicular block, ST elevation, nonspecific. Chest x-ray shows normal chest x-ray, no acute findings, nonspecific left-mid to lower lung nodularity with bronchovascular prominence. Followup chest x-ray is recommended. ASSESSMENT AND PLAN: 1. Chest pain, rule out myocardial infarction. Chest pain protocol. Serial troponins and Lexiscan in the morning. 2. Hypertension. Continue antihypertensives. 3. Insulin-dependent diabetes. Continue insulin, Lantus and regular insulin coverage. 4. Gastroesophageal reflux disease. Continue omeprazole. 5. Hyperlipidemia. Continue rosuvastatin. 6. Depression. Continue trazodone. 7. Bipolar disorder. Continue Seroquel. 8. Peripheral neuropathy. Continue gabapentin. 9. Deep venous thrombosis prophylaxis. Lovenox 40 mg subcutaneous daily and gastrointestinal prophylaxis. [facility]# [id number] NIKOLAI/RITA
[2019-03-02] MEDS: DILAUDID IV PRN ×2 (04:34→23:21)
[2019-03-02] MEDS: NEURONTIN PO SCH ×3 (06:58→21:35)
[2019-03-02] MEDS: HumaLOG SUB-Q SCH ×7 (07:30→21:37)
[2019-03-02] MEDS ORDERED: LEXISCAN IV ONE ×2 (08:02→08:13)
[2019-03-02] MEDS ORDERED: NON-FORMULARY (Omeprazole [Omeprazole] 40 MG) PO SCH (10:00)
[2019-03-02] MEDS: PROTONIX PO SCH ×2 (12:52→21:35)
[2019-03-02] MEDS: GLUCOPHAGE PO SCH ×2 (12:52→21:36)
[2019-03-02] MEDS: CYMBALTA PO SCH (12:52)
[2019-03-02] MEDS: PROVIGIL PO SCH (12:52)
[2019-03-02] MEDS: SODIUM CHLORIDE FLUSH SYRINGE 10 ML IV SCH ×2 (12:53→21:36)
[2019-03-02] MEDS: LASIX PO SCH (12:53)
--- NOTE | 2019-03-02 14:31 | Treadmill Report ---
LEXISCAN STRESS TEST REPORT REASON FOR STUDY: Chest pain. STRESS TEST PROTOCOL: The patient received 0.4 mg of Lexiscan intravenously over 10 seconds. Tc-99m tetrofosmin was subsequently injected. Baseline ECG normal sinus rhythm with incomplete right bundle branch block. Lexiscan ECG, no ischemic changes. No chest pain. No arrhythmias. IMPRESSION: Electrocardiographically negative stress test. Nuclear imaging report to follow. JOB# [id number] AGO/NTS
--- NOTE | 2019-03-02 14:45 | Discharge Summary ---
Providers - Providers Date of Admission: 03/01/19 14:02 Date of discharge: 03/02/19 Attending physician: CARINA SIMON Primary care physician: JAY BOUCHER Hospitalization Condition: Fair Exam - Constitutional Vitals: Temp Pulse Resp BP Pulse Ox 97.7 F 82 18 136/87 94 03/02/19 12:22 03/02/19 12:22 03/02/19 12:22 03/02/19 12:22 03/02/19 12:22 Plan Activity: advance as tolerated Diet: low fat, low cholesterol, low salt, diabetic Additional Instructions: 1.Follow up with Dr. Boucher in 1 week Follow up with: JAY BOUCHER MD [Primary Care Provider] - 7 Days
--- NOTE | 2019-03-02 15:05 | Progress Note ---
Assessment and Plan Assessment and plan: Chest pain Stress test abnormal cardiology consulted For cardiac cath Monday Aspirin CAD Now with chest pain Hypertension Monitor BP Diabetes mellitus type 2 Accucheck qac and hs Afib Not on anticoagulation History of stroke Full code status. History Interval history: Chest pain Hospitalist Physical - Physical exam Narrative exam: Gen: Not in acute distress, lying in bed, obese HEENT: Normocephalic, atraumatic Neck: supple, no JVD Heart: S1 and S2 reg, no murmurs, rubs or gallop Lungs: Clear to auscultation,, no crackles Abd: soft, non tender, non distended, normal BS Ext: No edema, no clubbing, no cyanosis, left arm av fistula Neuro: AAO x 3, no focal signs, moves all ext Psych:Normal mood - Constitutional Vitals: Temp Pulse Resp BP Pulse Ox 97.7 F 82 18 136/87 94 03/02/19 12:22 03/02/19 12:22 03/02/19 12:22 03/02/19 12:22 03/02/19 12:22 Results - Labs CBC & Chem 7: 03/03/19 07:02 03/03/19 07:02 Labs: Laboratory Last Values WBC 7.0 K/mm3 (4.5-11.0) 03/01/19 12:24 RBC 4.78 M/mm3 (3.65-5.03) 03/01/19 12:24 Hgb 13.0 gm/dl (11.8-15.2) 03/01/19 12:24 Hct 39.6 % (35.5-45.6) 03/01/19 12:24 MCV 83 fl (84-94) L 03/01/19 12:24 MCH 27 pg (28-32) L 03/01/19 12:24 MCHC 33 % (32-34) 03/01/19 12:24 RDW 22.7 % (13.2-15.2) H 03/01/19 12:24 Plt Count 180 K/mm3 (140-440) 03/01/19 12:24 Add Manual Diff Complete 03/01/19 12:24 Total Counted 100 03/01/19 12:24 Seg Neuts % (Manual) 83.0 % (40.0-70.0) H 03/01/19 12:24 Band Neutrophils % 0 % 03/01/19 12:24 Lymphocytes % (Manual) 10.0 % (13.4-35.0) L 03/01/19 12:24 Reactive Lymphs % (Man) 0 % 03/01/19 12:24 Monocytes % (Manual) 7.0 % (0.0-7.3) 03/01/19 12:24 Eosinophils % (Manual) 0 % (0.0-4.3) 03/01/19 12:24 Basophils % (Manual) 0 % (0.0-1.8) 03/01/19 12:24 Metamyelocytes % 0 % 03/01/19 12:24 Myelocytes % 0 % 03/01/19 12:24 Promyelocytes % 0 % 03/01/19 12:24 Blast Cells % 0 % 03/01/19 12:24 Nucleated RBC % Not Reportable 03/01/19 12:24 Seg Neutrophils # Man 5.8 K/mm3 (1.8-7.7) 03/01/19 12:24 Band Neutrophils # 0.0 K/mm3 03/01/19 12:24 Lymphocytes # (Manual) 0.7 K/mm3 (1.2-5.4) L 03/01/19 12:24 Abs React Lymphs (Man) 0.0 K/mm3 03/01/19 12:24 Monocytes # (Manual) 0.5 K/mm3 (0.0-0.8) 03/01/19 12:24 Eosinophils # (Manual) 0.0 K/mm3 (0.0-0.4) 03/01/19 12:24 Basophils # (Manual) 0.0 K/mm3 (0.0-0.1) 03/01/19 12:24 Metamyelocytes # 0.0 K/mm3 03/01/19 12:24 Myelocytes # 0.0 K/mm3 03/01/19 12:24 Promyelocytes # 0.0 K/mm3 03/01/19 12:24 Blast Cells # 0.0 K/mm3 03/01/19 12:24 WBC Morphology Not Reportable 03/01/19 12:24 Hypersegmented Neuts Not Reportable 03/01/19 12:24 Hyposegmented Neuts Not Reportable 03/01/19 12:24 Hypogranular Neuts Not Reportable 03/01/19 12:24 Smudge Cells Not Reportable 03/01/19 12:24 Toxic Granulation Not Reportable 03/01/19 12:24 Toxic Vacuolation Not Reportable 03/01/19 12:24 Dohle Bodies Not Reportable 03/01/19 12:24 Pelger-Huet Anomaly Not Reportable 03/01/19 12:24 Roney Rods Not Reportable 03/01/19 12:24 Platelet Estimate Consistent w auto 03/01/19 12:24 Clumped Platelets Not Reportable 03/01/19 12:24 Plt Clumps, EDTA Not Reportable 03/01/19 12:24 Large Platelets Not Reportable 03/01/19 12:24 Giant Platelets Not Reportable 03/01/19 12:24 Platelet Satelliting Not Reportable 03/01/19 12:24 Plt Morphology Comment Not Reportable 03/01/19 12:24 RBC Morphology Not Reportable 03/01/19 12:24 Dimorphic RBCs Not Reportable 03/01/19 12:24 Polychromasia Not Reportable 03/01/19 12:24 Hypochromasia Not Reportable 03/01/19 12:24 Poikilocytosis Not Reportable 03/01/19 12:24 Anisocytosis 1+ 03/01/19 12:24 Microcytosis 1+ 03/01/19 12:24 Macrocytosis Not Reportable 03/01/19 12:24 Spherocytes Rare 03/01/19 12:24 Pappenheimer Bodies Not Reportable 03/01/19 12:24 Sickle Cells Not Reportable 03/01/19 12:24 Target Cells Not Reportable 03/01/19 12:24 Tear Drop Cells Not Reportable 03/01/19 12:24 Ovalocytes 1+ 03/01/19 12:24 Helmet Cells Not Reportable 03/01/19 12:24 [place] Bodies Not Reportable 03/01/19 12:24 Busby Rings Not Reportable 03/01/19 12:24 [place] Cells Not Reportable 03/01/19 12:24 Bite Cells Not Reportable 03/01/19 12:24 Crenated Cell Not Reportable 03/01/19 12:24 Elliptocytes Not Reportable 03/01/19 12:24 Acanthocytes (Spur) Not Reportable 03/01/19 12:24 Rouleaux Not Reportable 03/01/19 12:24 Hemoglobin C Crystals Not Reportable 03/01/19 12:24 Schistocytes Not Reportable 03/01/19 12:24 Malaria parasites Not Reportable 03/01/19 12:24 Gurinder Bodies Not Reportable 03/01/19 12:24 Hem Pathologist Commnt No 03/01/19 12:24 D-Dimer 232.47 ng/mlDDU (0-234) 03/01/19 13:00 Sodium 133 mmol/L (137-145) L 03/01/19 12:24 Potassium 4.2 mmol/L (3.6-5.0) 03/01/19 12:24 Chloride 98.6 mmol/L (98-107) 03/01/19 12:24 Carbon Dioxide 25 mmol/L (22-30) 03/01/19 12:24 Anion Gap 14 mmol/L 03/01/19 12:24 BUN 12 mg/dL (9-20) 03/01/19 12:24 Creatinine 1.1 mg/dL (0.8-1.5) 03/01/19 12:24 Estimated GFR > 60 ml/min 03/01/19 12:24 BUN/Creatinine Ratio 11 % 03/01/19 12:24 Glucose 220 mg/dL (75-100) H 03/01/19 12:24 POC Glucose 203 (70-105) H 03/02/19 12:43 Hemoglobin A1c 6.9 % (4-6) H 03/02/19 03:24 Calcium 8.6 mg/dL (8.4-10.2) 03/01/19 12:24 Troponin T < 0.010 ng/mL (0.00-0.029) 03/02/19 08:27 Active Medications - Current Medications Current Medications: Generic Name Dose Route Start Last Admin Trade Name Freq PRN Reason Stop Dose Admin Acetaminophen 650 mg 03/02/19 02:17 Tylenol PO Q4H PRN Pain MILD(1-3)/Fever >100.5/HUDSON Atorvastatin Calcium 40 mg 03/02/19 22:00 Lipitor PO QHS [facility] Diazepam 2 mg 03/02/19 22:00 Valium PO QHS [facility] Duloxetine HCl 60 mg 03/02/19 10:00 03/02/19 12:52 Cymbalta PO 60 mg QDAY ALAN Administration Enoxaparin Sodium 40 mg 03/02/19 22:00 Lovenox SUB-Q QDAY@2200 ALAN Furosemide 40 mg 03/02/19 10:00 03/02/19 12:53 Lasix PO 40 mg DAILY ALAN Administration Gabapentin 100 mg 03/02/19 06:00 03/02/19 06:58 Neurontin PO 100 mg Q8HR ALAN Administration Hydromorphone HCl 0.5 mg 03/02/19 02:17 03/02/19 04:34 Dilaudid IV 0.5 mg Q3H PRN Administration Pain , Severe (7-10) Insulin Glargine 35 units 03/02/19 22:00 Lantus SUB-Q QHS ALAN Insulin Human Lispro 0 unit 03/01/19 23:20 03/02/19 12:50 Humalog SUB-Q 2 unit ACHS ALAN Administration Protocol Insulin Human Lispro 10 unit 03/02/19 07:30 03/02/19 12:51 Humalog SUB-Q 10 unit AC LAAN Administration Metformin HCl 500 mg 03/02/19 10:00 03/02/19 12:52 Glucophage PO 500 mg BID ALAN Administration Mirtazapine 45 mg 03/02/19 22:00 Remeron PO QHS ALAN Modafinil 200 mg 03/02/19 10:00 03/02/19 12:52 Provigil PO 200 mg QDAY ALAN Administration Ondansetron HCl 4 mg 03/02/19 02:17 Zofran IV Q8H PRN Nausea And Vomiting Oxycodone/Acetaminophen 1 tab 03/02/19 02:17 Percocet 5/325 PO Q6H PRN Pain, Moderate (4-6) Pantoprazole Sodium 40 mg 03/02/19 10:00 03/02/19 12:52 Protonix PO 40 mg BID ALAN Administration Quetiapine Fumarate 200 mg 03/02/19 10:00 03/02/19 12:53 Seroquel PO 200 mg BID ALAN Administration Sodium Chloride 10 ml 03/02/19 02:17 Sodium Chloride Flush Syringe 10 Ml IV PRN PRN LINE FLUSH Sodium Chloride 10 ml 03/02/19 10:00 03/02/19 12:53 Sodium Chloride Flush Syringe 10 Ml IV 10 ml BID ALAN Administration Trazodone HCl 150 mg 03/02/19 22:00 Desyrel PO QHS ALAN
[2019-03-02] MEDS: PERCOCET 5/325 PO PRN (15:27)
--- NOTE | 2019-03-02 15:54 | Consultation ---
History of Present Illness Consult date: 03/02/19 Requesting physician: CARINA SIMON Consult reason: chest pain (abnormal stress test) History of present illness: The patient is followed in our office. He has a history of CAD, paroxysmal atrial fibrillation, COPD on home oxygen therapy and CVA with residual left hemiparesis. He has been experiencing recurrent, sharp substernal chest pain for the past 5 days. Chest pain is associated with shortness of breath. He presented to the ER last night. Today, he underwent Lexiscan stress MPI which revealed a small to medium-size reversible apical defect suggestive of mild to moderate ischemia. Today, he has continued to experience recurrent chest pain. Past History Past Medical History: atrial fib, CAD, COPD, diabetes, heart failure, hypertension, hyperlipidemia, pulmonary embolism, stroke Past Surgical History: total knee replacement Social history: . denies: smoking, alcohol abuse Family history: CAD Medications and Allergies Allergies Allergy/AdvReac Type Severity Reaction Status Date / Time Penicillins Allergy Severe Swelling Verified 03/01/19 23:25 bismuth subsalicylate AdvReac Vomiting Verified 03/01/19 23:25 [From Pepto-Bismol] squash Allergy Hives Uncoded 11/30/15 14:39 Home Medications Medication Instructions Recorded Confirmed Last Taken Type Modafinil [Provigil] 200 mg PO QDAY #30 tablet 01/22/15 03/01/19 12/09/15 09:00 Rx DULoxetine [Cymbalta] 60 mg PO QDAY #30 capsule 12/05/18 03/01/19 Unknown Rx Furosemide [Lasix TAB] 40 mg PO DAILY tablet 12/05/18 03/01/19 Unknown Rx Gabapentin [Neurontin] 100 mg PO Q8HR #90 capsule 12/05/18 03/01/19 Unknown Rx Mirtazapine [Remeron] 45 mg PO QHS #30 tablet 12/05/18 03/01/19 Unknown Rx Omeprazole 40 mg PO BID #60 capsule. 12/05/18 03/01/19 Unknown Rx QUEtiapine [SEROquel] 200 mg PO BID #60 tablet 12/05/18 03/01/19 Unknown Rx Trazodone HCl 150 mg PO QHS #30 tablet 12/05/18 03/01/19 Unknown Rx diazePAM [Diazepam] 2 mg PO QHS #30 tablet 12/05/18 03/01/19 Unknown Rx metFORMIN [Glucophage] 500 mg PO BID #60 tablet 12/05/18 03/01/19 Unknown Rx Insulin Aspart [NovoLOG 100 10 units SUB-Q AC 03/01/19 03/01/19 Unknown History UNITS/ML VIAL] Insulin Glargine [Lantus VIAL] 35 units SUB-Q QHS 03/01/19 03/01/19 Unknown History Rosuvastatin Calcium [Crestor] 20 mg PO HS 03/01/19 03/01/19 Unknown History Active Meds: Active Medications Acetaminophen (Tylenol) 650 mg PO Q4H PRN PRN Reason: Pain MILD(1-3)/Fever >100.5/HUDSON Atorvastatin Calcium (Lipitor) 40 mg PO QHS [facility] Diazepam (Valium) 2 mg PO QHS [facility] Duloxetine HCl (Cymbalta) 60 mg PO QDAY [facility] Last Admin: 03/02/19 12:52 Dose: 60 mg Documented by: Enoxaparin Sodium (Lovenox) 40 mg SUB-Q QDAY@2200 [facility] Furosemide (Lasix) 40 mg PO DAILY [facility] Last Admin: 03/02/19 12:53 Dose: 40 mg Documented by: Gabapentin (Neurontin) 100 mg PO Q8HR [facility] Last Admin: 03/02/19 15:20 Dose: 100 mg Documented by: Hydromorphone HCl (Dilaudid) 0.5 mg IV Q3H PRN PRN Reason: Pain , Severe (7-10) Last Admin: 03/02/19 04:34 Dose: 0.5 mg Documented by: Insulin Glargine (Lantus) 35 units SUB-Q [facility] Insulin Human Lispro (Humalog) 0 unit SUB-Q [facility]; Protocol Last Admin: 03/02/19 12:50 Dose: 2 unit Documented by: Insulin Human Lispro (Humalog) 10 unit SUB-Q [facility] Last Admin: 03/02/19 12:51 Dose: 10 unit Documented by: Metformin HCl (Glucophage) 500 mg PO BID [facility] Last Admin: 03/02/19 12:52 Dose: 500 mg Documented by: Mirtazapine (Remeron) 45 mg PO QHS [facility] Modafinil (Provigil) 200 mg PO QDAY [facility] Last Admin: 03/02/19 12:52 Dose: 200 mg Documented by: Ondansetron HCl (Zofran) 4 mg IV Q8H PRN PRN Reason: Nausea And Vomiting Oxycodone/Acetaminophen (Percocet 5/325) 1 tab PO Q6H PRN PRN Reason: Pain, Moderate (4-6) Last Admin: 03/02/19 15:27 Dose: 1 tab Documented by: Pantoprazole Sodium (Protonix) 40 mg PO BID [facility] Last Admin: 03/02/19 12:52 Dose: 40 mg Documented by: Quetiapine Fumarate (Seroquel) 200 mg PO BID [facility] Last Admin: 03/02/19 12:53 Dose: 200 mg Documented by: Sodium Chloride (Sodium Chloride Flush Syringe 10 Ml) 10 ml IV PRN PRN PRN Reason: LINE FLUSH Sodium Chloride (Sodium Chloride Flush Syringe 10 Ml) 10 ml IV BID [facility] Last Admin: 03/02/19 12:53 Dose: 10 ml Documented by: Trazodone HCl (Desyrel) 150 mg PO QHS [facility] Review of Systems Constitutional: no fever, no chills Ears, nose, mouth and throat: no ear pain, no ear discharge, no sore throat Cardiovascular: chest pain, shortness of breath, no palpitations, no lightheadedness Respiratory: shortness of breath, no cough, no hemoptysis Gastrointestinal: no abdominal pain, no nausea, no vomiting, no diarrhea, no constipation Genitourinary Male: no dysuria, no urinary frequency Rectal: no pain, no bleeding Musculoskeletal: no neck stiffness, no neck pain Integumentary: no rash, no pruritis Neurological: no parathesias, no numbness, no tingling, no headaches Endocrine: no cold intolerance, no heat intolerance Hematologic/Lymphatic: no easy bruising, no easy bleeding Allergic/Immunologic: no urticaria, no wheezing Physical Examination Vital Signs Last Vital Signs Temp 97.7 F 03/02/19 12:22 Pulse 82 03/02/19 12:22 Resp 20 03/02/19 15:27 BP 136/87 03/02/19 12:22 Pulse Ox 94 03/02/19 12:22 General appearance: no acute distress HEENT: Positive: EOMI, Normocephaly, Mucus Membranes Moist Neck: Positive: neck supple, trachea midline Cardiac: Positive: Reg Rate and Rhythm, S1/S2 Lungs: Positive: Wheezes Neuro: Positive: Other (left hemiparesis) Abdomen: Positive: Soft, Active Bowel Sounds. Negative: Tender Skin: Positive: Clear. Negative: Rash Musculoskeletal: Normal Range of Motion Extremities: Absent: edema Results 03/01/19 12:24 03/01/19 12:24 - Imaging and Cardiology EKG: image reviewed EKG interpretations - Telemetry EKG Rhythm: Sinus Rhythm - EKG Sinus rhythms and dysrhythmias: sinus rhythm AV and intraventricular conduction: right bundle branch block, left anterior fascicular Assessment and Plan Add long acting nitrates to his regimen. Scheduled for coronary angiography on Monday. - Patient Problems (1) Chest pain Onset Date: 04/06/15 Current Visit: Yes Status: Acute (2) Abnormal nuclear stress test Current Visit: Yes Status: Acute (3) CAD (coronary artery disease) Current Visit: Yes Status: Chronic Qualifiers: Coronary Disease-Associated Artery/Lesion type: [place] artery (4) COPD (chronic obstructive pulmonary disease) Onset Date: 12/31/13 Current Visit: Yes Status: Chronic (5) Hypertension Current Visit: Yes Status: Chronic Qualifiers: Hypertension type: essential hypertension Qualified Code(s): I10 - Essential (primary) hypertension (6) Paroxysmal atrial fibrillation Current Visit: No Status: Chronic (7) Diabetes Current Visit: Yes Status: Chronic Qualifiers: Diabetes mellitus complication status: without complication (8) History of pulmonary embolism Current Visit: No Status: Chronic (9) H/O: CVA (cerebrovascular accident) Current Visit: Yes Status: Chronic
[2019-03-02] MEDS ORDERED: NACL 0.9% 500 ML 500 ML IV SCH (17:00)
[2019-03-02] MEDS: IMDUR PO SCH (18:01)
--- NOTE | 2019-03-02 20:04 | Treadmill Report ---
THALLIUM REPORT REASON FOR STUDY: Chest pain. IMAGING PROTOCOL: The patient received Tc-99m Tetrofosmin for stress and rest imaging. Imaging for all procedures was completed 30-90 minutes following the initial injection of Technetium 99m Tetrofosmin. SPECT imaging in the 180 degree arc was performed in the right anterior oblique projection. Computerized reconstruction of the images was performed for analysis. NUCLEAR IMAGING RESULTS: Normal left ventricular cavity size with no change from stress to rest. Distribution of radionuclide within the left ventricle revealed a small to medium size area of photo-induction involving the apex. The degree of photo-induction is moderate. Rest imaging showed complete improvement in this defect. In addition, there is a small area of photo-induction involving the basal inferior wall. The degree of photo-induction is mild to moderate. Rest imaging does not show any significant improvement in this defect. Gated SPECT imaging revealed mild global left ventricular systolic dysfunction with moderate septal and inferior hypokinesis. The calculated left ventricular ejection fraction is 46%. IMPRESSION: Small to medium size reversible apical defect. Small fixed inferobasal defect. Mild global left ventricular systolic dysfunction with moderate inferior and septal hypokinesis. EF 46%. These findings suggest mild to moderate reversible ischemia in the left anterior descending coronary artery territory. In addition, there is suggestion of a small area of prior infarction in the right coronary artery territory. JOB# [id number] CANDICE/RITA BUTLER
[2019-03-02] MEDS: LOVENOX SUB-Q SCH (21:35)
[2019-03-02] MEDS: DESYREL PO SCH (21:35)
[2019-03-02] MEDS: REMERON PO SCH (21:36)
[2019-03-02] MEDS: LANTUS SUB-Q SCH (21:37)
[2019-03-02] MEDS: VALIUM PO SCH (21:38)
[2019-03-02] MEDS ORDERED: NON-FORMULARY (Rosuvastatin Calcium [Crestor] 20 MG) PO SCH (22:00)
[2019-03-03] MEDS: NEURONTIN PO SCH ×3 (06:11→21:50)
[2019-03-03 07:56] LABS: Basophils % (Auto) 0.7 % (0.0-1.8); Eosinophils # (Auto) 0.1 K/mm3 (0.0-0.4); Hemoglobin 12.3 gm/dl (11.8-15.2); Lymphocytes # (Auto) 1.2 K/mm3 (1.2-5.4); Lymphocytes % (Auto) 19.7 % (13.4-35.0); Mean Corpuscular HGB Conc 32 % (32-34); Mean Corpuscular Volume 83 fl (84-94); Monocytes # (Auto) 0.5 K/mm3 (0.0-0.8); Monocytes % (Auto) 8.2 % (0.0-7.3); Platelet Count 189 K/mm3 (140-440); Red Blood Count 4.58 M/mm3 (3.65-5.03)
[2019-03-03 08:08] LABS: Red Cell Distribution Width 22.8 % (13.2-15.2)
[2019-03-03 08:51] LABS: Alanine Aminotransferase 16 units/L (7-56); Albumin 3.6 g/dL (3.9-5); BUN/Creatinine Ratio 8; Blood Urea Nitrogen 9 mg/dL (9-20); Calcium 8.8 mg/dL (8.4-10.2); Hemolysis Index 2
[2019-03-03] MEDS: IMDUR PO SCH (09:30)
[2019-03-03] MEDS: LASIX PO SCH (09:30)
[2019-03-03] MEDS: PROTONIX PO SCH ×2 (09:30→21:50)
[2019-03-03] MEDS: GLUCOPHAGE PO SCH ×2 (09:31→21:50)
[2019-03-03] MEDS: HumaLOG SUB-Q SCH ×7 (09:32→21:53)
[2019-03-03] MEDS: PERCOCET 5/325 PO PRN ×2 (09:53→22:20)
[2019-03-03] MEDS: SODIUM CHLORIDE FLUSH SYRINGE 10 ML IV SCH ×2 (09:59→22:51)
[2019-03-03] MEDS: CYMBALTA PO SCH (11:45)
[2019-03-03] MEDS: PROVIGIL PO SCH (12:00)
[2019-03-03] MEDS ORDERED: ASPIRIN PO STA (12:08)
--- NOTE | 2019-03-03 12:13 | Progress Note ---
Assessment and Plan Assessment and plan: Chest pain Stress test abnormal cardiology consulted For cardiac cath Monday Aspirin CAD Now with chest pain Hypertension Monitor BP Diabetes mellitus type 2 Accucheck qac and hs Afib Not on anticoagulation History of stroke Full code status. History Interval history: Patient presented with chest pain Has abnormal stress test Hospitalist Physical - Physical exam Narrative exam: Gen: Not in acute distress, lying in bed, obese HEENT: Normocephalic, atraumatic Neck: supple, no JVD Heart: S1 and S2 reg, no murmurs, rubs or gallop Lungs: Clear to auscultation,, no crackles Abd: soft, non tender, non distended, normal BS Ext: No edema, no clubbing, no cyanosis, left arm av fistula Neuro: AAO x 3, no focal signs, moves all ext Psych:Normal mood - Constitutional Vitals: Temp Pulse Resp BP Pulse Ox 98.4 F 90 18 101/65 93 03/03/19 11:59 03/03/19 11:59 03/03/19 11:59 03/03/19 11:59 03/03/19 11:59 General appearance: Present: no acute distress Results - Labs CBC & Chem 7: 03/03/19 07:02 03/03/19 07:02 Labs: Laboratory Last Values WBC 6.0 K/mm3 (4.5-11.0) 03/03/19 07:02 RBC 4.58 M/mm3 (3.65-5.03) 03/03/19 07:02 Hgb 12.3 gm/dl (11.8-15.2) 03/03/19 07:02 Hct 38.0 % (35.5-45.6) 03/03/19 07:02 MCV 83 fl (84-94) L 03/03/19 07:02 MCH 27 pg (28-32) L 03/03/19 07:02 MCHC 32 % (32-34) 03/03/19 07:02 RDW 22.8 % (13.2-15.2) H 03/03/19 07:02 Plt Count 189 K/mm3 (140-440) 03/03/19 07:02 Lymph % (Auto) 19.7 % (13.4-35.0) 03/03/19 07:02 [place] % (Auto) 8.2 % (0.0-7.3) H 03/03/19 07:02 Eos % (Auto) 2.0 % (0.0-4.3) 03/03/19 07:02 Baso % (Auto) 0.7 % (0.0-1.8) 03/03/19 07:02 Lymph # 1.2 K/mm3 (1.2-5.4) 03/03/19 07:02 [place] # 0.5 K/mm3 (0.0-0.8) 03/03/19 07:02 Eos # 0.1 K/mm3 (0.0-0.4) 03/03/19 07:02 Baso # 0.0 K/mm3 (0.0-0.1) 03/03/19 07:02 Add Manual Diff Complete 03/01/19 12:24 Total Counted 100 03/01/19 12:24 Seg Neutrophils % 69.4 % (40.0-70.0) 03/03/19 07:02 Seg Neuts % (Manual) 83.0 % (40.0-70.0) H 03/01/19 12:24 Band Neutrophils % 0 % 03/01/19 12:24 Lymphocytes % (Manual) 10.0 % (13.4-35.0) L 03/01/19 12:24 Reactive Lymphs % (Man) 0 % 03/01/19 12:24 Monocytes % (Manual) 7.0 % (0.0-7.3) 03/01/19 12:24 Eosinophils % (Manual) 0 % (0.0-4.3) 03/01/19 12:24 Basophils % (Manual) 0 % (0.0-1.8) 03/01/19 12:24 Metamyelocytes % 0 % 03/01/19 12:24 Myelocytes % 0 % 03/01/19 12:24 Promyelocytes % 0 % 03/01/19 12:24 Blast Cells % 0 % 03/01/19 12:24 Nucleated RBC % Not Reportable 03/01/19 12:24 Seg Neutrophils # 4.1 K/mm3 (1.8-7.7) 03/03/19 07:02 Seg Neutrophils # Man 5.8 K/mm3 (1.8-7.7) 03/01/19 12:24 Band Neutrophils # 0.0 K/mm3 03/01/19 12:24 Lymphocytes # (Manual) 0.7 K/mm3 (1.2-5.4) L 03/01/19 12:24 Abs React Lymphs (Man) 0.0 K/mm3 03/01/19 12:24 Monocytes # (Manual) 0.5 K/mm3 (0.0-0.8) 03/01/19 12:24 Eosinophils # (Manual) 0.0 K/mm3 (0.0-0.4) 03/01/19 12:24 Basophils # (Manual) 0.0 K/mm3 (0.0-0.1) 03/01/19 12:24 Metamyelocytes # 0.0 K/mm3 03/01/19 12:24 Myelocytes # 0.0 K/mm3 03/01/19 12:24 Promyelocytes # 0.0 K/mm3 03/01/19 12:24 Blast Cells # 0.0 K/mm3 03/01/19 12:24 WBC Morphology Not Reportable 03/01/19 12:24 Hypersegmented Neuts Not Reportable 03/01/19 12:24 Hyposegmented Neuts Not Reportable 03/01/19 12:24 Hypogranular Neuts Not Reportable 03/01/19 12:24 Smudge Cells Not Reportable 03/01/19 12:24 Toxic Granulation Not Reportable 03/01/19 12:24 Toxic Vacuolation Not Reportable 03/01/19 12:24 Dohle Bodies Not Reportable 03/01/19 12:24 Pelger-Huet Anomaly Not Reportable 03/01/19 12:24 Roney Rods Not Reportable 03/01/19 12:24 Platelet Estimate Consistent w auto 03/01/19 12:24 Clumped Platelets Not Reportable 03/01/19 12:24 Plt Clumps, EDTA Not Reportable 03/01/19 12:24 Large Platelets Not Reportable 03/01/19 12:24 Giant Platelets Not Reportable 03/01/19 12:24 Platelet Satelliting Not Reportable 03/01/19 12:24 Plt Morphology Comment Not Reportable 03/01/19 12:24 RBC Morphology Not Reportable 03/01/19 12:24 Dimorphic RBCs Not Reportable 03/01/19 12:24 Polychromasia Not Reportable 03/01/19 12:24 Hypochromasia Not Reportable 03/01/19 12:24 Poikilocytosis Not Reportable 03/01/19 12:24 Anisocytosis 1+ 03/01/19 12:24 Microcytosis 1+ 03/01/19 12:24 Macrocytosis Not Reportable 03/01/19 12:24 Spherocytes Rare 03/01/19 12:24 Pappenheimer Bodies Not Reportable 03/01/19 12:24 Sickle Cells Not Reportable 03/01/19 12:24 Target Cells Not Reportable 03/01/19 12:24 Tear Drop Cells Not Reportable 03/01/19 12:24 Ovalocytes 1+ 03/01/19 12:24 Helmet Cells Not Reportable 03/01/19 12:24 Gibson-Bronson Bodies Not Reportable 03/01/19 12:24 [place] Rings Not Reportable 03/01/19 12:24 [place] Cells Not Reportable 03/01/19 12:24 Bite Cells Not Reportable 03/01/19 12:24 Crenated Cell Not Reportable 03/01/19 12:24 Elliptocytes Not Reportable 03/01/19 12:24 Acanthocytes (Spur) Not Reportable 03/01/19 12:24 Rouleaux Not Reportable 03/01/19 12:24 Hemoglobin C Crystals Not Reportable 03/01/19 12:24 Schistocytes Not Reportable 03/01/19 12:24 Malaria parasites Not Reportable 03/01/19 12:24 Gurinder Bodies Not Reportable 03/01/19 12:24 Hem Pathologist Commnt No 03/01/19 12:24 D-Dimer 232.47 ng/mlDDU (0-234) 03/01/19 13:00 Sodium 136 mmol/L (137-145) L 03/03/19 07:02 Potassium 4.5 mmol/L (3.6-5.0) 03/03/19 07:02 Chloride 93.6 mmol/L (98-107) L 03/03/19 07:02 Carbon Dioxide 28 mmol/L (22-30) 03/03/19 07:02 Anion Gap 19 mmol/L 03/03/19 07:02 BUN 9 mg/dL (9-20) 03/03/19 07:02 Creatinine 1.1 mg/dL (0.8-1.5) 03/03/19 07:02 Estimated GFR > 60 ml/min 03/03/19 07:02 BUN/Creatinine Ratio 8 % 03/03/19 07:02 Glucose 220 mg/dL (75-100) H 03/03/19 07:02 POC Glucose 197 (70-105) H 03/03/19 07:42 Hemoglobin A1c 6.9 % (4-6) H 03/02/19 03:24 Calcium 8.8 mg/dL (8.4-10.2) 03/03/19 07:02 Total Bilirubin 0.50 mg/dL (0.1-1.2) 03/03/19 07:02 AST 15 units/L (5-40) 03/03/19 07:02 ALT 16 units/L (7-56) 03/03/19 07:02 Alkaline Phosphatase 49 units/L (35-129) 03/03/19 07:02 Troponin T < 0.010 ng/mL (0.00-0.029) 03/02/19 08:27 Total Protein 6.5 g/dL (6.3-8.2) 03/03/19 07:02 Albumin 3.6 g/dL (3.9-5) L 03/03/19 07:02 Albumin/Globulin Ratio 1.2 % 03/03/19 07:02 Active Medications - Current Medications Current Medications: Generic Name Dose Route Start Last Admin Trade Name Freq PRN Reason Stop Dose Admin Acetaminophen 650 mg 03/02/19 02:17 Tylenol PO Q4H PRN Pain MILD(1-3)/Fever >100.5/HUDSON Aspirin 325 mg 03/03/19 12:08 Aspirin PO 03/03/19 12:09 ONCE STA Aspirin 325 mg 03/04/19 10:00 Aspirin PO QDAY ALAN Atorvastatin Calcium 40 mg 03/02/19 22:00 03/02/19 21:36 Lipitor PO 40 mg QHS ALAN Administration Diazepam 2 mg 03/02/19 22:00 03/02/19 21:38 Valium PO Not Given QHS ALAN Duloxetine HCl 60 mg 03/02/19 10:00 03/03/19 11:45 Cymbalta PO 60 mg QDAY ALAN Administration Enoxaparin Sodium 40 mg 03/02/19 22:00 03/02/19 21:35 Lovenox SUB-Q 40 mg QDAY@2200 ALAN Administration Furosemide 40 mg 03/02/19 10:00 03/03/19 09:30 Lasix PO 40 mg DAILY ALAN Administration Gabapentin 100 mg 03/02/19 06:00 03/03/19 06:11 Neurontin PO 100 mg Q8HR ALAN Administration Hydromorphone HCl 0.5 mg 03/02/19 02:17 03/02/19 23:21 Dilaudid IV 0.5 mg Q3H PRN Administration Pain , Severe (7-10) Insulin Glargine 35 units 03/02/19 22:00 03/02/19 21:37 Lantus SUB-Q 35 units QHS ALAN Administration Insulin Human Lispro 0 unit 03/01/19 23:20 03/03/19 09:32 Humalog SUB-Q 2 unit ACHS ALAN Administration Protocol Insulin Human Lispro 10 unit 03/02/19 07:30 03/03/19 10:04 Humalog SUB-Q 10 unit AC ALAN Administration Isosorbide Mononitrate 30 mg 03/02/19 16:00 03/03/19 09:30 Imdur PO 30 mg QDAY ALAN Administration Metformin HCl 500 mg 03/02/19 10:00 03/03/19 09:31 Glucophage PO 500 mg BID ALAN Administration Metoprolol Tartrate 25 mg 03/03/19 13:00 Lopressor PO BID ALAN Mirtazapine 45 mg 03/02/19 22:00 03/02/19 21:36 Remeron PO 45 mg QHS ALAN Administration Modafinil 200 mg 03/02/19 10:00 03/03/19 12:00 Provigil PO 200 mg QDAY ALAN Administration Ondansetron HCl 4 mg 03/02/19 02:17 03/03/19 09:54 Zofran IV 4 mg Q8H PRN Administration Nausea And Vomiting Oxycodone/Acetaminophen 1 tab 03/02/19 02:17 03/03/19 09:53 Percocet 5/325 PO 1 tab Q6H PRN Administration Pain, Moderate (4-6) Pantoprazole Sodium 40 mg 03/02/19 10:00 03/03/19 09:30 Protonix PO 40 mg BID ALAN Administration Quetiapine Fumarate 200 mg 03/02/19 10:00 03/03/19 09:29 Seroquel PO 200 mg BID ALAN Administration Sodium Chloride 10 ml 03/02/19 02:17 Sodium Chloride Flush Syringe 10 Ml IV PRN PRN LINE FLUSH Sodium Chloride 10 ml 03/02/19 10:00 03/03/19 09:59 Sodium Chloride Flush Syringe 10 Ml IV 10 ml BID ALAN Administration Trazodone HCl 150 mg 03/02/19 22:00 03/02/19 21:35 Desyrel PO 150 mg QHS ALAN Administration
[2019-03-03] MEDS: LOPRESSOR PO SCH ×2 (13:49→22:21)
--- NOTE | 2019-03-03 15:06 | Progress Note ---
Assessment and Plan BMP and magnesium in am. Coronary angiography in am. - Patient Problems (1) Chest pain Onset Date: 04/06/15 Current Visit: Yes Status: Acute (2) Abnormal nuclear stress test Current Visit: Yes Status: Acute (3) CAD (coronary artery disease) Current Visit: Yes Status: Chronic Qualifiers: Coronary Disease-Associated Artery/Lesion type: [place] artery (4) NSVT (nonsustained ventricular tachycardia) Current Visit: Yes Status: Acute (5) COPD (chronic obstructive pulmonary disease) Onset Date: 12/31/13 Current Visit: Yes Status: Chronic (6) Paroxysmal atrial fibrillation Current Visit: No Status: Chronic (7) Hypertension Current Visit: Yes Status: Chronic Qualifiers: Hypertension type: essential hypertension Qualified Code(s): I10 - Essential (primary) hypertension (8) Diabetes Current Visit: Yes Status: Chronic Qualifiers: Diabetes mellitus complication status: without complication (9) History of pulmonary embolism Current Visit: No Status: Chronic (10) H/O: CVA (cerebrovascular accident) Current Visit: Yes Status: Chronic Subjective Date of service: 03/03/19 Principal diagnosis: CP, Abnormal stress test, CAD, PAF Interval history: He continues to experience intermittent chest pain. Objective Vital Signs Last Vital Signs Temp 98.4 F 03/03/19 11:59 Pulse 90 03/03/19 13:49 Resp 18 03/03/19 11:59 BP 101/65 03/03/19 13:49 Pulse Ox 93 03/03/19 11:59 - Physical Examination General: No Apparent Distress HEENT: Positive: EOMI, Normocephaly, Mucus Membranes Moist Neck: Positive: neck supple, trachea midline Cardiac: Positive: Reg Rate and Rhythm, S1/S2 Lungs: Positive: clear to auscultation Neuro: Positive: Grossly Intact, Other (left hemiparesis) Abdomen: Positive: Soft, Active Bowel Sounds. Negative: Tender Skin: Positive: Clear. Negative: Rash Musculoskeletal: Normal Range of Motion Extremities: Absent: edema - Labs and Meds Cardiac Enzymes 03/03/19 Range/Units 07:02 AST 15 (5-40) units/L CBC 03/03/19 Range/Units 07:02 WBC 6.0 (4.5-11.0) K/mm3 RBC 4.58 (3.65-5.03) M/mm3 Hgb 12.3 (11.8-15.2) gm/dl Hct 38.0 (35.5-45.6) % Plt Count 189 (140-440) K/mm3 Lymph # 1.2 (1.2-5.4) K/mm3 [place] # 0.5 (0.0-0.8) K/mm3 Eos # 0.1 (0.0-0.4) K/mm3 Baso # 0.0 (0.0-0.1) K/mm3 Comprehensive Metabolic Panel 03/03/19 Range/Units 07:02 Sodium 136 L (137-145) mmol/L Potassium 4.5 (3.6-5.0) mmol/L Chloride 93.6 L (98-107) mmol/L Carbon Dioxide 28 (22-30) mmol/L BUN 9 (9-20) mg/dL Creatinine 1.1 (0.8-1.5) mg/dL Glucose 220 H (75-100) mg/dL Calcium 8.8 (8.4-10.2) mg/dL AST 15 (5-40) units/L ALT 16 (7-56) units/L Alkaline Phosphatase 49 (35-129) units/L Total Protein 6.5 (6.3-8.2) g/dL Albumin 3.6 L (3.9-5) g/dL - Imaging and Cardiology EKG: image reviewed - Telemetry EKG Rhythm: Sinus Rhythm (Brief nonsustained VT and PVCs) - EKG Sinus rhythms and dysrhythmias: sinus rhythm AV and intraventricular conduction: right bundle branch block, left anterior fascicular
[2019-03-03] MEDS: DESYREL PO SCH (21:49)
[2019-03-03] MEDS: LOVENOX SUB-Q SCH (21:50)
[2019-03-03] MEDS: LANTUS SUB-Q SCH (21:52)
[2019-03-03] MEDS: VALIUM PO SCH (22:12)
[2019-03-03] MEDS: REMERON PO SCH (22:50)
[2019-03-03] MEDS ORDERED: NACL 0.9% 500 ML 500 ML IV SCH (23:00)
[2019-03-04 05:34] LABS: INR 1.02 (0.87-1.13); Partial Thromboplastin Time 28.8 Sec. (24.2-36.6)
[2019-03-04 05:49] LABS: BUN/Creatinine Ratio 11; Blood Urea Nitrogen 12 mg/dL (9-20); Calcium 8.6 mg/dL (8.4-10.2); Hemolysis Index 4
[2019-03-04] MEDS: NEURONTIN PO SCH ×2 (06:33→14:28)
[2019-03-04] MEDS: ASPIRIN PO SCH ×2 (07:42→09:57)
[2019-03-04] MEDS ORDERED: ASPIRIN ONE (07:42)
[2019-03-04] MEDS: HumaLOG SUB-Q SCH ×6 (07:53→16:51)
[2019-03-04] MEDS ORDERED: MAGNESIUM SULFATE 4GM/100ML 4 GM/100 ML BAG IV ONE (08:10)
[2019-03-04] MEDS ORDERED: HEPARIN 10,000 UNITS/10 ML ONE (08:46)
[2019-03-04] MEDS ORDERED: HEPARIN/NS 5000 UNIT/500ML(CATH LAB) 1,000 ML IR ONE (08:46)
[2019-03-04] MEDS ORDERED: NITROGLYCERIN SYRINGE 0 ML ONE (08:47)
[2019-03-04] MEDS ORDERED: VERSED ONE (08:47)
[2019-03-04] MEDS ORDERED: CALAN ONE (08:47)
[2019-03-04] MEDS ORDERED: XYLOCAINE 2% INFILTRATI ONE (08:47)
[2019-03-04] MEDS ORDERED: SUBLIMAZE ONE (08:48)
[2019-03-04] MEDS: GLUCOPHAGE PO SCH (09:56)
[2019-03-04] MEDS ORDERED: NACL 0.9% 500 ML 500 ML ONE (10:00)
[2019-03-04] MEDS: CYMBALTA PO SCH (11:14)
[2019-03-04] MEDS: PROTONIX PO SCH (11:17)
[2019-03-04] MEDS: LASIX PO SCH (11:18)
[2019-03-04] MEDS: LOPRESSOR PO SCH (11:18)
[2019-03-04] MEDS: IMDUR PO SCH (11:18)
[2019-03-04] MEDS: PROVIGIL PO SCH (11:18)
[2019-03-04] MEDS: SODIUM CHLORIDE FLUSH SYRINGE 10 ML IV SCH (11:19)
--- NOTE | 2019-03-04 11:22 | Cardiac Catherization Report ---
CARDIAC CATHETERIZATION CLINICAL INFORMATION: The patient is a 68-year-old white gentleman being followed in our office with previous history of known coronary artery disease, paroxysmal atrial fibrillation, underlying chronic obstructive pulmonary disease, on home oxygen, and history of CVA many years ago, who was admitted with recurrent chest pain of 5 days' duration on 03/01/2019. Subsequently, underwent pharmacological stress testing with IV Lexiscan, which was found to be abnormal, hence, scheduled for cardiac catheterization for definitive diagnosis and treatment. The patient is aware of the procedure, potential complications and alternatives of therapy available. DESCRIPTION OF PROCEDURE: The patient was brought to the catheterization laboratory in a fasting condition. The right wrist area and forearm thoroughly cleansed with Betadine solution. The patient was evaluated for moderate sedation and was felt to be appropriate candidate for moderate sedation and received IV Versed and fentanyl. The patient was monitored continuously with a pulse oximetry, EKG, and hemodynamic monitoring. After giving local anesthesia, right radial artery puncture was made using 21-gauge arterial puncture needle. Subsequently, 5-Salvadorean slender sheath was introduced. A 5-Salvadorean multipurpose catheter was used to obtain the angiograms of the right coronary artery in multiple views followed by obtaining the angiograms of the left coronary artery using the 5-Salvadorean TIG catheter. Subsequently, it was attempted to enter the left ventricle using multipurpose catheter with a Glidewire, with the JR4 catheter and also with the TIG catheter; however, could not enter the left ventricle. Hence, no left ventriculogram was performed. At the end of the procedure, catheter and sheath were removed and good hemostasis was achieved with manual pressure with radial band. The patient tolerated the procedure well. At the end of the procedure, the patient is communicating normally and moving all the extremities and breathing normally. The patient's sedation started at 9:52 a.m. and ended at 10:19 a.m. No untoward complications were noted. Following findings were noted. HEMODYNAMICS: 1. Opening aortic pressure 126/75. Left ventricle not entered. 2. Right coronary artery, large, dominant vessel arises somewhat anteriorly and inferiorly. However, huge vessel with supplying large left ventricular branches and large PDA. Angiographically smooth and normal. 3. Left coronary artery arises normally from left coronary cusp. Left main shows very mild smooth distal 10% lesion. LAD relatively small caliber vessel and its diagonal branches and circumflex artery, which is a small caliber vessel is without significant disease. Collaterals none. FINAL IMPRESSION: Only mild coronary artery disease noted. Could not enter the left ventricle. Considering the above, we will get an echocardiogram for evaluation of the aortic valve. The patient does have some calcification in the aortic valve area. We will obtain an echocardiogram. Otherwise, the patient has only mild coronary artery disease. Considering the above, would continue risk factor modification and medical therapy. At this time, the patient's chest pain appeared to be atypical, most likely nonischemic. Same was explained to the patient. JOB# [id number] SAKSHI/RITA
--- NOTE | 2019-03-04 13:32 | Progress Note ---
Assessment and Plan S/p C this AM which showed nonobstructive CAD, unable to enter LV. Continue medical therapy. Echo done at [facility] on 01/08/2019 reviewed - EF 50-55%, mild LVH, pseudonormalization, RV mildly dilated, AV severely calcified with mod to severe with peak gradient of 49 and mean gradient 35mmHg. Currently stable cardiac status. No current clinical evidence of acute heart failure and pt reports resolution of chest pain. Pt may discharge home today following completion of post-cath order set. In setting of severe , recommend pt to avoid physical exertion until OP follow up. Follow up in our office with Dr. Solano on 03/06/2019 @ 9:30AM. The patient has been seen in conjunction with Dr. Mohamud who agrees with the assessment and plan of care. - Patient Problems (1) Chest pain Onset Date: 04/06/15 Current Visit: Yes Status: Resolved (2) Abnormal nuclear stress test Current Visit: Yes Status: Acute (3) CAD (coronary artery disease) Current Visit: Yes Status: Chronic Qualifiers: Coronary Disease-Associated Artery/Lesion type: [place] artery (4) NSVT (nonsustained ventricular tachycardia) Current Visit: Yes Status: Acute (5) COPD (chronic obstructive pulmonary disease) Onset Date: 12/31/13 Current Visit: Yes Status: Chronic (6) Hypertension Current Visit: Yes Status: Chronic Qualifiers: Hypertension type: essential hypertension Qualified Code(s): I10 - Essential (primary) hypertension (7) Diabetes Current Visit: Yes Status: Chronic Qualifiers: Diabetes mellitus complication status: without complication (8) History of pulmonary embolism Current Visit: No Status: Chronic (9) H/O: CVA (cerebrovascular accident) Current Visit: Yes Status: Chronic (10) Aortic stenosis Current Visit: Yes Status: Chronic Subjective Date of service: 03/04/19 Principal diagnosis: CP, Abnormal stress test, CAD, PAF Interval history: pt resting in bed, no current cardiac complaints. Objective Last Vital Signs Temp 97.8 F 03/04/19 13:00 Pulse 77 03/04/19 13:00 Resp 20 03/04/19 13:00 BP 112/80 03/04/19 13:00 Pulse Ox 90 03/04/19 13:00 - Physical Examination General: No Apparent Distress HEENT: Positive: EOMI, Normocephaly, Mucus Membranes Moist Neck: Positive: neck supple, trachea midline Cardiac: Positive: Reg Rate and Rhythm, S1/S2 Lungs: Positive: clear to auscultation Neuro: Positive: Grossly Intact, Other (left hemiparesis) Abdomen: Positive: Soft, Active Bowel Sounds. Negative: Tender Skin: Positive: Clear. Negative: Rash Musculoskeletal: Normal Range of Motion Extremities: Absent: edema - Labs and Meds Coagulation 03/04/19 Range/Units 05:02 PT 14.0 (12.2-14.9) Sec. INR 1.02 (0.87-1.13) APTT 28.8 (24.2-36.6) Sec. Comprehensive Metabolic Panel 03/04/19 Range/Units 05:02 Sodium 134 L (137-145) mmol/L Potassium 4.3 (3.6-5.0) mmol/L Chloride 92.2 L (98-107) mmol/L Carbon Dioxide 30 (22-30) mmol/L BUN 12 (9-20) mg/dL Creatinine 1.1 (0.8-1.5) mg/dL Glucose 200 H (75-100) mg/dL Calcium 8.6 (8.4-10.2) mg/dL - Imaging and Cardiology EKG: image reviewed - EKG Sinus rhythms and dysrhythmias: sinus rhythm AV and intraventricular conduction: right bundle branch block, left anterior fascicular
[2019-03-04 14:12] VITALS: BP 124/72
--- NOTE | 2019-03-04 14:20 | Discharge Summary ---
Providers - Providers Date of Admission: 03/04/19 10:04 Date of discharge: 03/04/19 Attending physician: CARINA SIMON 03/02/19 14:53 Consult to Physician [CONS] Routine Comment: Consulting Provider: MIGUELITO SNIDER Physician Instructions: Reason For Exam: abnormal stress 03/04/19 11:52 Consult to Cardiac Rehabilitation [CONS] Routine Reason For Exam: Cardiac Rehab Evaluation Primary care physician: JAY BOUCHER Hospitalization Condition: Fair Hospital course: Patient is 68 yo with hypertension, diabetes, CHF, atrial fibrillation. he presented with chest pain. He was given Aspirin and admitted. Stress test was done was abnormal therfore cardiology wqas consulted and cardiac cath was recommended. Cardiac cath done on 03/04/[address] Mclain revealed only mild coronary artery disease. Chest pain, non cardiac. He was subsequently discharged home. total time spent on discharge,31 mins Disposition: DC-01 TO HOME OR SELFCARE - Discharge Diagnoses (1) Abnormal nuclear stress test Status: Acute (2) Chest pain Status: Acute (3) Diabetes mellitus type 2, uncontrolled Status: Chronic (4) Hyperlipidemia Status: Chronic (5) Hypertension Status: Chronic Qualifiers: Hypertension type: essential hypertension Qualified Code(s): I10 - Essential (primary) hypertension (6) Paroxysmal atrial fibrillation Status: Chronic (7) CAD (coronary artery disease) Status: Acute (8) Type II diabetes mellitus, uncontrolled Status: Chronic Core Measure Documentation - Palliative Care Palliative Care/ Comfort Measures: Not Applicable - Core Measures Any of the following diagnoses?: none Exam - Constitutional Vitals: Temp Pulse Resp BP Pulse Ox 97.8 F 79 21 124/72 91 03/04/19 13:00 03/04/19 14:00 03/04/19 14:00 03/04/19 14:00 03/04/19 14:00 Plan Diet: low fat, low cholesterol, low salt, diabetic Additional Instructions: 1.No strenous activity unless cleared by doll dresser. 2.Follow up with Dr. Nereida Leonard, cardiology on 03/06/19. 3.Follow up with PCP in 1 week. Follow up with: MERLYN LEONARD MD [Staff Physician] - 7 Days (Follow up in our office with Dr. Leonard on 03/06/2019 @ 9:30AM. ) JAY BOUCHER MD [Primary Care Provider] - 7 Days Prescriptions: Aspirin EC 81 mg PO QDAY #30 tablet. ISOSORBIDE MONOnitrate [Imdur ER] 30 mg PO QDAY #30 tablet Metoprolol [Lopressor TAB] 25 mg PO BID #60 tablet
[2019-03-04] MEDS ORDERED: NACL 0.9% 500 ML 500 ML IV ONE (16:21)
[2019-03-04] MEDS: PERCOCET 5/325 PO PRN (16:49)
[2019-03-05] MEDS ORDERED: BABY ASPIRIN PO SCH (10:00)
== END 2019-03-04 18:25 | disposition home or self-care (01) | DRG 287 ==
LOC: ED 11:53 → 4A 14:02 → OBSVTOIN 03-04 10:04
PROVIDERS: ADMIT Internal Medicine; ATTEND Internal Medicine
PROC: 4A023N7 Measurement of Cardiac Sampling and Pressure, Left Heart, Percutaneous Approach (ICD-10-PCS; principal; 2019-03-04)
PROC: B2100ZZ Fluoroscopy of Single Coronary Artery using High Osmolar Contrast (ICD-10-PCS; 2019-03-04)
DX: R07.89 Other chest pain (principal); I69.354 Hemiplegia and hemiparesis following cerebral infarction affecting left non-dominant side; I47.2 Ventricular tachycardia; K21.9 Gastro-esophageal reflux disease without esophagitis; E78.5 Hyperlipidemia, unspecified; Z96.653 Presence of artificial knee joint, bilateral; I25.10 Atherosclerotic heart disease of native coronary artery without angina pectoris; I11.0 Hypertensive heart disease with heart failure; I48.0 Paroxysmal atrial fibrillation; J44.9 Chronic obstructive pulmonary disease, unspecified; I35.0 Nonrheumatic aortic (valve) stenosis; I50.9 Heart failure, unspecified; F31.9 Bipolar disorder, unspecified; E11.42 Type 2 diabetes mellitus with diabetic polyneuropathy; Z86.718 Personal history of other venous thrombosis and embolism; Z79.01 Long term (current) use of anticoagulants; Z87.891 Personal history of nicotine dependence; Z86.711 Personal history of pulmonary embolism; Z90.49 Acquired absence of other specified parts of digestive tract; Z95.5 Presence of coronary angioplasty implant and graft; Z99.81 Dependence on supplemental oxygen; Z88.0 Allergy status to penicillin; Z79.4 Long term (current) use of insulin; I25.2 Old myocardial infarction
CPT/HCPCS: 36415; 71045; 78452; 80048; 80053; 82962; 83036; 83735; 84484; 85007; 85025; 85379; 85610; 85730; 93005; 93010; 93017; 93458; 94760; G0378; A9270-GY; A9502; C1769; C1887; C1894; J1170; J1644; J1650; J1815; J2250; J2405; J2785; J3010; J3475; J7040; Q9967

== ENCOUNTER 2019-04-23 10:01 | Emergency (ER) | payer MEDICARE ==
[2019-04-23] MEDS ORDERED: ZOFRAN IV ONE (10:51)
[2019-04-23] MEDS ORDERED: DILAUDID IV ONE ×2 (10:52→14:53)
--- NOTE | 2019-04-23 10:54 | Emergency Department Report ---
ED Chest Pain HPI - General Chief Complaint: Chest Pain Stated Complaint: CHEST PAIN Time Seen by Provider: 04/23/19 10:34 Source: EMS, old records reviewed Mode of arrival: Ambulatory Limitations: No Limitations - History of Present Illness Initial Comments: 68-year-old male with a past medical history previous DVT/PE, COPD, CVA with residual left-sided weakness, hypertension, and CAD with stents placed presents to the hospital with complaints of chest pain and syncope. Patient states he has been having and some substernal and left-sided chest pain described as a "pushing sensation". Moderate in intensity. Patient took 4-5 nitroglycerin throughout the night which temporarily alleviated pain and left to sleep but and he will wake up with recurrent pain throughout the night. Patient complains of persistent nausea without vomiting. Denies shortness of breath. Today while ambulating he clutched his chest and a syncopal episode and clammy appearance. Patient next remembers being in route to the hospital in the abdomen. He complains of persistent chest pain and nausea. He states that yesterday he received outpatient testing and evaluation by cardiology at [facility]. He has known significant aortic stenosis and received a CAT scan of "his whole body" in preparation/planning for possible surgical procedure to correct aortic stenosis. His carpenters supervisor is Dr. Hernan Solano with [facility]. Patient takes a baby aspirin daily and is not on anticoagulation due to history of GI bleed. Patient apparently has chronic ongoing generalized abdominal pain 03/04/2019 patient had a stress test here showing mild coronary artery disease CT scan performed 04/22/2019 at [facility] obtained by Pamella Gates with [facility]. Patient had a CT angiogram of the chest that showed no pulmonary embolism. Positive pulmonary emphysema and no contraindication to femoral artery access for EVELYNE placement - Related Data Home Medications Medication Instructions Recorded Confirmed Last Taken Insulin Aspart [NovoLOG 100 10 units SUB-Q AC 03/01/19 03/01/19 Unknown UNITS/ML VIAL] Insulin Glargine [Lantus VIAL] 35 units SUB-Q QHS 03/01/19 03/01/19 Unknown Rosuvastatin Calcium [Crestor] 20 mg PO HS 03/01/19 04/23/19 Unknown Trazodone HCl 300 mg PO QHS 04/23/19 04/23/19 Unknown metFORMIN [Glucophage] 1,000 mg PO BID 04/23/19 04/23/19 Unknown Previous Rx's Medication Instructions Recorded Last Taken Type Modafinil [Provigil] 200 mg PO QDAY #30 tablet 01/22/15 12/09/15 09:00 Rx DULoxetine [Cymbalta] 60 mg PO QDAY #30 capsule 12/05/18 Unknown Rx Furosemide [Lasix TAB] 40 mg PO DAILY tablet 12/05/18 Unknown Rx Gabapentin [Neurontin] 100 mg PO Q8HR #90 capsule 12/05/18 Unknown Rx Mirtazapine [Remeron 15mg TAB] 45 mg PO QHS #30 tablet 12/05/18 Unknown Rx Omeprazole 40 mg PO BID #60 capsule. 12/05/18 Unknown Rx QUEtiapine [SEROquel] 200 mg PO BID #60 tablet 12/05/18 Unknown Rx diazePAM [Diazepam] 2 mg PO QHS #30 tablet 12/05/18 Unknown Rx Aspirin EC 81 mg PO QDAY #30 tablet. 03/04/19 Unknown Rx ISOSORBIDE MONOnitrate [Imdur ER] 30 mg PO QDAY #30 tablet 03/04/19 Unknown Rx Metoprolol [Lopressor TAB] 25 mg PO BID #60 tablet 03/04/19 Unknown Rx Allergies Allergy/AdvReac Type Severity Reaction Status Date / Time Penicillins Allergy Severe Swelling Verified 03/01/19 23:25 bismuth subsalicylate AdvReac Vomiting Verified 03/01/19 23:25 [From Pepto-Bismol] squash Allergy Hives Uncoded 11/30/15 14:39 Heart Score - HEART Score History: Moderately suspicious EKG: Non-specific Age: > 65 Risk factors: > 3 risk factors or hx of atherosclerotic disease Troponin: < normal limit HEART Score: 6 ED Review of Systems ROS: Stated complaint: CHEST PAIN Other details as noted in HPI Comment: All other systems reviewed and negative ED Past Medical Hx - Past Medical History Previous Medical History?: Yes Hx Hypertension: Yes (X 15 YRS) Hx CVA: Yes (x2 L sided deficits) Hx Heart Attack/AMI: Yes (X 2 2011,2012) Hx Congestive Heart Failure: Yes (2010) Hx Diabetes: Yes Hx Deep Vein Thrombosis: Yes (RT ARM) Hx Pulmonary Embolism: Yes (RT SIDE 2011) Hx GERD: Yes Hx Renal Disease: No Hx Sickle Cell Disease: No Hx Arthritis: Yes Hx Seizures: Yes (LAST ONE 1 1/2 YR AGO) Hx COPD: Yes (Home O2) Hx HIV: No Additional medical history: Bilateral knee replacement surgery. Atrial fibrillation - Surgical History Past Surgical History?: Yes Hx Coronary Stent: Yes Hx Open Heart Surgery: Yes (CORONARY STENT X1;AAA) Hx Cholecystectomy: Yes Additional Surgical History: bilateral knee replacement,left shoulder - Family History Family history: CAD/[place] - Social History Smoking Status: Former Smoker Substance Use Type: None - Medications Home Medications: Home Medications Medication Instructions Recorded Confirmed Last Taken Type Modafinil [Provigil] 200 mg PO QDAY #30 tablet 01/22/15 03/01/19 12/09/15 09:00 Rx DULoxetine [Cymbalta] 60 mg PO QDAY #30 capsule 12/05/18 04/23/19 Unknown Rx Furosemide [Lasix TAB] 40 mg PO DAILY tablet 12/05/18 04/23/19 Unknown Rx Gabapentin [Neurontin] 100 mg PO Q8HR #90 capsule 12/05/18 04/23/19 Unknown Rx Mirtazapine [Remeron 15mg TAB] 45 mg PO QHS #30 tablet 12/05/18 04/23/19 Unknown Rx Omeprazole 40 mg PO BID #60 capsule. 12/05/18 03/01/19 Unknown Rx QUEtiapine [SEROquel] 200 mg PO BID #60 tablet 12/05/18 03/01/19 Unknown Rx diazePAM [Diazepam] 2 mg PO QHS #30 tablet 12/05/18 04/23/19 Unknown Rx Insulin Aspart [NovoLOG 100 10 units SUB-Q AC 03/01/19 03/01/19 Unknown History UNITS/ML VIAL] Insulin Glargine [Lantus VIAL] 35 units SUB-Q QHS 03/01/19 03/01/19 Unknown History Rosuvastatin Calcium [Crestor] 20 mg PO HS 03/01/19 04/23/19 Unknown History Aspirin EC 81 mg PO QDAY #30 tablet. 03/04/19 Unknown Rx ISOSORBIDE MONOnitrate [Imdur ER] 30 mg PO QDAY #30 tablet 03/04/19 04/23/19 Unknown Rx Metoprolol [Lopressor TAB] 25 mg PO BID #60 tablet 03/04/19 Unknown Rx Trazodone HCl 300 mg PO QHS 04/23/19 04/23/19 Unknown History metFORMIN [Glucophage] 1,000 mg PO BID 04/23/19 04/23/19 Unknown History ED Physical Exam - General Limitations: No Limitations - Other Other exam information: General: No limitations, patient is alert in no acute distress Head exam: Atraumatic, normocephalic Eyes exam: Normal appearance, pupils equal reactive to light, extraocular movements intact ENT: Moist mucous membrane, normal oropharynx Neck exam: Normal inspection, full range of motion, no meningismus nontender Respiratory exam: Clear to auscultation bilateral, no wheezes, rales, crackles Cardiovascular: Normal rate and rhythm Abdomen: Soft, nondistended, generalized tenderness, with normal bowel sounds, no rebound, or guarding Extremity: Full range of motion normal inspection no deformity, no calf tenderness or edema Back: Normal Inspection, full range of motion, no tenderness Neurologic: Alert, oriented x3, slightly slurred speech, 4/5 strength on the left arm, 3/5 left leg, 5/5 right arm and leg. Psychiatric: normal affect, normal mood Skin: Warm, dry, intact ED Course Vital Signs 04/23/19 04/23/19 04/23/19 10:16 10:20 10:30 Temperature 97.5 F L Pulse Rate 71 Respiratory 18 Rate Blood Pressure 116/82 114/75 Blood Pressure [Left] O2 Sat by Pulse 93 98 91 Oximetry 04/23/19 04/23/19 04/23/19 10:46 11:00 11:16 Temperature Pulse Rate 82 Respiratory 16 Rate Blood Pressure 114/75 121/85 121/85 Blood Pressure 121/85 [Left] O2 Sat by Pulse 95 95 93 Oximetry 04/23/19 04/23/19 04/23/19 11:30 11:54 12:00 Temperature Pulse Rate 66 Respiratory 16 Rate Blood Pressure 117/78 117/78 117/78 Blood Pressure 117/78 [Left] O2 Sat by Pulse 93 95 97 Oximetry 04/23/19 04/23/19 04/23/19 12:16 12:27 13:00 Temperature Pulse Rate 78 78 Respiratory 14 14 Rate Blood Pressure 121/88 Blood Pressure 128/76 128/76 [Left] O2 Sat by Pulse 89 98 98 Oximetry 04/23/19 04/23/19 04/23/19 14:23 14:30 14:46 Temperature Pulse Rate Respiratory Rate Blood Pressure 129/76 139/80 121/88 Blood Pressure [Left] O2 Sat by Pulse 95 94 Oximetry 04/23/19 04/23/19 04/23/19 15:00 15:16 15:30 Temperature Pulse Rate 69 Respiratory 16 Rate Blood Pressure 131/78 131/78 131/78 Blood Pressure 131/78 [Left] O2 Sat by Pulse 88 95 97 Oximetry 04/23/19 04/23/19 04/23/19 15:50 16:00 16:16 Temperature Pulse Rate Respiratory Rate Blood Pressure 156/82 156/82 140/108 Blood Pressure [Left] O2 Sat by Pulse 92 93 91 Oximetry 04/23/19 04/23/19 04/23/19 16:30 16:46 17:00 Temperature Pulse Rate Respiratory Rate Blood Pressure 133/104 133/104 147/88 Blood Pressure [Left] O2 Sat by Pulse 94 94 93 Oximetry 04/23/19 04/23/19 17:16 17:22 Temperature 97.2 F L Pulse Rate 72 Respiratory 16 Rate Blood Pressure 147/88 Blood Pressure 147/88 [Left] O2 Sat by Pulse 93 94 Oximetry - Consultations Consultation #1: 04/23/19 12:54 case was d/w with Pamella Gates and Dr Cobos with [facility]. They contacted [facility]. at 12:17 pt was accepted by carpenters supervisor Dr Markham to [facility]. We are awaiting bed assignment at this time. PEEWEE score - Peewee Score Age > 65: (0) No Aspirin use within the Past 7 Days: (1) Yes 3 or more CAD Risk Factors: (1) Yes 2 or more Angina events in past 24 hrs: (0) No Known CAD with more than 50% Stenosis: (0) No Elevated Cardiac Markers: (0) No ST Deviation Greater than 0.5mm: (0) No PEEWEE Score: 2 ED Medical Decision Making - Lab Data Result diagrams: 04/23/19 10:40 04/23/19 10:40 Lab Results 04/23/19 04/23/19 04/23/19 Range/Units 10:40 10:40 10:40 WBC 4.7 (4.5-11.0) K/mm3 RBC 4.65 (3.65-5.03) M/mm3 Hgb 13.0 (11.8-15.2) gm/dl Hct 39.6 (35.5-45.6) % MCV 85 (84-94) fl MCH 28 (28-32) pg MCHC 33 (32-34) % RDW 16.3 H (13.2-15.2) % Plt Count 203 (140-440) K/mm3 Lymph % (Auto) 18.2 (13.4-35.0) % Gosper % (Auto) 7.8 H (0.0-7.3) % Eos % (Auto) 1.8 (0.0-4.3) % Baso % (Auto) 1.0 (0.0-1.8) % Lymph # 0.9 L (1.2-5.4) K/mm3 Gosper # 0.4 (0.0-0.8) K/mm3 Eos # 0.1 (0.0-0.4) K/mm3 Baso # 0.0 (0.0-0.1) K/mm3 Seg Neutrophils % 71.2 H (40.0-70.0) % Seg Neutrophils # 3.3 (1.8-7.7) K/mm3 PT 13.4 (12.2-14.9) Sec. INR 1.05 (0.87-1.13) APTT 28.7 (24.2-36.6) Sec. D-Dimer 267.08 H (0-234) ng/mlDDU Sodium 140 (137-145) mmol/L Potassium 4.4 (3.6-5.0) mmol/L Chloride 103.1 (98-107) mmol/L Carbon Dioxide 28 (22-30) mmol/L Anion Gap 13 mmol/L BUN 11 (9-20) mg/dL Creatinine 1.2 (0.8-1.5) mg/dL Estimated GFR > 60 ml/min BUN/Creatinine Ratio 9 % Glucose 189 H (75-100) mg/dL Calcium 8.4 (8.4-10.2) mg/dL Total Bilirubin 0.30 (0.1-1.2) mg/dL AST 24 (5-40) units/L ALT 19 (7-56) units/L Alkaline Phosphatase 51 (35-129) units/L Troponin T < 0.010 (0.00-0.029) ng/mL Total Protein 6.3 (6.3-8.2) g/dL Albumin 3.7 L (3.9-5) g/dL Albumin/Globulin Ratio 1.4 % 04/23/19 04/23/19 Range/Units 13:34 16:18 WBC (4.5-11.0) K/mm3 RBC (3.65-5.03) M/mm3 Hgb (11.8-15.2) gm/dl Hct (35.5-45.6) % MCV (84-94) fl MCH (28-32) pg MCHC (32-34) % RDW (13.2-15.2) % Plt Count (140-440) K/mm3 Lymph % (Auto) (13.4-35.0) % Gosper % (Auto) (0.0-7.3) % Eos % (Auto) (0.0-4.3) % Baso % (Auto) (0.0-1.8) % Lymph # (1.2-5.4) K/mm3 Gosper # (0.0-0.8) K/mm3 Eos # (0.0-0.4) K/mm3 Baso # (0.0-0.1) K/mm3 Seg Neutrophils % (40.0-70.0) % Seg Neutrophils # (1.8-7.7) K/mm3 PT (12.2-14.9) Sec. INR (0.87-1.13) APTT (24.2-36.6) Sec. D-Dimer (0-234) ng/mlDDU Sodium (137-145) mmol/L Potassium (3.6-5.0) mmol/L Chloride (98-107) mmol/L Carbon Dioxide (22-30) mmol/L Anion Gap mmol/L BUN (9-20) mg/dL Creatinine (0.8-1.5) mg/dL Estimated GFR ml/min BUN/Creatinine Ratio % Glucose (75-100) mg/dL Calcium (8.4-10.2) mg/dL Total Bilirubin (0.1-1.2) mg/dL AST (5-40) units/L ALT (7-56) units/L Alkaline Phosphatase (35-129) units/L Troponin T < 0.010 < 0.010 (0.00-0.029) ng/mL Total Protein (6.3-8.2) g/dL Albumin (3.9-5) g/dL Albumin/Globulin Ratio % - EKG Data -: EKG Interpreted by [facility] EKG shows normal: sinus rhythm, axis (qrs -45), QRS complexes (qrsd 112), ST-T waves (no stemi) Rate: normal (64) - EKG Data When compared to previous EKG there are: no significant change - Radiology Data Radiology results: report reviewed, image reviewed (prelim doppler b/l negative for lower extermity dvt) AP CHEST: HISTORY: Chest pain, syncope AP view of the chest demonstrates a normal mediastinal and cardiac contour with clear lungs and normal bony and soft tissue structures. Subtle patchy infiltrate in the lingula has resolved since 03/01/19. IMPRESSION: Unremarkable AP chest. CT HEAD WITHOUT CONTRAST: HISTORY: Syncope, headache. TECHNIQUE: Sequential CT images without contrast. FINDINGS: Images obtained show bilateral prominence of the sulci and ventricles. There are no abnormal intra- or extra-axial blood or fluid collections. There are no focal masses or evidence of mass effect. The eastman white matter differentiation appears within normal limits. Regions of periventricular decreased attenuation are consistent with microangiopathic ischemic disease. The posterior fossa structures including the fourth ventricle, cerebellum, and brainstem appear normal. IMPRESSION: Evidence of atrophy and microangiopathic ischemic disease. No acute intracranial process noted. CT SCAN OF THE CERVICAL SPINE: HISTORY: Left-sided neck pain. TECHNIQUE: Contiguous 1.25 mm axial images of the cervical spine were obtained. Sagittal and coronal reformatted images. FINDINGS: There is normal alignment of the cervical spine. The body, pedicles and posterior ligaments appear normal. No evidence of fracture or subluxation is seen. The spinal canal appears normal. The prevertebral soft tissues appear normal. IMPRESSION: Unremarkable CT of the cervical spine. PROCEDURE: VL VENOUS DUPLEX LE BILAT TECHNIQUE: Duplex Doppler ultrasound examination of the venous system of the right leg and left leg HISTORY: mild dimer elevation COMPARISONS: None FINDINGS: RIGHT LEG: Normal compressibility, vascular patency, and augmentation are present diffusely throughout the visualized portion of the deep veins. No abnormal intraluminal echoes are visualized to suggest deep vein thrombus. IMPRESSION: No ultrasound evidence of DVT in the right leg - Medical Decision Making Patient had a cardiac cath 2 months ago with mild CAD. Patient has known critical aortic stenosis that required surgery. Patient is in the process of presurgical workup with [facility]. Patient have recurrent chest pain unimproved by nitroglycerin and had a syncopal episode this morning. Case discussed with the personalization specialist here who advised transfer to [facility]. At the moment discussed case with [facility] carpenters supervisor with the patient for transfer. Patient received Dilaudid 0.5 mg dose 2 for pain and Zofran for nausea. CT head and cervical spine are unremarkable - Differential Diagnosis anemia, stenosis, arrhythmia, pulmonary embolism, dissection Critical Care Time: No Critical care attestation.: If time is entered above; I have spent that time in minutes in the direct care of this critically ill patient, excluding procedure time. ED Disposition Clinical Impression: Syncope, Chest pain, Aortic stenosis Disposition: DC/TX-70 ANOTHER TYPE HLTHCARE Is pt being admited?: No Condition: Stable Time of Disposition: 12:30 (accepted to [facility] awaiting bed assignment)
[2019-04-23 10:57] LABS: Eosinophils # (Auto) 0.1 K/mm3 (0.0-0.4); Eosinophils % (Auto) 1.8 % (0.0-4.3); Hematocrit 39.6 % (35.5-45.6); Lymphocytes # (Auto) 0.9 K/mm3 (1.2-5.4); Lymphocytes % (Auto) 18.2 % (13.4-35.0); Mean Corpuscular HGB Conc 33 % (32-34); Mean Corpuscular Volume 85 fl (84-94); Monocytes # (Auto) 0.4 K/mm3 (0.0-0.8); Monocytes % (Auto) 7.8 % (0.0-7.3); Platelet Count 203 K/mm3 (140-440); Red Blood Count 4.65 M/mm3 (3.65-5.03); Red Cell Distribution Width 16.3 % (13.2-15.2)
[2019-04-23 11:07] LABS: INR 1.05 (0.87-1.13)
[2019-04-23 11:08] LABS: Partial Thromboplastin Time 28.7 Sec. (24.2-36.6)
[2019-04-23 11:18] LABS: Alanine Aminotransferase 19 units/L (7-56); Albumin 3.7 g/dL (3.9-5); BUN/Creatinine Ratio 9; Blood Urea Nitrogen 11 mg/dL (9-20); Calcium 8.4 mg/dL (8.4-10.2); Hemolysis Index 5
--- NOTE | 2019-04-23 11:18 | XRay Report ---
AP CHEST: HISTORY: Chest pain, syncope AP view of the chest demonstrates a normal mediastinal and cardiac contour with clear lungs and normal bony and soft tissue structures. Subtle patchy infiltrate in the lingula has resolved since 03/01/19. IMPRESSION: Unremarkable AP chest.
--- NOTE | 2019-04-23 12:23 | Cat Scan Report ---
CT HEAD WITHOUT CONTRAST: HISTORY: Syncope, headache. TECHNIQUE: Sequential CT images without contrast. FINDINGS: Images obtained show bilateral prominence of the sulci and ventricles. There are no abnormal intra- or extra-axial blood or fluid collections. There are no focal masses or evidence of mass effect. The eastman white matter differentiation appears within normal limits. Regions of periventricular decreased attenuation are consistent with microangiopathic ischemic disease. The posterior fossa structures including the fourth ventricle, cerebellum, and brainstem appear normal. IMPRESSION: Evidence of atrophy and microangiopathic ischemic disease. No acute intracranial process noted.
--- NOTE | 2019-04-23 12:25 | Cat Scan Report ---
CT SCAN OF THE CERVICAL SPINE: HISTORY: Left-sided neck pain. TECHNIQUE: Contiguous 1.25 mm axial images of the cervical spine were obtained. Sagittal and coronal reformatted images. FINDINGS: There is normal alignment of the cervical spine. The body, pedicles and posterior ligaments appear normal. No evidence of fracture or subluxation is seen. The spinal canal appears normal. The prevertebral soft tissues appear normal. IMPRESSION: Unremarkable CT of the cervical spine.
--- NOTE | 2019-04-23 13:01 | Consultation ---
History of Present Illness Consult date: 04/23/19 Requesting physician: ABHAY DELGADO Consult reason: chest pain, known to you, syncope History of present illness: The patient is a 68 YO male with a past medical history of severe calcific aortic stenosis, nonobstructive CAD, paroxysmal atrial fibrillation, COPD on home oxygen therapy and CVA with residual left hemiparesis. He is followed in our office by Dr. Solano and is currently being evaluated by Dr. Kidd at [facility] for TAVR/EVELYNE. He presented with c/o chest pain and syncope. Patient states he has been having and some moderate substernal and left-sided chest pain described as a "pushing sensation". Patient took 4-5 nitroglycerin throughout the night which temporarily alleviated pain and went to sleep but and woke up with recurrent pain throughout the night. Patient also c/o persistent nausea without vomiting. He denies shortness of breath. Today while ambulating he clutched his chest "passed out". Patient next remembers being in route to the hospital. His family member at bedside states pt had a similar episode of syncope last week. Yesterday, pt was seen by Dr. Kidd, CT surgeon at [facility]. He underwent chest CTA yesterday with no acute findings, echo done yesterday showed EF 55%, mild LVH, AV bicuspid and mod calcified, mod , The aortic valve max velocity is 3.44 m/s. The peak gradient is 47.3 mmHg with a mean gradient of 26.0 mmHg, the left ventricle outflow tract measures 2.60 cm. Aortic valve area is 1.38 cm with VTI index of 0.61 cm/m, grade 1 diastolic dysfunction, mildly enlarged RV, RVSP 36.5mmHg, mildly dilated ascending aorta. C 02/2019 showed nonobstructive CAD, unable to enter LV. Per Dr. Kidd's office note yesterday, "I have independently seen and examined this patient and find the patient to be at intermediate risk for open aortic valve replacement surgery, STS PROM 2.865%. This decision is based on the patient's age, STS PROM, and walk test. The patient is at least intermediate risk for AVR and would benefit from treatment. I have discussed continued medic al management, SAVR, and TAVR. Risks of TAVR include 1-2% risk of , stroke, or AK, 10% risk of PPM, and small risks of renal failure, heart attack, and damage to an artery or neighboring organ that would require an additional operation. He and his voiced understanding and would like to proceed with TAVR." Past History Past Medical History: other (as per HPI) Medications and Allergies Allergies Allergy/AdvReac Type Severity Reaction Status Date / Time Penicillins Allergy Severe Swelling Verified 03/01/19 23:25 bismuth subsalicylate AdvReac Vomiting Verified 03/01/19 23:25 [From Pepto-Bismol] squash Allergy Hives Uncoded 11/30/15 14:39 Home Medications Medication Instructions Recorded Confirmed Last Taken Type Modafinil [Provigil] 200 mg PO QDAY #30 tablet 01/22/15 03/01/19 12/09/15 09:00 Rx DULoxetine [Cymbalta] 60 mg PO QDAY #30 capsule 12/05/18 04/23/19 Unknown Rx Furosemide [Lasix TAB] 40 mg PO DAILY tablet 12/05/18 04/23/19 Unknown Rx Gabapentin [Neurontin] 100 mg PO Q8HR #90 capsule 12/05/18 04/23/19 Unknown Rx Mirtazapine [Remeron 15mg TAB] 45 mg PO QHS #30 tablet 12/05/18 04/23/19 Unknown Rx Omeprazole 40 mg PO BID #60 capsule. 12/05/18 03/01/19 Unknown Rx QUEtiapine [SEROquel] 200 mg PO BID #60 tablet 12/05/18 03/01/19 Unknown Rx diazePAM [Diazepam] 2 mg PO QHS #30 tablet 12/05/18 04/23/19 Unknown Rx Insulin Aspart [NovoLOG 100 10 units SUB-Q AC 03/01/19 03/01/19 Unknown History UNITS/ML VIAL] Insulin Glargine [Lantus VIAL] 35 units SUB-Q QHS 03/01/19 03/01/19 Unknown History Rosuvastatin Calcium [Crestor] 20 mg PO HS 03/01/19 04/23/19 Unknown History Aspirin EC 81 mg PO QDAY #30 tablet. 03/04/19 Unknown Rx ISOSORBIDE MONOnitrate [Imdur ER] 30 mg PO QDAY #30 tablet 03/04/19 04/23/19 Unknown Rx Metoprolol [Lopressor TAB] 25 mg PO BID #60 tablet 03/04/19 Unknown Rx Trazodone HCl 300 mg PO QHS 04/23/19 04/23/19 Unknown History metFORMIN [Glucophage] 1,000 mg PO BID 04/23/19 04/23/19 Unknown History Review of Systems Constitutional: no weight loss, no weight gain, no fever, no chills, no sweats Ears, nose, mouth and throat: no ear pain, no nose pain, no sinus pressure, no sinus pain Cardiovascular: chest pain, syncope, lightheadedness, shortness of breath, no orthopnea, no palpitations, no rapid/irregular heart beat, no edema Respiratory: shortness of breath, no cough, no congestion, no wheezing, no pain on inspiration Gastrointestinal: nausea, no diarrhea, no constipation, no change in bowel habits Genitourinary Male: no dysuria, no hematuria, no flank pain, no discharge, no urinary frequency, no urinary hesitancy Musculoskeletal: no neck stiffness, no neck pain, no shooting arm pain, no arm numbness/tingling, no low back pain, no shooting leg pain Integumentary: no rash, no pruritis, no redness, no sores, no wounds Neurological: syncope, no head injury, no paralysis, no parathesias, no numbness, no tingling, no seizures Psychiatric: no anxiety Endocrine: no cold intolerance, no heat intolerance Hematologic/Lymphatic: no easy bruising, no easy bleeding Allergic/Immunologic: no urticaria, no wheezing Physical Examination Vital Signs Temp Pulse Resp BP Pulse Ox 97.5 F L 71 18 116/82 98 04/23/19 10:20 04/23/19 10:20 04/23/19 10:20 04/23/19 10:20 04/23/19 10:20 General appearance: no acute distress HEENT: Positive: PERRL, Normocephaly, Mucus Membranes Moist Neck: Positive: neck supple, trachea midline Cardiac: Positive: Reg Rate and Rhythm, S1/S2, Systolic Murmur Lungs: Positive: Decreased Breath Sounds Neuro: Positive: Grossly Intact Abdomen: Positive: Soft. Negative: Tender Skin: Negative: Rash, Wound Musculoskeletal: No Pain Extremities: Absent: edema Results 04/23/19 10:40 04/23/19 10:40 Cardiac Enzymes 04/23/19 Range/Units 10:40 AST 24 (5-40) units/L Coagulation 04/23/19 Range/Units 10:40 PT 13.4 (12.2-14.9) Sec. INR 1.05 (0.87-1.13) APTT 28.7 (24.2-36.6) Sec. CBC 04/23/19 Range/Units 10:40 WBC 4.7 (4.5-11.0) K/mm3 RBC 4.65 (3.65-5.03) M/mm3 Hgb 13.0 (11.8-15.2) gm/dl Hct 39.6 (35.5-45.6) % Plt Count 203 (140-440) K/mm3 Lymph # 0.9 L (1.2-5.4) K/mm3 [place] # 0.4 (0.0-0.8) K/mm3 Eos # 0.1 (0.0-0.4) K/mm3 Baso # 0.0 (0.0-0.1) K/mm3 Comprehensive Metabolic Panel 04/23/19 Range/Units 10:40 Sodium 140 (137-145) mmol/L Potassium 4.4 (3.6-5.0) mmol/L Chloride 103.1 (98-107) mmol/L Carbon Dioxide 28 (22-30) mmol/L BUN 11 (9-20) mg/dL Creatinine 1.2 (0.8-1.5) mg/dL Glucose 189 H (75-100) mg/dL Calcium 8.4 (8.4-10.2) mg/dL AST 24 (5-40) units/L ALT 19 (7-56) units/L Alkaline Phosphatase 51 (35-129) units/L Total Protein 6.3 (6.3-8.2) g/dL Albumin 3.7 L (3.9-5) g/dL - Imaging and Cardiology Echo: report reviewed Cardiac cath: report reviewed (02/2019 showed nonobstructive CAD, unable to enter LV. ) EKG: report reviewed, image reviewed EKG interpretations - Telemetry EKG Rhythm: Sinus Rhythm - EKG Sinus rhythms and dysrhythmias: sinus rhythm Assessment and Plan Pt presented with syncope and chest pain. He is known to have severe aortic stenosis and is currently being evaluated by Dr. Kidd at [facility] for TAVR/EVELYNE. ECG with NAF, [place] negative for AMI. Pt's symptoms are likely secondary to and pt may require TAVR/EVELYNE in the very near future. We have arranged for pt to be tx to [facility] where Dr. Markham will accept pt for further eval/management. D/w Dr. Delgado. The patient has been seen in conjunction with Dr. Uvaldo Cobos who agrees with the assessment and plan of care. - Patient Problems (1) Chest pain Current Visit: Yes Status: Acute (2) Syncope Current Visit: Yes Status: Acute (3) CAD (coronary artery disease) Current Visit: Yes Status: Chronic Qualifiers: Coronary Disease-Associated Artery/Lesion type: [place] artery (4) NSVT (nonsustained ventricular tachycardia) Current Visit: Yes Status: Acute (5) COPD (chronic obstructive pulmonary disease) Onset Date: 12/31/13 Current Visit: Yes Status: Chronic (6) Hypertension Current Visit: Yes Status: Chronic Qualifiers: Hypertension type: essential hypertension Qualified Code(s): I10 - Essential (primary) hypertension (7) Diabetes Current Visit: Yes Status: Chronic Qualifiers: Diabetes mellitus complication status: without complication (8) History of pulmonary embolism Current Visit: No Status: Chronic (9) H/O: CVA (cerebrovascular accident) Current Visit: Yes Status: Chronic (10) Aortic stenosis Current Visit: Yes Status: Chronic (11) Paroxysmal atrial fibrillation Current Visit: Yes Status: Chronic
--- NOTE | 2019-04-23 13:05 | Vascular Lab Report ---
PROCEDURE: VL VENOUS DUPLEX LE BILAT TECHNIQUE: Duplex Doppler ultrasound examination of the venous system of the right leg and left leg HISTORY: mild dimer elevation COMPARISONS: None FINDINGS: RIGHT LEG: Normal compressibility, vascular patency, and augmentation are present diffusely throughout the visua lized portion of the deep veins. No abnormal intraluminal echoes are visualized to suggest deep vein thrombus. IMPRESSION: No ultrasound evidence of DVT in the right leg LEFT LEG: Normal compressibility, vascular patency, and augmentation are present diffusely throughout the visua lized portion of the deep veins. No abnormal intraluminal echoes are visualized to suggest deep vein thrombus. In distal left calf region, there is a nonspecific small ovoid hypoechoic collections measuring 6 x 1 7 mm. This reportedly corresponds to an area of concern. Color Doppler imaging reveals no abnormal va scularity in this lesion. It is between 23 and 30 mm deep to the skin surface. IMPRESSION: No ultrasound evidence of DVT in the left leg Nonspecific slightly heterogeneous hypoechoic collection in distal left calf. This may be complex flu id, possibly hematoma. Differential includes infection. This document is electronically signed by Kt Patel MD., April 23 2019 01:03:06 PM ET
[2019-04-23 17:20] VITALS: BP 147/88
== END 2019-04-23 17:45 | disposition other institution (70) ==
LOC: ED 10:01
DX: I35.0 Nonrheumatic aortic (valve) stenosis (principal); R55 Syncope and collapse; I10 Essential (primary) hypertension; I50.9 Heart failure, unspecified; I25.2 Old myocardial infarction; E11.9 Type 2 diabetes mellitus without complications; K21.9 Gastro-esophageal reflux disease without esophagitis; M19.90 Unspecified osteoarthritis, unspecified site; J44.9 Chronic obstructive pulmonary disease, unspecified; I48.91 Unspecified atrial fibrillation; Z86.718 Personal history of other venous thrombosis and embolism; Z96.653 Presence of artificial knee joint, bilateral; Z86.73 Personal history of transient ischemic attack (TIA), and cerebral infarction without residual deficits; Z95.1 Presence of aortocoronary bypass graft; Z90.49 Acquired absence of other specified parts of digestive tract; Z87.891 Personal history of nicotine dependence; Z79.899 Other long term (current) drug therapy; Z79.82 Long term (current) use of aspirin; Z79.4 Long term (current) use of insulin; Z88.0 Allergy status to penicillin; Z88.8 Allergy status to other drugs, medicaments and biological substances
CPT/HCPCS: 36415; 70450; 71045; 72125; 80053; 84484; 85025; 85379; 85610; 85730; 93005; 93010; 93970; 96374; 96375; 96376; 99285; J1170; J2405; 82962